=== PATIENT | female | born 1990 | race Caucasian/White ===

== ENCOUNTER 2023-04-22 02:05 | Emergency (ER) | payer OTHER, SELFPAY ==
--- NOTE | ~2023-04-22 | XR_ITS ---
Right ankle Technique: AP, oblique, and lateral views were obtained. Clinical History: Pain Findings: No acute fracture or dislocation is seen. There is a chronic nonunited fracture versus larg e secondary ossification center at the tip of the lateral malleolus. Ankle mortise and other visualiz ed joint spaces are preserved. Soft tissues are otherwise unremarkable. Impression: No acute abnormality evident. 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 Reviewed, dictated and finalized at location M. Impression: No acute abnormality evident. Chronic nonunited fracture versus large persistent secondary ossification cente r at the tip of the lateral malleolus.
[2023-04-22 02:06] VITALS: BP 136/84; PULSE 86; RESP 18; TEMP 36.4; O2SAT 99
--- NOTE | 2023-04-22 02:45 | ED.LOWEXIN ---
HPI - Extremity Injury (Lower) General Chief Complaint: Fall Stated Complaint: Right Ankle Injury Time Seen by Provider: 04/22/23 02:40 Source: patient and RN notes reviewed Mode of arrival: ambulatory Limitations: no limitations History of Present Illness MD complaint: ankle injury Onset (ago): day(s) (1) Type of Injury: inversion Place: home Severity: moderate Relieving factors: rest Exacerbating factors: weight bearing, movement and palpation Context: walking Associated symptoms: swelling and able to partially bear weight Other symptoms: none Related Data Home Medications Medication Instructions Recorded Confirmed adalimumab 40 mg/0.4 mL 40 mg subcut 04/22/23 subcutaneous pen kit (Humira(CF) Pen) ergocalciferol (vitamin D2) 1,250 1,250 mcg 04/22/23 mcg (50,000 unit) capsule famotidine 40 mg tablet 40 mg 04/22/23 ketoconazole 2 % shampoo topical 04/22/23 liraglutide 0.6 mg/0.1 mL (18 mg/3 mg subcut 04/22/23 mL) subcutaneous pen injector (Docracytoza 3-Anuj) metformin 500 mg tablet 500 mg 04/22/23 oxcarbazepine 300 mg tablet mg 04/22/23 (Trileptal) pen needle, diabetic 32 gauge x 04/22/23 04/22/23 (TRUEplus Pen Needle) spironolactone 100 mg tablet 100 mg 04/22/23 topiramate 50 mg tablet mg 04/22/23 Allergies Allergy/AdvReac Type Severity Reaction Status Date / Time amoxicillin [From Augmentin] Allergy Other Verified 04/22/23 02:08 clavulanic acid Allergy Other Verified 04/22/23 02:08 [From Augmentin] metronidazole Allergy Other Verified 04/22/23 02:08 nalbuphine [From Nubain] Allergy Other Verified 04/22/23 02:08 Review of Systems Review of Systems: All systems reviewed & are unremarkable except as noted in HPI and below PMFSH Past Medical History Medical History (Updated 04/22/23 @ 02:53 by Hever Lau MD) History of PCOS Migraines Type 2 diabetes mellitus Exam Const: General: healthy appearing, no acute distress and alert Nutritional Appearance: well nourished and obese Orientation/consciousness: patient oriented x3 Limitations: no limitations Other: female tech in room during examination. HENMT: Head: normal to inspection Ears: external ears normal Face/Nose/Sinus: Normal external nose present Face and sinus: normal facial exam Mouth: Yes moist mucous membranes Eyes: Conjunctivae: conjunctivae normal Pupils: Equal, round and reactive pupils present EOM: EOMs intact bilaterally Neck: Neck: normal visual inspection Resp: Effort & Inspection: normal respiratory effort Auscultation: clear to auscultation bilaterally Cardio: Rate: regular rate Rhythm: regular rhythm GI: GI Palp: Yes Soft to palpation and No Tenderness to palpation present (GI) Auscultation: normal bowel sounds Back/Spine/Pelvis: Cervical Spine: cervical ROM normal Thoracic/Lumbar Spine: thoraco-lumbar ROM normal Skin: General skin exam: normal color Rashes: no rashes Neuro: General: patient oriented x3, moves all extremities, no focal motor deficits and CN's II-XI intact bilaterally Speech: normal speech Extrem: General: normal exam except as noted and no clubbing, cyanosis or edema Right lower extremity: ankle Details: tenderness Location: anteromedially and swelling ( Mild) Details: medially and anteriorly Psych: Mental Status: mental status grossly normal Affect: normal affect Attitude: cooperative Course Vital Signs Vital signs: Vital Signs Temperature 36.4 C 04/22/23 02:06 Pulse Rate 86 04/22/23 02:06 Respiratory Rate 18 04/22/23 02:06 Blood Pressure 136/84 04/22/23 02:06 Pulse Oximetry 99 04/22/23 02:06 Oxygen Delivery Room Air 04/22/23 02:06 Temperature 36.4 C 04/22/23 02:06 Pulse Rate 86 04/22/23 02:06 Respiratory Rate 18 04/22/23 02:06 Blood Pressure 136/84 04/22/23 02:06 Pulse Oximetry 99 04/22/23 02:06 Oxygen Delivery Room Air 04/22/23 02:06 MDM - Extremity Injury (Lower) Differential D
[2023-04-22 03:00] VITALS: BP 136/93; PULSE 86; RESP 18; TEMP 36.4
== END 2023-04-22 03:01 | disposition home or self-care (01) ==
PROVIDERS: Emergency Provider Emergency Medicine; PCP Family Medicine
DX: S93.431A Sprain of tibiofibular ligament of right ankle, initial encounter (principal); X50.0XXA Overexertion from strenuous movement or load, initial encounter; E11.9 Type 2 diabetes mellitus without complications; Z79.84 Long term (current) use of oral hypoglycemic drugs; Z79.620 Long term (current) use of immunosuppressive biologic; Z79.85 Long-term (current) use of injectable non-insulin antidiabetic drugs
CPT/HCPCS: 29515; 73610; 99283; L4350

== ENCOUNTER 2024-06-29 17:09 | Emergency (ER) | payer OTHER, SELFPAY ==
[2024-06-29 17:11] VITALS: BP 109/74; PULSE 89; RESP 18; TEMP 36.7; O2SAT 98
== END 2024-06-29 17:48 | disposition left against medical advice (07) ==
LOC: CHSED 17:47
PROVIDERS: Emergency Provider Emergency Medicine
DX: R05.9 Cough, unspecified (principal)
CPT/HCPCS: 99199

== ENCOUNTER 2024-09-22 08:49 | Outpatient (RCR) | payer OTHER, SELFPAY ==
--- NOTE | 2024-09-22 09:40 | PTOPEVAL1 ---
Assessment and note entered by Francisco Henderson Evaluation Information Assessment Status Evaluation ICD-10 Condition Codes (PT) Pain in right hip M25.551 Onset 09/04/24 Subjective Information Pt. reports that about 3 weeks ago she was helping lift her overweight uncle, and noticed right hip pain. She describes pain in the lateral right hip. She states that her pain is constant and worsened with walking or crossing her right leg over the left. She reports that pain makes sleeping difficult and she wakes frequently at night. She recalls no prior hip injury. 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 She states that she can only walk for about 5 minutes currently due to hip pain. She reports that her goal is to reduce her right hip pain and be able to walk longer. Reported Pain Level Pain Score 3: Self Report Assessment PT Clinical Summary Pt. is a 34 year old female who enters the clinic with a diagnosis of low back pain. She presents with proximal l.e. weakness, impaired gait due to pelvic/hip instability, impaired flexibility, impaired postural awareness and pain. Continued skilled PT is indicated in order to improve these areas to allow the pt. to return to normal IADL performance without limitation. Plan of Care Interventions Electrical Stimulation,Gait Training,Hot Pack/Cold Pack,Manual Therapy,Mechanical Traction,Neuro Re- education,Patient/Caregiver Education,Therapeutic Activities,Therapeutic Exercise PT Services Indicated Yes Treatment Frequency and 2x/week x 12 visits Duration These treatments will address the objective and functional deficits as defined above. The patient will be advanced safely and appropriately in order for the patient to progress towards his/her prior level of function. Additional exercises will be introduced and as well as a comprehensive home exercise program upon discharge, if needed, to ensure carryover of functional gains achieved in the clinic. This treatment plan has been reviewed and agreement upon by the patient.
--- NOTE | 2024-09-30 09:39 | PCPTNOTE ---
No call no show. left for pt.
== END 2024-09-22 20:00 | disposition home or self-care (01) ==
LOC: CHSPT 08:49
PROVIDERS: Visit Provider Nurse Practitioner Family
DX: M25.551 Pain in right hip (principal)
CPT/HCPCS: 97110; 97161

== ENCOUNTER 2024-10-03 15:16 | Emergency (ER) | payer OTHER, SELFPAY ==
[2024-10-03 15:17] VITALS: BP 116/83; PULSE 87; RESP 20; TEMP 36.6; O2SAT 98
--- NOTE | 2024-10-03 15:18 | ED_ITS ---
HPI - General Adult General Chief complaint: Nausea/Vomiting/Diarrhea Stated complaint: abdominal pain Time Seen by Provider: 10/03/24 15:18 History of Present Illness HPI narrative: Yancy is a 34F with a PMH of weight loss surgery, that presented to the ED with 3 days of inability to tolerate PO. Anytime she eats she gets terrible epigastric cramps. Today it was much worse and she could not drink anything. Last BM was yesterday. No vomiting, fevers, chest pain or dyspnea. Related Data Home Medications ?Medication ?Instructions ?Recorded ?Confirmed ?Last Taken ?Type adalimumab 40 mg/0.4 mL 40 mg subcut 04/22/23 Unknown History subcutaneous pen kit (Humira(CF) Pen) ergocalciferol (vitamin D2) 1,250 1,250 mcg 04/22/23 Unknown History mcg (50,000 unit) capsule famotidine 40 mg tablet 40 mg 04/22/23 Unknown History ketoconazole 2 % shampoo topical 04/22/23 Unknown History liraglutide 0.6 mg/0.1 mL (18 mg/3 mg subcut 04/22/23 Unknown History mL) subcutaneous pen injector (Mozendaza 3-Anuj) metformin 500 mg tablet 500 mg 04/22/23 Unknown History oxcarbazepine 300 mg tablet mg 04/22/23 Unknown History (Trileptal) pen needle, diabetic 32 gauge x 04/22/23 04/22/23 Unknown History (TRUEplus Pen Needle) spironolactone 100 mg tablet 100 mg 04/22/23 Unknown History topiramate 50 mg tablet mg 04/22/23 Unknown History Allergies Allergy/AdvReac Type Severity Reaction Status Date / Time amoxicillin (From Augmentin) Allergy Other Verified 06/29/24 17:47 clavulanic acid (From Allergy Other Verified 06/29/24 17:47 Augmentin) metronidazole Allergy Other Verified 06/29/24 17:47 nalbuphine (From Nubain) Allergy Other Verified 06/29/24 17:47 Review of Systems 2 Review of Systems: All systems reviewed & are unremarkable except as noted in HPI and below PMFSH Past Medical History Medical History Type 2 diabetes mellitus History of PCOS Migraines Exam 2 Const: General: cooperative, healthy appearing, comfortable, no acute distress, well developed, alert, awake and Physically active O rientation/consciousness: oriented to person, oriented to place and oriented to time HENMT: Head: normal to inspection, normocephalic and atraumatic Ears: h earing grossly normal bilaterally and external ears normal Face/Nose/Sinus: N ormal external nose present Eyes: General: appearance normal, both eyes and all related structures P eriorbital: periorbital findings normal Sclera: sclerae normal Pupils: E qual, round and reactive pupils present Neck: Neck: normal visual inspection Chest: Chest palpation & inspection: normal inspection of the chest Resp: Effort & Inspection: normal respiratory effort, able to speak in complete sentences and no respiratory distress Auscultation: clear to auscultation bilaterally Cardio: Jugular venous distension: no JVD Rate: regular rate Rhythm: r egular rhythm GI: Inspection: normal to inspection GI Palp: Yes Soft to palpation, Yes Tenderness to palpation present (GI), No Guarding due to palpation present (GI), No Palpable mass present and No Rebound tenderness present Auscultation: H ypoactive bowel sounds present Skin: General skin exam: normal color and no rashes or lesions noted Neuro: General: oriented to person, oriented to place and oriented to time Cranial nerves: Yes Equal, round and reactive pupils present Extrem: General: normal to inspection Course Course Emergency Course: Given fluids and dicyclomine. Labs largely unremarkable. UA c/w UTI. Given ceftriaxone. Vital Signs Vital signs: Vital Signs Temperature 97.9 F 10/03/24 15:17 Pulse Rate 87 10/03/24 15:17 Respiratory Rate 20 10/03/24 15:17 Blood Pressure 116/83 10/03/24 15:17 Pulse Oximetry 98 10/03/24 15:17 Oxygen Delivery Room Air 10/03/24 15:17 Temperature 97.9 F 10/03/24 15:17 Pulse Rate 87 10/03/24 15:17 Respiratory Rate 20 10/03/24 15:17 Blood Pressure 116/83 10/03/24 15:17 Pulse Oximetry 98 10/03/24 15:17 Oxygen Delivery Room Air 10/03/24 15:17 Medical Decision Making Vital Signs Vital Signs: Vital Signs Temperature 97.9 F 10/03/24 15:17 Pulse Rate 87 10/03/24 15:17 Respiratory Rate 20 10/03/24 15:17 Blood Pressure 116/83 10/03/24 15:17 Pulse Oximetry 98 10/03/24 15:17 Oxygen Delivery Room Air 10/03/24 15:17 Temperature 97.9 F 10/03/24 15:17 Pulse Rate 87 10/03/24 15:17 Respiratory Rate 20 10/03/24 15:17 Blood Pressure 116/83 10/03/24 15:17 Pulse Oximetry 98 10/03/24 15:17 Oxygen Delivery Room Air 10/03/24 15:17 Lab Data 10/03/24 15:51 10/03/24 15:51 Labs: Lab Results 10/03/24 Range/Units 15:51 WBC 9.8 (4.8-10.8) K/mm3 RBC 5.01 (4.20-5.40) M/mm3 Hgb 14.9 (12.0-15.0) g/dL Hct 44.6 (35.0-49.0) % MCV 89.0 (78.0-102.0) fL MCH 29.7 (27.0-31.0) pg MCHC 33.4 (32-36) g/dL RDW 13.2 (11.6-14.4) % Plt Count 339 (150-420) K/mm3 MPV 9.4 (9.2-11.8) fl Immature Gran % (Auto) 0.3 H (0.0-0.0) % Neut % (Auto) 56.8 (50.0-70.0) % Lymph % (Auto) 36.4 (18.0-42.0) % [place] % (Auto) 5.3 (2.0-11.0) % Eos % (Auto) 0.8 L (1.0-6.0) % Baso % (Auto) 0.4 (0.0-1.0) % Lymph # (Auto) 3.56 (1.10-4.50) K/mm3 [place] # (Auto) 0.52 (0.10-0.90) K/mm3 Eos # (Auto) 0.08 (0.02-0.50) K/mm3 Baso # (Auto) 0.04 (0.00-0.10) K/mm3 Abs Immat Gran (auto) 0.03 H (0.00-0.00) K/mm3 Absolute Neuts (auto) 5.55 (1.70-7.20) K/mm3 Absolute Nucleated RBC 0.00 (0.00-0.00) K/mm3 Nucleated RBC % 0.0 (0-0.0) % Sodium 135 L (136-145) mmol/L Potassium 3.3 L (3.5-5.1) mmol/L Chloride 100 (98-108) mmol/L Carbon Dioxide 27 (21-32) mmol/L Anion Gap 8 (4-12) mmol/L BUN 8 (7-18) mg/dL Creatinine 0.79 (0.55-1.02) mg/dL Estim Creat Clear Calc 85 ml/min Estimated GFR > 60 (59 - ) Glucose 76 (70-99) mg/dL Calculated Osmolality 277 L (285-295) mOsm/kg Lactic Acid 1.0 (0.4-2.0) mmol/L Calcium 8.9 (8.5-10.1) mg/dL Total Bilirubin 0.5 (0.00-1.00) mg/dL AST 17 (15-37) U/L ALT 18 (14-59) U/L Alkaline Phosphatase 104 (46-116) U/L C-Reactive Protein 0.6 (0.0-0.9) mg/dL Total Protein 7.6 (6.4-8.2) g/dL Albumin 3.9 (3.4-5.0) g/dL Lipase 15 L (16-77) U/L Urine Color Yellow (Yellow) Urine Appearance Cloudy A (Clear) Urine pH 5.0 (5.0-8.0) Ur Specific [place] >= 1.030 H (1.010-1.020) Urine Protein Trace H (Negative) Urine Glucose (UA) Negative (Negative) Urine Ketones 1+ H (Negative) Ur Blood (Man) Negative (Negative) Urine Nitrate Positive H (Negative) Urine Bilirubin 2+ H (Negative) Urine Urobilinogen 1.0 (0.2-1.0) mg/dL Leukocyte Esterase Rfl Negative (Negative) APRIL/UL Ur Squamous Epith Cells Many H (Few) /hpf Calcium Oxalate Crystal Present H (None) /hpf Amorphous Sediment Moderate H (None) Urine Bacteria 3+ H (None) /hpf Urine Mucus Heavy H /lpf Urine Test Negative Discharge Plan Discharge Clinical Impression: UTI (urinary tract infection) Patient Disposition: Home, Self-Care Condition: Stable Instructions: Antibiotic Form Patient Language: Nicaraguan Prescriptions: New sulfamethoxazole-trimethoprim [Bactrim DS] 800-160 mg tablet 1 tablet PO Q12H Qty: 10 0RF No Action metformin 500 mg tablet 500 mg ketoconazole 2 % shampoo TOPICAL famotidine 40 mg tablet 40 mg spironolactone 100 mg tablet 100 mg oxcarbazepine [Trileptal] 300 mg tablet ergocalciferol (vitamin D2) 1,250 mcg (50,000 unit) capsule 1,250 mcg topiramate 50 mg tablet Victoza 3-Anuj 0.6 mg/0.1 mL (18 mg/3 mL) pen injector SUBCUT (DME) pen needle, diabetic [TRUEplus Pen Needle] 32 gauge x 5/32 needle MISCELLANEOUS Humira(CF) Pen 40 mg/0.4 mL pen injector kit 40 mg SUBCUT Follow-up/Referrals: Danica Blair MD [Primary Care Provider] -
--- OUTSIDE RECORDS SUMMARY | 2024-10-03 15:19 | XMS_ITS | Referral Summary ---
Author Organization [facility] Address [address] [place] [address] Care Team Providers Care Broadcast Meteorologist Name Role Phone Unavailable Primary Care Provider Unavailabl e Source Comments [facility],non-owned Affiliates and Associated Physician Practices is amultiple site organization consisting of ambulatory clinics and hospital sitesin [place], [place], [place] and [place]. This disclosure is being madepursuant to the Care Everywhere program and may not contain all information available regarding this patient. Last updated 18.[facility] Social History Tobacco Use Types Packs/Day Years Used Date Smoking Tobacco: Never Assessed Sex and Gender Information Value Date Recorded Sex Assigned at Not on file Gender Identity Not on file Sexual Orientation Not on file Plan of Treatment Not on file
--- OUTSIDE RECORDS SUMMARY | 2024-10-03 15:19 | XMS_ITS | Clinical Summary ---
Author Organization [facility] Address [address] [place] [address] Care Team Providers Care Asphalt Roller Person Name Role Phone Unavailable Primary Care Provider Unavailabl e Source Comments [facility],non-owned Affiliates and Associated Physician Practices is amultiple site organization consisting of ambulatory clinics and hospital sitesin [place], [place], [place] and [place]. This disclosure is being madepursuant to the Care Everywhere program and may not contain all information available regarding this patient. Last updated 18.[facility] [employer] Social History Tobacco Use Types Packs/Day Years Used Date Smoking Tobacco: Never Assessed Sex and Gender Information Value Date Recorded Sex Assigned at Not on file Gender Identity Not on file Sexual Orientation Not on file Plan of Treatment Health Maintenance Due Date Last Done Comments PAP SMEAR 1991 HIV SCREENING 2006 HEPATITIS C SCREENING 03/06/2009 DTAP/TDAP/TD VACCINES (1 - Tdap) 2010 HEPATITIS B VACCINE (1 of 3 - 19+ 3-dose series) 2010 COVID-19 VACCINE ( - 2023-2 5 season) 2024 INFLUENZA VACCINE (#1) 2024 DEPRESSION SCREENING 07/21/2024 ZOSTER VACCINE (1 of 2) 2041 HIB VACCINE Aged Out No longer eligi ble based on patient's age to complete this topic HPV VACCINE Aged Out No longer eligi ble based on patient's age to complete this topic MENINGOCOCCAL (Group B) VACC INE SHARED DECISION-MAKING Aged Out No longer eligibl e based on patient's age to complete this topic MENINGOCOCCAL GROUPS A/C/Y/W VACCINE Aged Out No longer eligible b ased on patient's age to complete this topic PNEUMOCOCCAL VACCINE Aged Out No long er eligible based on patient's age to complete this topic
--- OUTSIDE RECORDS SUMMARY | 2024-10-03 15:19 | XMS_ITS | Patient Health Summary ---
Author Organization [facility] Address [address] [place] [address] Care Team Providers Care Dental Technician Apprentice Name Role Phone Unavailable Primary Care Provider Unavailabl e Note from [facility] [place],non-owned Affiliates and Associated Physician Practices is amultiple site organization consisting of ambulatory clinics and hospital sitesin [place], [place], [place] and [place]. This disclosure is being madepursuant to the Care Everywhere program and may not contain all information available regarding this patient. Last updated 18.[facility] Social History Tobacco Use Types Packs/Day Years Used Date Smoking Tobacco: Never Assessed Sex and Gender Information Value Date Recorded Sex Assigned at Not on file Gender Identity Not on file Sexual Orientation Not on file
[2024-10-03] MEDS: LACTATED RINGERS 1,000 ML 999 ML IV CONT (15:43)
[2024-10-03] MEDS: DICYCLOMINE HCL INJ 20 MG/2 ML VIAL IM (15:44)
--- OUTSIDE RECORDS SUMMARY | 2024-10-03 15:52 | XMS_ITS | Referral Summary ---
Author Organization [facility] Address [address] [place] [address] Care Team Providers Care Blood Collector Name Role Phone Unavailable Primary Care Provider Unavailabl e Source Comments [facility],non-owned Affiliates and Associated Physician Practices is amultiple site organization consisting of ambulatory clinics and hospital sitesin [place], [place], [place] and [place]. This disclosure is being madepursuant to the Care Everywhere program and may not contain all information available regarding this patient. Last updated 18.[facility] Social History Tobacco Use Types Packs/Day Years Used Date Smoking Tobacco: Never Assessed Sex and Gender Information Value Date Recorded Sex Assigned at Not on file Gender Identity Not on file Sexual Orientation Not on file Plan of Treatment Not on file
--- OUTSIDE RECORDS SUMMARY | 2024-10-03 15:52 | XMS_ITS | Encounter Summary ---
Author Organization [facility] Address [address] [place] [address] Phone Care Team Providers Care Manifest Clerk Name Role Phone Danica Blair MD Primary Care Provider Rachel Moreira PT Unavailable Unavailable Encounter Details Date Type Department Care Team (Latest Contact Info) Description 09/18/2022 Orders Only [facility] Scanning, Provider Social History Tobacco Use Types Packs/Day Years Used Date Smoking Tobacco: Every Day Vaping Smokeless Tobacco: Never Comments Unknown Sex and Gender Information Value Date Recorded Sex Assigned at Not on file 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 Gender Identity Not on file Sexual Orientation Not on file documented as of this encounter Plan of Treatment Not on file documented as of this encounter Procedures Procedure Name Priority Date/Time Associated Diagnosis Comments SCAN - LABS 09/18/2022 documented in this encounter Results * SCAN - LABS (09/18/2022) us Provider Scanning Final Result documented in this encounter Visit Diagnoses Not on filedocumented in this encounter Care Teams Manifest Clerk Relationship Specialty Start Date End Date Danica Blair MD [address] [place] [address] PCP - General Family Medicine 06/18/21 Rachel Moreira, PT Physical Therapist Physical Therapy 07/24/23 07/24/23 documented as of this encounter
--- OUTSIDE RECORDS SUMMARY | 2024-10-03 15:52 | XMS_ITS | Referral Summary ---
Author Organization [facility] [address] [facility] Address [address] [place] [address] Care Team Providers Care Psych Np Name Role Phone Danica Blair MD Primary Care Provider Encounters Date Type Department Care Team Description 08/12/2024 11:00 AM PARALEGALS Office Visit [facility] [address] [place] [address] Medical Office Building [address] [place] [address] Agapito Steven MD Morbid obesity (HCC) (Primary Dx) from Last 3 Months Allergies Active Allergy Reactions Criticality Noted Date Comments Amoxicillin-Pot Clavulanate Nausea & Vomiting Low 05/03/2022 Metronidazole Other (See comments) Low 05/03/2022 Red face and disoriented Nalbuphine Other (See comments) Low 05/03/2022 Forgot to breath Medications Humira,CF, Pen 40 mg/0.4 mL pen injector kitIndications:H irdradentis Suppurativa Inject 0.4 mL (40 mg total) under the skin every 7 days 2 Active ergocalciferol (VITAMIN D) 50,000 unit capsule Take 1 capsule (50,000 Units total) by mouth once a week Friday 1 Active pen needle, diabetic (TRUEplus Pen Needle) 32 gauge x 5/32 needle USE DAILY DIRECTED 300 each 1 4 Active cyclobenzaprine (FLEXERIL) 10 mg tablet Take 1 tablet (10 mg total) by mouth every 8 (eight) hours Post surgery: Every 8 hours for 4 days 12 tablet 4 Active Additional Information Patient not taking.Informant: Self, Reported on 08/12/2024 cyanocobalamin (Vitamin B-12) 500 mcg tablet Take 1 tablet (500 mcg total) by mouth daily Start post Surgery 90 tablet 3 4 04/28/20 25 Active calcium citrate-vitamin D3 200 mg-6.25 mcg (250 unit) tablet Take 2 tablets by mouth 3 (three) times a day Start post-surgery 540 tablet 3 4 04/28/20 25 Active ondansetron (ZOFRAN) 4 mg tablet Take 1 tablet (4 mg total) by mouth every 8 (eight) hours as needed for nausea or vomiting Start post-surgery 20 tablet 2 4 Active ursodioL (ACTIGALL) 300 mg capsule Take 1 capsule (300 mg total) by mouth 2 (two) times a day Start post-surgery 180 capsule 1 4 10/26/19 25 Active polyethylene glycol (MIRALAX) 17 gram/dose bulk powder Take 17 g by mouth 2 (two) times a day Start post-surgery 1020 g 4 Active hyoscyamine (LEVSIN) 0.125 mg SL tabletIndication s:Gastric Cramping Take 1 tablet (0.125 mg total) by mouth every 6 (six) hours for 4 days Start post-surgery 16 tablet 4 Active omeprazole (PriLOSEC) 20 mg capsule Take 1 capsule (20 mg total) by mouth 2 (two) times a day START POST SURGERY 60 capsule 4 Active multivitamin with minerals tablet Take 2 tablets by mouth daily Start taking post surgery 60 tablet 11 4 04/28/20 25 Active valACYclovir (VALTREX) 1 gram tabletIndication s:Fever Blister Take 1 tablet (1,000 mg total) by mouth daily as needed (Fever Blister) 4 Active Strattera 80 mg capsule Take 1 capsule (80 mg total) by mouth 2 (two) times a day 4 Active liraglutide (VICTOZA) 0.6 mg/0.1 mL (18 mg/3 mL) injectionIndicat ions:type 2 diabetes mellitus Inject 1.8 mg under the skin daily Indications: type 2 diabetes mellitus Active Active Problems Problem Noted Date Diagnosed Date Morbid (severe) obesity due to excess calories 1 Morbid obesity 04/08/2024 Hair loss 10/20/2023 Assessment & Plan (10/20/2023 10:40 AM CDT): Briefly discussed TE and potential contributing factors including stress, medication, weight loss/diet/nutritional deficiencies. Ferritin a little under 50 -- consider iron supplement -- ferrous sulfate 325 mg every other day. Vitamin D deficiency 10/20/2023 Weight loss counseling, encounter for 09/25/2022 Assessment & Plan (01/13/2023 10:15 PM CDT): Reviewed calorie restriction based on BMR as previously detailed. Reviewed recommendation/goal of >/= 150 minutes/week moderate-intensity aerobic exercise. Asked to keep detailed food diary for at least 1 week and bring to next visit and/or continue tracking on phone. Assessment & Plan (09/25/2022 10:06 PM PARALEGALS): Discussed that significant health benefits/risk reduction may be seen with even 5% weight loss. Discussed that weight loss will require calorie deficit. Calculated basal metabolic rate and estimated total energy expenditure; discussed 500-1000 kcal/day deficit to lose 1-2 lb per week. Asked to keep detailed food diary for at least 1 week and bring to next visit. Discussed setting SMART goals. Discussed relatively small, although significant, role of exercise in weight loss; greater importance in weight maintenance as shown in Look Ahead study and National Weight Control Registry. Discussed recommendation/goal for 150 minutes per week moderate-intensity aerobic exercise. Class 3 severe obesity due t o excess calories with serious comorbidity and body mass index (BMI) of 40.0 to 44.9 in adult 09/25/2022 Assessment & Plan (01/13/2023 10:22 PM CDT): Obesity is unchanged.. Plan: Diet interventions: as noted.., Regular aerobic exercise program discussed., and Medication as prescribed. Follow up in [] 1 month; [] 2 months; [x] 3 months; [] 6 months; [] Other: Assessment & Plan (09/25/2022 10:10 PM PARALEGALS): Obesity is unchanged.. Plan: General weight loss/lifestyle modification strategies discussed (elicit support from others; identify saboteurs; non-food rewards; etc.)., Diet interventions: as noted.., Informal exercise measures discussed; e.g. taking stairs instead of elevator., Regular aerobic exercise program discussed. and Further, more detailed recommendations pending review of labs and food record. Type 2 diabetes mellitus wit hout complication, without long-term current use of insulin 05/03/2022 Assessment & Plan (01/13/2023 10:18 PM CDT): Reviewed most recent labs available. Continue low-carb (<150 g/day), low- glycemic diet. Discussed options and will add GLP-1 analog. Discussed risks, benefits, alternatives, potential side effects. No personal or family history of MTC or MEN2. Reviewed dosing/titration; for patients seen in the office, reviewed proper administration using demo pen; reviewed appropriate storage. Referred to websites for additional instructions/info/video. Start liraglutide. Assessment & Plan (09/25/2022 10:08 PM PARALEGALS): Labs. Reviewed available prior labs in chart and Care Everywhere. Continue metformin. Good candidate for tirzepatide or GLP-1 RA. NAFLD (nonalcoholic fatty liver disease) 022 Assessment & Plan (09/25/2022 10:08 PM PARALEGALS): Discussed association with insulin resistance. Discussed potential for improvement and/or reduced progression with weight loss. Resolved Problems Problem Noted Date Diagnosed Date Resolved Date Obesity (BMI 30-39.9) 10/20/20232023 BMI 38.0-38.9,adult 05/03/2022 11/23/19 24 Social History Tobacco Use Types Packs/Day Years Used Date Smoking Tobacco: Former Cigarettes 0.5 24 0 08/1999 - 08/2023 Vaping Passive Smoke Exposure: Past Smokeless Tobacco: Never Tobacco Cessation:Counseling Given: Not Answered AUDIT-C Answer Date Recorded Q1: How often do you have a drink containing alcohol? Never 08/12/2024 Q2: How many drinks containi ng alcohol do you have on a typical day when you are drinking? Patient does not drink Q3: How often do you have si x or more drinks on one occasion? Never 08/12/2024 Personal Safety Answer Date Recorded Have you ever been in or are you currently in a harmful physical or emotional relationship or is someone making you feel afraid or unsafe? Denies 05/10/2024 Comments No Sex and Gender Information Value Date Recorded Sex Assigned at Not on file Legal Sex Female 11:49 AM PARALEGALS Gender Identity Not on file Sexual Orientation Not on file Last Filed Vital Signs Vital Sign Reading Time Taken Comments Blood Pressure 110/79 08/12/2024 10:47 AM PARALEGALS Pulse 81 08/12/2024 10:47 AM PARALEGALS Temperature 36.7 C (98.1 F) 06/24/2024 10:29 AM PARALEGALS Respiratory Rate 16 05/11/2024 11:53 AM CDT Oxygen Saturation 97% 08/12/2024 10:47 AM PARALEGALS Inhaled Oxygen Concentration - - Weight 86 kg (189 lb 9.6 oz) 08/12/2024 10:47 AM PARALEGALS Height 160 cm (5' 3 ) 08/12/2024 10:47 AM PARALEGALS Body Mass Index 33.59 08/12/2024 10:47 AM PARALEGALS Plan of Treatment Not on file Procedures Procedure Name Priority Date/Time Associated Diagnosis Comments EGFR Routine 05/10/2024 10:02 PM CDT POCT HEMOGLOBIN A1C Routine 05/05/2024 4 :54 PM CDT HEPATITIS C ANTIBODY Routine 11/21/2023 10:08 AM CDT NAFLD (nonalcoholic fatty liver disease) LIPID PANEL Routine 05/03/2022 9:26 AM CDT Hepatic steatosis Type 2 diabetes mellitus without complication, without long-term current use of insulin (HCC) from Last 3 Months or Most Recently Relevant to Health Maintenance Results * eGFR (05/10/2024 10:02 PM CDT) eGFR >90 >=60 mL/min/1. 73 m2 Comment: Interpretive Data Reference Interval Normal >/= 90 mL/min/1.73m2 Mildly decreased* 60 - 89 mL/min/1.73m2 Mildly to moderately decreased 45 - 59 mL/min/1.73m2 Moderately to severely decreased 30 - 44 mL/min/1.73m2 Severely decreased 15 - 29 mL/min/1.73m2 Kidney Failure < 15 mL/min/1.73m2 *Relative to young adult level Estimated glomerular filtration rate is determined by the 2020 CKD-EPI equation recommended by the National Kidney Foundation (A Unifying Approach to GFR Estimation: Recommendations of the NKF-ASK Task Force on Reassessing the Inclusion of Race in Diagnosing Kidney Disease, JASN 2020). The CKD-EPI equation should not be used for patients with unstable renal function and has not been validated in children and those over 70. Current interpretive data was last reviewed 2021. Blood 05/10/2024 10:0 2 PM CDT 05/10/2024 10:02 PM CDT us Agapito Steven MD LAB BLOOD ORDERABLES Final Resul t [facility] [address] [facility]. Department [place] [address] * POCT hemoglobin A1c (05/05/2024 4:54 PM CDT) Hgb A1C, POC 5.5 4.0 - 5.6 % Est Average Gluc POC 111 mg/dL [facility] Comment: The ADA recommends reporting an estimated Average Glucose (eAG) with all Hemoglobin A1c results using the equation derived from a study of 507 normal and diabetic adults. Minority populations were underrepresented and children were not included. (Diabetes Care 31:7586-7565, 2008). The eAG is not equivalent to a fasting glucose. Blood 05/05/2024 4:54 PM CDT 05/05/2024 4:54 PM CDT Agapito Steven MD POINT OF CARE TEST ORDERABLES Fi nal Result Performing Organization Address [facility] Co de Phone Number [facility] [place] [address] * Hepatitis C antibody Blood (11/21/2023 10:08 AM CDT) Hep C Ab Nonreactive Nonreactive Comment:Antibodies to HCV no t detected. Does NOT exclude the possibility of recent exposure to HCV. Current interpretive data was last revised on 22 Blood 11/21/2023 10:0 8 AM CDT 11/21/2023 11:58 AM CDT Sherif Keys MD LAB MICROBIOLOGY - GENER AL ORDERABLES Final Result Performing Organization Address [facility] Co de Phone Number [facility] [place] [address] * (ABNORMAL) Lipid panel (05/03/2022 9:26 AM CDT) Cholesterol 224(H) 30 - 199 mg/dL [facility] Comment: Interpretive Data Ages < or = 19 years Acceptable: <170 mg/dL Borderline high: 170-199 mg/dL High: >or= 200 mg/dL Ages > or = 20 years Desirable: <200 mg/dL Borderline high: 200-239 mg/dL High: >or= 240 mg/dL Literature References: 1. Expert Panel on Integrated Guidelines for Cardiovascular Health and Risk Reduction in Children and Adolescents. Pediatrics 2011;128:S213 2. NCEP Expert Panel. Circulation 2004;110:227 Current Interpretive Data was last revised on 2018. Triglycerides 183(H) <=149 mg/dL [facility] Comment: Interpretive Data Ages < or = 9 years Acceptable: <75 mg/dL Borderline high: 75-99 mg/dL High: >or= 100 mg/dL Ages 10 to 20 years Acceptable: <90 mg/dL Borderline high: 90-129 mg/dL High: >or= 130 mg/dL Ages > or = 20 years Desirable: <150 mg/dL Borderline high: 150-199 mg/dL High: 200-499 mg/dL Very high: >or= 499 mg/dL Literature References: 1. Expert Panel on Integrated Guidelines for Cardiovascular Health and Risk Reduction in Children and Adolescents. Pediatrics 2011;128:S213 2. NCEP Expert Panel. Circulation 2004;110:227 Current Interpretive Data was last revised on 2018. HDL 32(L) >=40 mg/dL [facility] Comment: Interpretive Data Ages < or = 19 years Acceptable: >45 mg/dL Borderline low: 40-45 mg/dL Low: <40 mg/dL Ages > or = 20 years Desirable: >or= 60 mg/dL Low: <40 mg/dL Literature References: 1. Expert Panel on Integrated Guidelines for Cardiovascular Health and Risk Reduction in Children and Adolescents. Pediatrics 2011;128:S213 2. NCEP Expert Panel. Circulation 2004;110:227 Current Interpretive Data was last revised on 2018. LDL, calculated 155(H) <=129 mg/dL [facility] Comment: Interpretive Data Ages < or = 19 years Acceptable: <110 mg/dL Borderline high: 110-129 mg/dL High: >or= 130 mg/dL Ages > or = 20 years Optimal: <100 mg/dL Near optimal: 100-129 mg/dL Borderline high: 130-159 mg/dL High: >160 mg/dL Literature References: 1. Expert Panel on Integrated Guidelines for Cardiovascular Health and Risk Reduction in Children and Adolescents. Pediatrics 2011;128:S213 2. NCEP Expert Panel. Circulation 2003;110:227 Current Interpretive Data was last revised on 2018. Non-HDL Cholesterol 192 mg/dL [facility] Comment: Interpretive Data Ages < or = 19 years Acceptable: <120 mg/dL Borderline high: 120-144 mg/dL High: >145 mg/dL Ages > or = 20 years When triglycerides are >200 mg/dL, Non-HDL cholesterol is a secondary target of therapy with treatment goals that are 30 mg/dL greater than the LDL cholesterol target. Literature References: 1. Expert Panel on Integrated Guidelines for Cardiovascular Health and Risk Reduction in Children and Adolescents. Pediatrics 2011;128:S213 2. NCEP Expert Panel. Circulation 2004;110:227 Current Interpretive Data was last revised on 2018. [facility]/HDL ratio [facility] Blood 05/03/2022 9:26 AM CDT 05/03/2022 11:30 AM CDT Sherif Keys MD LAB BLOOD ORDERABLES Fin al Result [facility] Department [place] [address] from Last 3 Months or Most Recently Relevant to Health Maintenance Insurance [facility] Advance Directives For more information, please contact: [phone] * Full Code (Latest Code Status on File) Date Activated Date Inactivated Comments 05/10/2024 12:21 PM 05/11/2024 7:25 PM * Full Code Date Activated Date Inactivated Comments 12/29/2023 8:43 AM 12/29/2023 4:18 PM Care Teams Psych Np Relationship Specialty Start Date End Date Danica Blair MD [address] [place] [address] PCP - General Family Medicine 06/18/21
--- OUTSIDE RECORDS SUMMARY | 2024-10-03 15:52 | XMS_ITS | Clinical Summary ---
Author Organization [facility] Address [address] [place] [address] Care Team Providers Care Pest Control Service Representative Name Role Phone Unavailable Primary Care Provider Unavailabl e Source Comments [facility],non-owned Affiliates and Associated Physician Practices is amultiple site organization consisting of ambulatory clinics and hospital sitesin [place], [place], [place] and [place]. This disclosure is being madepursuant to the Care Everywhere program and may not contain all information available regarding this patient. Last updated 18.[facility] [employer] Social History Tobacco Use Types Packs/Day Years [...]
--- OUTSIDE RECORDS SUMMARY | 2024-10-03 15:52 | XMS_ITS | Clinical Summary ---
Author Organization [facility] Address [address] [place] [address] Care Team Providers Care Insurance Consultant Name Role Phone Danica Blair MD Primary Care Provider Allergies Active Allergy Reactions Criticality Noted Date Comments Amoxicillin-Pot Clavulanate Unknown,Nausea and Vomiting Low 11/24/2020 Metronidazole Unknown,Other (see comment) Low 11/24/2020 Red face and disoriented Nalbuphine Unknown,Other (see comment) Low 11/24/2020 breathing Medications vitamin D2, ergocalciferol, 57629 UNITS capsule 1 (one) Capsule weekly x 8 weeks 1 Active meclizine 25 MG chewable tablet 25-50mg three times a day as needed for dizziness 20 tablet 1 Active adalimumab (HUMIRA PEN) 40 MG/0.4ML pen-injector kit 2 Active metFORMIN (GLUCOPHAGE) 500 MG tablet TAKE 1 TABLET BY MOUTH WITH BREAKFAST AND SUPPER 2 Active VICTOZA 18 MG/3ML injection Inject 0.6 mg into the skin daily. 3 Active OXcarbazepine (TRILEPTAL) 300 MG tablet Take 1 tablet (300 mg total) by mouth 2 (two) times daily. 3 Active albuterol sulfate HFA 108 (90 Base) MCG/ACT inhaler Inhale 2 puffs into the lungs every 4 (four) hours as needed for Wheezing. 18 g 4 Active Encounters Date Type Department Care Team Description 09/15/2024 10:06 AM PROPERTY PORTFOLIO OFFICER - 09/15/2024 11:59 PM PROPERTY PORTFOLIO OFFICER Hospital Encounter [facility] [address] [place] [address] Isabell Tariq NP Discharge Disposition: Home or Self Care (Routine Discharge) 09/15/2024 Travel from Last 3 Months Social History Tobacco Use Types Packs/Day Years Used Date Smoking Tobacco: Every Day Electronic Cigarettes Smokeless Tobacco: Never Alcohol Use Standard Drinks/Week Comments Yes 0 (1 standard drink = 0.6 oz pur e alcohol) SOCIALLY Comments No Sex and Gender Information Value Date Recorded Sex Assigned at Not on file Legal Sex Female 5:55 PM PROPERTY PORTF[employer]IO OFFICER Gender Identity Not on file Sexual Orientation Not on file Last Filed Vital Signs Vital Sign Reading Time Taken Comments Blood Pressure 104/70 06/30/2024 10:45 AM PROPERTY PORTFOLIO OFFICER Pulse 85 06/30/2024 10:45 AM PROPERTY PORTFOLIO OFFICER Temperature 36.3 C (97.3 F) 06/30/2024 9:11 AM PROPERTY PORTFOLIO OFFICER Respiratory Rate 18 06/30/2024 10:45 AM PROPERTY PORTFOLIO OFFICER Oxygen Saturation 97% 06/30/2024 10:45 AM PROPERTY PORTFOLIO OFFICER Inhaled Oxygen Concentration - - Weight 93.2 kg (205 lb 6.4 oz) 06/30/2024 9:11 A M PROPERTY PORTF[employer]IO OFFICER Height 160 cm (5' 3 ) 06/30/2024 9:11 AM PROPERTY PORTFOLIO OFFICER Body Mass Index 36.38 06/30/2024 9:11 AM PROPERTY PORTFOLIO OFFICER Plan of Treatment Health Maintenance Due Date Last Done Comments Cervical Cancer Screening Pa p Smear (Age 30 to 64) Every 3 Years 1991 Annual Physical 1994 Pneumococcal Vaccine: Pediatrics (0 to 5 Years) and At-Risk Patients (6 to 64 Years) (1 of 2 - PCV) 1997 DTaP, Tdap and Td Vaccines ( 1 - Tdap) 2010 Hepatitis B Vaccines (1 of 3 - 19+ 3-dose series) 2010 Cervical Cancer Screening Pa p with HPV Testing (Age 30 to 64) Every 5 Years 2021 Cervical Cancer Screening wi th HPV 2021 COVID-19 Vaccine (2 - 2023-2 5 season) 2024 10/06/2020 Influenza Adult (#1) 2024 Hepatitis C Completed 05/03/2022, 05/03/2022, 05/03/2022 HPV Vaccines Aged Out No longer eligi ble based on patient's age to complete this topic Meningococcal B Vaccine Aged Out No l onger eligible based on patient's age to complete this topic Meningococcal Vaccine Aged Out No yenni edu eligible based on patient's age to complete this topic RSV Immunizations Under 20 Months Aged Out No longer eligible b ased on patient's age to complete this topic Procedures Procedure Name Priority Date/Time Associated Diagnosis Comments XR HIP RT 2V Routine 09/15/2024 10:23 AM PROPERTY PORTFOLIO OFFICER Right hip pain from Last 3 Months Results * XR HIP RT 2V (09/15/2024 10:23 AM PROPERTY PORTFOLIO OFFICER) Anatomical Region Laterality Modality Hip Radiographic Junie ging 09/15/2024 10:5 0 AM PROPERTY PORTFOLIO OFFICER Impressions 09/15/2024 10:52 AM PROPERTY PORTFOLIO OFFICER IMPRESSION: No acute bony abnormality about the right hip. Suspected labral calcification and acetabular osteophyte. Ordered By: ISABELL TARIQ Interpreted By: Dillon Whipple MD, 09/15/2024 10:50 AM Narrative 09/15/2024 10:52 AM PROPERTY PORTFOLIO OFFICER [address] [place] [address] Procedure(s): XR HIP RT 2V Date of service: 09/15/2024 10:17 AM Provided clinical information: 34 years, Female, r hip pain C/O RIGHT LAT HIP FRANCIE X COUPLE MONTHS. NKI. Procedure and materials: AP and frog-leg view right hip. Comparison studies: None. Findings: Calcific patient is present about the right acetabulum. This may relate to labral calcification. Minimal acetabular osteophyte is present on the right. No fracture, dislocation or acute bony abnormality about the right hip. No erosive change about the femoral head. Procedure Note Dillon Whipple MD - 09/15/[address] [place] [address] Procedure(s): XR HIP RT 2V Date of service: 09/15/2024 10:17 AM Provided clinical information: 34 years, Female, r hip pain C/O RIGHTLAT HIP FRANCIE X COUPLE MONTHS. NKI. Procedure and materials: AP and frog-leg view right hip. Comparison studies: None. Findings: Calcific patient is present about the right acetabulum. This may relate tolabral calcification. Minimal acetabular osteophyte is present on theright. No fracture, dislocation or acute bony abnormality about the right hip. Noerosive change about the femoral head. IMPRESSION: No acute bony abnormality about the right hip. Suspected labral calcification and acetabular osteophyte. Ordered By: ISABELL TARIQ Interpreted By: Dillon Whipple MD, 09/15/2024 10:50 AM us Isabell Tariq B[facility] REPAIR[facility] Final Resul t from Last 3 Months Insurance [address] [place] [address] Care Teams Insurance Consultant Relationship Specialty Start Date End Date Danica Blair MD [address] [place] [id number] PCP - General FAMILY PRACTICE 11/22/20
--- OUTSIDE RECORDS SUMMARY | 2024-10-03 15:52 | XMS_ITS | Patient Health Summary ---
Author Organization [facility] Address [address] [place] [address] Care Team Providers Care Academic Department Chair Name Role Phone Unavailable Primary Care Provider Unavailabl e Note from [facility],non-owned Affiliates and Associated Physician Practices is amultiple site organization consisting of ambulatory clinics and hospital sitesin [place], [place], [place] and [place]. This disclosure is being madepursuant to the Care Everywhere program and may not contain all information available regarding this patient. Last updated 18.[facility] Social History Tobacco Use Types Packs/Day Years Used Date Smoking Tobacco: Never Assessed Sex and Gender Information Value Date Recorded Sex Assigned at Not on file Gender Identity Not on file Sexual Orientation Not on file
--- OUTSIDE RECORDS SUMMARY | 2024-10-03 15:52 | XMS_ITS | Clinical Summary ---
Author Organization [facility] [address] [facility] Address [address] [place] [address] Care Team Providers Care Mortgage Analyst Name Role Phone Danica Blair MD Primary Care Provider [phone] Allergies Active Allergy Reactions Criticality Noted Date Comments Amoxicillin-Pot Clavulanate Nausea & Vomiting Low 05/03/2022 Metronidazole Other (See comments) Low 05/03/2022 Red face and disoriented Nalbuphine Other (See comments) Low 05/03/2022 Forgot to breath Medications ISSAC Sigala, Pen 40 mg/0.4 mL pen injector kitIndications:H [...] phone. Assessment & Plan (09/25/2022 10:06 PM DIRECTOR OF PUBLIC SAFETY): Discussed that significant health benefits/risk reduction may [...] Other: Assessment & Plan (09/25/2022 10:10 PM DIRECTOR OF PUBLIC SAFETY): Obesity is unchanged.. Plan: General weight loss/lifestyle [...] liraglutide. Assessment & Plan (09/25/2022 10:08 PM DIRECTOR OF PUBLIC SAFETY): Labs. Reviewed available prior labs in chart and Care Everywhere. Continue metformin. Good candidate for tirzepatide or GLP-1 RA. NAFLD (nonalcoholic fatty liver disease) 022 Assessment & Plan (09/25/2022 10:08 PM DIRECTOR OF PUBLIC SAFETY): Discussed association with insulin resistance. Discussed potential for improvement and/or reduced progression with weight loss. Resolved Problems Problem Noted Date Diagnosed Date Resolved Date Obesity (BMI 30-39.9) 10/20/20232023 BMI 38.0-38.9,adult 05/03/2022 11/23/19 24 Encounters Date Type Department Care Team Description 08/12/2024 11:00 AM DIRECTOR OF PUBLIC SAFETY Office Visit [facility] Minimally Invasive Surgery [facility] Medical Office Building [address] [place] [address] Agapito Steven MD Morbid obesity (HCC) (Primary Dx) from Last 3 Months Surgical History Surgery Date Site/Laterality Comments DILATION AND CURETTAGE OF UTERUS ARM SURGERY SKIN GRAFT TUBAL LIGATION Medical History Medical History Date Comments Anxiety 2008 Bipolar disorder (HCC) 2009 Depression 2010 Type 2 diabetes mellitus (HCC) 2007 Fractures 2006 Liver disease 2020 Obesity 2018 Thyroid disease 2014 Vitamin D deficiency 2018 Diabetes mellitus (HCC) 2008 Substance abuse (HCC) 2012 Family History Medical History Relation Name Comments Anesthesia problems Neg Hx Social History Tobacco Use Types Packs/Day Years [...] on file Legal Sex Female 11:49 AM DIRECTOR OF PUBLIC SAFETY Gender Identity Not on file Sexual Orientation Not on file Obstetrics History Last Filed Vital Signs Vital Sign Reading Time Taken Comments Blood Pressure 110/79 08/12/2024 10:47 AM DIRECTOR OF PUBLIC SAFETY Pulse 81 08/12/2024 10:47 AM DIRECTOR OF PUBLIC SAFETY Temperature 36.7 C (98.1 F) 06/24/2024 10:29 AM DIRECTOR OF PUBLIC SAFETY Respiratory Rate 16 05/11/2024 11:53 AM CDT Oxygen Saturation 97% 08/12/2024 10:47 AM DIRECTOR OF PUBLIC SAFETY Inhaled Oxygen Concentration - - Weight 86 kg (189 lb 9.6 oz) 08/12/2024 10:47 AM DIRECTOR OF PUBLIC SAFETY Height 160 cm (5' 3 ) 08/12/2024 10:47 AM DIRECTOR OF PUBLIC SAFETY Body Mass Index 33.59 08/12/2024 10:47 AM DIRECTOR OF PUBLIC SAFETY Plan of Treatment Health Maintenance Due Date Last Done Comments Albumin Creatinine Ratio, Urine 1991 Cervical Cancer Screening 1991 Depression Screening 1991 Dilated Eye Exam 1991 Foot Exam 1991 DTaP/Tdap/Td Vaccine (1 - Tdap) 2002 Varicella Vaccines (1 of 2 - 13+ 2-dose series) 2004 Regular Well Visit/Exam 18-64 2009 Pneumococcal vaccine <65 (1 of 2 - PCV) 2010 Covid-19 Vaccine (2 - 2023- season) 2024 10/06/2020 Influenza Vaccine (#1) 2024 Lipid Panel 08/29/2024 08/29/2023, 05/03/2022 Hemoglobin A1C 11/03/2024 05/05/2024, 05/0 09/2023, 05/03/2022 eGFR 05/10/2025 05/10/2024, 04/20, 11/21/2023, Additional history exists Hepatitis B Screening Completed 05/03/2022 Hepatitis C Screening Completed 11/21/2023, 022 HPV Vaccines Aged Out No longer eligi [...] MD LAB BLOOD ORDERABLES Final Resul t Performing Organization Address City/[facility] Co de Phone Number MORGAN [facility]ARECH [address] [facility] [place] [address] * POCT hemoglobin A1c (05/05/2024 4:54 PM CDT) Pathologist [facility] Hgb A1C, POC 5.5 4.0 - 5.6 % Est Average Gluc POC 111 mg/dL [facility]ARE Comment: The ADA recommends reporting an estimated Average Glucose (eAG) with all Hemoglobin A1c results using the equation derived from a study of 507 normal and diabetic adults. Minority populations were underrepresented and children were not included. (Diabetes Care 31:0069-6719, 2008). The eAG is not equivalent to a fasting glucose. Blood 05/05/2024 4:54 PM CDT 05/05/2024 4:54 PM CDT us Agapito Steven MD POINT OF CARE TEST ORDERABLES Fi nal Result Performing Organization Address City/[facility]/ZIP Co de Phone Number MORGAN WARE [facility] [place] [address] * Hepatitis C antibody Blood (11/21/2023 10:08 AM CDT) Pathologist [facility] Hep C Ab Nonreactive Nonreactive Comment:Antibodies to HCV no t detected. Does NOT exclude the possibility of recent exposure to HCV. Current interpretive data was last revised on 22 Blood 11/21/2023 10:0 8 AM CDT 11/21/2023 11:58 AM CDT us Sherif Keys MD LAB MICROBIOLOGY - GENER AL ORDERABLES Final Result [facility] [place] [address] * (ABNORMAL) Lipid panel (05/03/2022 9:26 AM CDT) Cholesterol 224(H) 30 - 199 mg/dL [facility] Comment: Interpretive Data Ages < or = [...] revised on 2018. Triglycerides 183(H) <=149 mg/dL [facility] Comment: Interpretive Data Ages < or = [...] on 2018. HDL 32(L) >=40 mg/dL [facility] Comment: Interpretive Data Ages < or = [...] on 2018. LDL, calculated 155(H) <=129 mg/dL [facility] Comment: Interpretive Data Ages < or = [...] revised on 2018. Non-HDL Cholesterol 192 mg/dL [facility] Comment: Interpretive Data Ages < or = [...] last revised on 2018. Chol/HDL ratio 7 [facility] Blood 05/03/2022 9:26 AM CDT 05/03/2022 11:30 AM CDT us Sherif Keys MD LAB BLOOD ORDERABLES Fin al Result [facility] [place] [address] from Last 3 Months or Most Recently Relevant to Health Maintenance Insurance Advance Directives For more information, please contact: [phone] * Full Code (Latest Code Status on File) Date Activated Date Inactivated Comments 05/10/2024 12:21 PM 05/11/2024 7:25 PM * Full Code Date Activated Date Inactivated Comments 12/29/2023 8:43 AM 12/29/2023 4:18 PM Care Teams Mortgage Analyst Relationship Specialty Start Date End Date Danica Blair MD [address] [place] [address] PCP - General Family Medicine 06/18/21
--- OUTSIDE RECORDS SUMMARY | 2024-10-03 15:52 | XMS_ITS | Encounter Summary ---
Author Organization [facility] Address [address] [place] [address] Care Team Providers Care Pig Lead Melter Helper Name Role Phone Danica Blair MD Primary Care Provider [phone] Encounter Details Date Type Department Care Team (Late st Contact Info) Description 12/26/2018 Abstract SFL CONVERSION [address] [place] [id number] , Generic ConversionMD Social History Tobacco Use Types Packs/Day Years Used Date Smoking Tobacco: Never Assessed Comments Unknown Sex and Gender Information Value Date Recorded Sex Assigned at Not on file Legal Sex Female 5:55 PM ACOUSTICS TEACHER Gender Identity Not on file Sexual Orientation Not on file documented as of this encounter Plan of Treatment Not on file documented as of this encounter Visit Diagnoses Not on filedocumented in this encounter Additional Health Concerns Infection Onset Date Last Indicated Resolved Time COVID-19 Rule Out 07/03/2022 07/03/2022 07/03/2022 10:57 PM ACOUSTICS TEACHER COVID-19 Rule Out 06/30/2024 06/30/2024 06/30/2024 10:24 AM ACOUSTICS TEACHER documented as of this encounter Care Teams Pig Lead Melter Helper Relationship Specialty Start Date End Date Danica Blair MD [address] [place] [id number] PCP - General FAMILY PRACTICE 11/22/20 documented as of this encounter
[2024-10-03 15:57] LABS: Basophils Absolute Auto 0.04 K/mm3 (0.00-0.10); Basophils Percent Auto 0.4 % (0.0-1.0); Eosinophils Absolute Auto 0.08 K/mm3 (0.02-0.50); Eosinophils Percent Auto 0.8 % (1.0-6.0); Hematocrit 44.6 % (35.0-49.0); Hemoglobin 14.9 g/dL (12.0-15.0); Immature Granulocyte Absolute 0.03 K/mm3 (0.00-0.00); Immature Granulocyte Percent A 0.3 % (0.0-0.0); Lymphocytes Absolute Auto 3.56 K/mm3 (1.10-4.50); Lymphocytes Percent Auto 36.4 % (18.0-42.0); Mean Corpuscular HGB Conc 33.4 g/dL (32-36); Mean Corpuscular Hemoglobin 29.7 pg (27.0-31.0); Mean Platelet Volume 9.4 fl (9.2-11.8); Monocytes Absolute Auto 0.52 K/mm3 (0.10-0.90); Monocytes Percent Auto 5.3 % (2.0-11.0); Neutrophils Absolute Auto 5.55 K/mm3 (1.70-7.20); Neutrophils Percent Auto 56.8 % (50.0-70.0); Platelet Count Result 339 K/mm3 (150-420); Red Blood Count 5.01 M/mm3 (4.20-5.40); Red Cell Distribution Width 13.2 % (11.6-14.4); White Blood Count 9.8 K/mm3 (4.8-10.8)
[2024-10-03 15:59] LABS: Add Urine Microscopic? YES; Bilirubin Urine 2+ (Negative); Blood Urine Negative (Negative); Color Urine Yellow (Yellow); Glucose Urine UA Negative (Negative); Ketones Urine 1+ (Negative); Leukocyte Esterase Ur Negative LEU/UL (Negative); Nitrate Urine Positive (Negative); Protein Urine Trace (Negative); Specific Grav Ur >= 1.030 (1.010-1.020)
[2024-10-03 16:08] LABS: Amorphous Sediment Urine Moderate; Appearance Urine Cloudy (Clear); Bacteria Urine 3+ /hpf; Calcium Oxalate Crystals Urine Present /hpf; Mucus Urine Heavy /lpf; Squamous Epithelial Cell Urine Many /hpf (Few)
[2024-10-03 16:09] LABS: Pregnancy On Board Control Positive; Urine Pregnancy Test Negative
[2024-10-03 16:11] LABS: Alanine Aminotransferase 18 U/L (14-59); Albumin Level 3.9 g/dL (3.4-5.0); Alkaline Phosphatase 104 U/L (46-116); Anion Gap 8 mmol/L (4-12); Aspartate Amino Transferase 17 U/L (15-37); Bilirubin,Total 0.5 mg/dL (0.00-1.00); Blood Urea Nitrogen 8 mg/dL (7-18); CRP 0.6 mg/dL (0.0-0.9); Calcium 8.9 mg/dL (8.5-10.1); Carbon Dioxide 27 mmol/L (21-32); Chloride 100 mmol/L (98-108); Estimated CRCL calculation 85 ml/min; Estimated Glomerular Filt Rate > 60; Glucose 76 mg/dL (70-99); Lipase 15 U/L (16-77); Osmolality Calculated 277 mOsm/kg (285-295); Potassium 3.3 mmol/L (3.5-5.1); Sodium 135 mmol/L (136-145); Total Protein 7.6 g/dL (6.4-8.2)
[2024-10-03] MEDS: SODIUM CHLORIDE 0.9% IV 1,000 ML 999 ML IV CONT (16:27)
[2024-10-03 17:14] VITALS: BP 103/74; PULSE 60; RESP 20; TEMP 36.6; O2SAT 100
== END 2024-10-03 17:15 | disposition home or self-care (01) ==
PROVIDERS: Emergency Provider Family Medicine; PCP Family Medicine
DX: N39.0 Urinary tract infection, site not specified (principal); E11.9 Type 2 diabetes mellitus without complications
CPT/HCPCS: 36415; 80053; 81001; 81025; 83605; 83690; 85025; 86140; 96361; 96365; 96372; 99284; J0500; J0696; J7030; J7120

== ENCOUNTER 2024-10-07 10:58 | Emergency (ER) | payer OTHER, SELFPAY ==
[2024-10-07 10:59] VITALS: BP 106/76; PULSE 93; RESP 18; TEMP 36.6; O2SAT 96
--- NOTE | 2024-10-07 11:09 | ED_ITS ---
HPI - Dizziness General Chief Complaint: Dizziness Stated Complaint: dizzy Time Seen by Provider: 10/07/24 11:06 Source: patient Mode of arrival: ambulatory Limitations: no limitations History of Present Illness HPI Narrative: This is a 34-year-old female with recent history of bariatric surgery and has been having a burning sensation to her epigastric area, with some dizziness and feeling nauseated recently saw her bariatric surgeon and was given Carafate. Otherwise patient with no fever chills no shortness of breath no chest pain. MD elicited complaint: dizziness Onset (ago): week(s) Timing: gradual onset Severity: moderate Related Data Home Medications ?Medication ?Instructions ?Recorded ?Confirmed ?Last Taken ?Type adalimumab 40 mg/0.4 mL 40 mg subcut 04/22/23 Unknown History subcutaneous pen kit (Humira(CF) Pen) ergocalciferol (vitamin D2) 1,250 1,250 mcg 04/22/23 Unknown History mcg (50,000 unit) capsule famotidine 40 mg tablet 40 mg 04/22/23 Unknown History ketoconazole 2 % shampoo topical 04/22/23 Unknown History liraglutide 0.6 mg/0.1 mL (18 mg/3 mg subcut 04/22/23 Unknown History mL) subcutaneous pen injector (Victoza 3-Anuj) metformin 500 mg tablet 500 mg 04/22/23 Unknown History oxcarbazepine 300 mg tablet mg 04/22/23 Unknown History (Trileptal) pen needle, diabetic 32 gauge x 04/22/23 04/22/23 Unknown History (TRUEplus Pen Needle) spironolactone 100 mg tablet 100 mg 04/22/23 Unknown History topiramate 50 mg tablet mg 04/22/23 Unknown History Allergies Allergy/AdvReac Type Severity Reaction Status Date / Time amoxicillin (From Augmentin) Allergy Other Verified 06/29/24 17:47 clavulanic acid (From Allergy Other Verified 06/29/24 17:47 Augmentin) metronidazole Allergy Other Verified 06/29/24 17:47 nalbuphine (From Nubain) Allergy Other Verified 06/29/24 17:47 Review of Systems Review of Systems: All systems reviewed & are unremarkable except as noted in HPI and below PMFSH Past Medical History Medical History Type 2 diabetes mellitus History of PCOS Migraines Exam Const: General: healthy appearing, no acute distress and alert Nutritional Appearance: well nourished Orientation/consciousness: patient oriented x3 Limitations: no limitations HENMT: Head: normal to inspection Eyes: Conjunctivae: conjunctivae normal Pupils: Equal, round and reactive pupils present Neck: Neck: normal visual inspection Chest: Chest palpation & inspection: normal inspection of the chest Resp: Effort & Inspection: normal respiratory effort Auscultation: clear to auscultation bilaterally Cardio: Rate: regular rate Rhythm: regular rhythm GI: Auscultation: normal bowel sounds Skin: General skin exam: normal color Rashes: no rashes Neuro: General: patient oriented x3 and moves all extremities Course Course Emergency Course: Patient had EKG performed which shows normal sinus rhythm blood work performed which shows no acute abnormalities patient received IV fluids along with IV Protonix and IV Zofran, after reassessment patient is feeling much better and patient tolerated fluids p.o.. After speaking with her barium surgeon at [facility] feel comfortable sending the patient home with a follow-up for EGD. Vital Signs Vital signs: Vital Signs Temperature 36.6 C 10/07/24 10:59 Pulse Rate 93 10/07/24 10:59 Respiratory Rate 18 10/07/24 10:59 Blood Pressure 106/76 10/07/24 10:59 Pulse Oximetry 96 10/07/24 10:59 Oxygen Delivery Room Air 10/07/24 10:59 Temperature 36.6 C 10/07/24 10:59 Pulse Rate 93 10/07/24 10:59 Respiratory Rate 18 10/07/24 10:59 Blood Pressure 106/76 10/07/24 10:59 Pulse Oximetry 96 10/07/24 10:59 Oxygen Delivery Room Air 10/07/24 10:59 Critical Care Time Critical Care Time Critical Care Time: No Discharge Plan Discharge Clinical Impression: Gastric ulcer Qualifiers: Gastric ulcer chronicity: acute Gastric ulcer complication status: without hemorrhage or perforation Qualified Code(s): K25.3 - Acute gastric ulcer without hemorrhage or perforation Patient Disposition: Home, Self-Care Condition: Stable Instructions: Antibiotic Form, Peptic Ulcer (ED), Diet for Stomach Ulcers and Gastritis (ED) Additional Instructions: advised take medication as prescribed and follow-up with primary care physician / bariatric surgeon for further evaluation and EGD. Patient can discontinue famotidine and start Protonix and take twice daily until follow-up with her bariatric surgeon. Patient Language: Occitan Prescriptions: New pantoprazole [Protonix] 40 mg tablet,delayed release (DR/EC) 40 mg PO QAM 28 Days Qty: 28 0RF ondansetron 4 mg tablet,disintegrating 4 mg PO Q6H PRN (Reason: nausea and vomiting) Qty: 14 0RF No Action metformin 500 mg tablet 500 mg ketoconazole 2 % shampoo TOPICAL famotidine 40 mg tablet 40 mg spironolactone 100 mg tablet 100 mg oxcarbazepine [Trileptal] 300 mg tablet ergocalciferol (vitamin D2) 1,250 mcg (50,000 unit) capsule 1,250 mcg topiramate 50 mg tablet Victoza 3-Anuj 0.6 mg/0.1 mL (18 mg/3 mL) pen injector SUBCUT (DME) pen needle, diabetic [TRUEplus Pen Needle] 32 gauge x 5/32 needle MISCELLANEOUS Humira(CF) Pen 40 mg/0.4 mL pen injector kit 40 mg SUBCUT sulfamethoxazole-trimethoprim [Bactrim DS] 800-160 mg tablet 1 tablet PO Q12H Qty: 10 0RF Follow-up/Referrals: Danica Blair MD [Primary Care Provider] - Time of Disposition: 12:25
--- NOTE | 2024-10-07 11:10 | ECG_ITS ---
Test Date: 2024-10-07 11:18:38 Measurements Intervals [place] Rate: 79 P: 51 [place]: 133 QRS: 56 QRSD: 110 T: 46 QT: 383 QTc: 441 Interpretive Statements SINUS RHYTHM LOW QRS VOLTAGE IN PRECORDIAL LEADS [QRS DEFLECTION < 1.0 mV IN CHEST LEADS] RSR' IN V1 OR V2, PROBABLY NORMAL VARIANT No previous ECG available for comparison Electronically Signed On 10-07-2024 12:12:38 CDT by Nicanor Werner M.D.
--- NOTE | 2024-10-07 11:17 | PC.NURSE ---
Covid culture sent to lab
--- NOTE | 2024-10-07 11:18 | PC.NURSE ---
glucose 86 @ 11:12
[2024-10-07] MEDS: SODIUM CHLORIDE 0.9% IV 1,000 ML 999 ML IV CONT (11:22)
[2024-10-07] MEDS: PANTOPRAZOLE SODIUM IV 40 MG VIAL IV PUSH (11:23)
[2024-10-07] MEDS: ONDANSETRON INJ 4 MG/2 ML VIAL IV PUSH (11:23)
[2024-10-07 11:24] LABS: Basophils Absolute Auto 0.03 K/mm3 (0.00-0.10); Basophils Percent Auto 0.2 % (0.0-1.0); Eosinophils Absolute Auto 0.07 K/mm3 (0.02-0.50); Eosinophils Percent Auto 0.6 % (1.0-6.0); Hematocrit 44.6 % (35.0-49.0); Hemoglobin 14.8 g/dL (12.0-15.0); Immature Granulocyte Absolute 0.04 K/mm3 (0.00-0.00); Immature Granulocyte Percent A 0.3 % (0.0-0.0); Lymphocytes Absolute Auto 1.51 K/mm3 (1.10-4.50); Lymphocytes Percent Auto 12.4 % (18.0-42.0); Mean Corpuscular HGB Conc 33.2 g/dL (32-36); Mean Corpuscular Hemoglobin 29.8 pg (27.0-31.0); Mean Corpuscular Volume 89.7 fL (78.0-102.0); Mean Platelet Volume 9.3 fl (9.2-11.8); Monocytes Absolute Auto 0.62 K/mm3 (0.10-0.90); Monocytes Percent Auto 5.1 % (2.0-11.0); Neutrophils Absolute Auto 9.95 K/mm3 (1.70-7.20); Neutrophils Percent Auto 81.4 % (50.0-70.0); Platelet Count Result 271 K/mm3 (150-420); Red Blood Count 4.97 M/mm3 (4.20-5.40); Red Cell Distribution Width 13.3 % (11.6-14.4); White Blood Count 12.2 K/mm3 (4.8-10.8)
[2024-10-07 11:42] LABS: Alanine Aminotransferase 12 U/L (14-59); Albumin Level 3.6 g/dL (3.4-5.0); Alkaline Phosphatase 103 U/L (46-116); Anion Gap 13 mmol/L (4-12); Aspartate Amino Transferase 14 U/L (15-37); Bilirubin,Total 0.6 mg/dL (0.00-1.00); Blood Urea Nitrogen 9 mg/dL (7-18); Carbon Dioxide 23 mmol/L (21-32); Chloride 104 mmol/L (98-108); Estimated CRCL calculation 95 ml/min; Estimated Glomerular Filt Rate > 60; Glucose 91 mg/dL (70-99); Osmolality Calculated 288 mOsm/kg (285-295); Potassium 3.8 mmol/L (3.5-5.1); Sodium 140 mmol/L (136-145); Total Protein 7.2 g/dL (6.4-8.2)
[2024-10-07 11:45] LABS: Lactic Acid Reflex 0.8 mmol/L (0.4-2.0)
--- OUTSIDE RECORDS SUMMARY | 2024-10-07 11:54 | XMS_ITS | Encounter Summary ---
Author Organization [facility] Address [address] Luise [facility] [address] [place] [address] Phone Care Team Providers Care Internet And E Business Project Manager Name Role Phone Danica Blair MD Primary Care Provider Encounter Details Date Type Department Care Team (Late st Contact Info) Description 10/06/2024 Orders Only [facility] Minimally Invasive Surgery [facility] Medical Office Building [address] [place] [address] Agapito Steven MD [address] [facility] [id number] [place], [place] [id number] Social History Tobacco Use Types Packs/Day Years Used Date Smoking Tobacco: Former Cigarettes 0.5 24 0 08/1999 - 08/2023 Vaping Passive Smoke Exposure: Past Smokeless Tobacco: Never AUDIT-C Answer Date Recorded Q1: How often [...] on file 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 Gender Identity Not on file Sexual Orientation Not on file documented as of this encounter Ordered Prescriptions Prescription Sig Dispense Quantity Refills Last Filled Start Date End Date sucralfate (CARAFATE) 1 gram tablet Take 1 tablet (1 g total) by mouth 4 (four) times a day 120 tablet 10/06/2024 10/06/2025 documented in this encounter Plan of Treatment Not on file documented as of this encounter Visit Diagnoses Not on filedocumented in this encounter Care Teams Internet And E Business Project Manager Relationship Specialty [place] [address] [place] [address] [place] [address] PCP - General Family Medicine 06/18/21 documented as of this encounter
--- OUTSIDE RECORDS SUMMARY | 2024-10-07 11:54 | XMS_ITS | Encounter Summary ---
Author Organization [facility] Address [address] [facility] [address] [place] [address] Phone Care Team Providers Care Packaging Line Attendant Name Role Phone Danica Blair MD Primary Care Provider Reason for Visit * Reason Onset Date Comments Medical Question/Miscellaneous 10/04/2024 Encounter Details Date Type Department Care Team (Late st Contact Info) Description 10/04/2024 Telephone [facility] ([facility]) - [facility] Minimally Invasive Surgery [address] [facility] Advanced Medicine [address]th Floor, [place] [address] Agapito Steven MD [address] [facility] [id number] [place] [address] Medical Question/Miscellaneous Social History Tobacco Use Types Packs/Day Years [...] on file Legal Sex Female 11:49 AM 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 Steven Medical/Surgical Information: per Dr. Steven- pt to start carafate 1 gram QID for 4 weeks, GI cocktailif able to order outpatient, f/u apt in 2 weeks to determine need for EGD Outcome/Plan: Left message informing pt of above. Mychart message also sent. * Telephone Encounter - Janelle Salazar RN - 10/04/2024 3:02 PM CDT Date: 10/04/2024 Provider: Dr. Steven Medical/Surgical Information: Dr. Steven spoke w/pt this morning and advised to come to ED if unable to tolerate fluids throughout the day. Spoke w/pt this afternoon in follow up. She reports feeling better after resting today. Has only had 16 oz so far due to sleeping. Outcome/Plan: Updated Dr. Steven. No further recommendations at this time. * Telephone Encounter - Janelle Salazar RN - 10/04/2024 9:44 AM CDT Date: 10/04/2024 Please transfer to: Liliana Salazar Reason: MISTeleReason: Follow up Provider: Dr. Steven Medical/Surgical Information: s/p RYGB 05/10/24. C/o constant abdominal cramping x 4 days, worsenedwhen eating or drinking. No identifiable trigger. Taking small sips. Had 1/2 piece or garlic toast and porkchop yesterday w/difficulty tolerating liquids- presented to OSH ED, +UA- treated w/IVF and abx. Has not had oral intake today. Reports smoking cigarettes occasionally, as recently as the other day. No NSAID use. Pt unsure if taking Actigall, but reports taking omeprazole for reflux. Outcome/Plan: Advised pt to do liquid diet for next 48 hours. If unable to tolerate liquids, reportto [facility] ED. Asked pt to reach out to office Friday with update on symptoms. Pt verbalized understanding. * Telephone Encounter - Kevin Espinoza - 10/04/2024 8:50 AM CDT Patient Query: Was an attempt to transfer to the assigned clinical staff or backline? Yes, No answer Reason for call?: Patient returning Liliana's call (Read message back to caller and ask them if there is anything else they'd like to add to the message) Who is the caller: Yancy What is the best number for them to contact for a call back: [phone] documented in this encounter Plan of Treatment Not on file documented as of this encounter Visit Diagnoses Not on filedocumented in this encounter Care Teams Packaging Line Attendant Relationship Specialty Start Date End Date Danica Blair MD [address] [facility] [place] [address] PCP - General Family Medicine 06/18/21 documented as of this encounter
--- OUTSIDE RECORDS SUMMARY | 2024-10-07 11:54 | XMS_ITS | Clinical Summary ---
Author Organization [facility] Address [address] [place] [address] Care Team Providers Care Dermatology Specialist Name Role Phone Danica Blair MD Primary Care Provider [phone] Allergies Active Allergy Reactions Criticality Noted Date Comments Amoxicillin-Pot Clavulanate Unknown,Nausea and Vomiting Low 11/24/2020 Metronidazole Unknown,Other (see comment) Low 11/24/2020 Red face and disoriented Nalbuphine Unknown,Other (see comment) Low 11/24/2020 breathing Medications vitamin D2, ergocalciferol, [address] UNITS capsule 1 (one) Capsule weekly x [...] Department Care Team Description 09/15/2024 10:06 AM GANG MOWER OPERATOR - 09/15/2024 11:59 PM GANG MOWER OPERATOR Hospital Encounter [facility] [address] [facility] [place] [address] Isabell Tariq NP Discharge Disposition: Home [...] on file Legal Sex Female 5:55 PM GANG MOWER OPERATOR Gender Identity Not on file Sexual Orientation Not on file Last Filed Vital Signs Vital Sign Reading Time Taken Comments Blood Pressure 104/70 06/30/2024 10:45 AM GANG MOWER OPERATOR Pulse 85 06/30/2024 10:45 AM GANG MOWER OPERATOR Temperature 36.3 C (97.3 F) 06/30/2024 9:11 AM GANG MOWER OPERATOR Respiratory Rate 18 06/30/2024 10:45 AM GANG MOWER OPERATOR Oxygen Saturation 97% 06/30/2024 10:45 AM GANG MOWER OPERATOR Inhaled Oxygen Concentration - - Weight 93.2 kg (205 lb 6.4 oz) 06/30/2024 9:11 A M GANG MOWER OPERATOR Height 160 cm (5' 3 ) 06/30/2024 9:11 AM GANG MOWER OPERATOR Body Mass Index 36.38 06/30/2024 9:11 AM GANG MOWER OPERATOR Plan of Treatment Health Maintenance Due Date [...] HIP RT 2V Routine 09/15/2024 10:23 AM GANG MOWER OPERATOR Right hip pain from Last 3 Months Results * XR HIP RT 2V (09/15/2024 10:23 AM GANG MOWER OPERATOR) Anatomical Region Laterality Modality Hip Radiographic Junie ging 09/15/2024 10:5 0 AM GANG MOWER OPERATOR Impressions 09/15/2024 10:52 AM GANG MOWER OPERATOR IMPRESSION: No acute bony abnormality about the right hip. Suspected labral calcification and acetabular osteophyte. Ordered By: ISABELL TARIQ Interpreted By: Dillon Whipple MD, 09/15/2024 10:50 AM Narrative 09/15/2024 10:52 AM GANG MOWER OPERATOR [address] [place] [address] Procedure(s): XR HIP RT 2V Date of [...] Procedure Note Dillon Whipple MD - 09/15/[address] [place] [address] Procedure(s): XR HIP RT 2V Date of [...] MD, 09/15/2024 10:50 AM us Isabell Tariq BIOMASS FACILITATOR GENERAL IMAGING Final Resul t from Last 3 Months Insurance [address] [place] [address] Care Teams Dermatology Specialist Relationship Specialty Start Date End Date Danica Blair MD [address] [place] [address] PCP - General FAMILY PRACTICE 11/22/20
--- OUTSIDE RECORDS SUMMARY | 2024-10-07 11:54 | XMS_ITS | Encounter Summary ---
Author Organization [facility] Address [address] [facility] [address] [place] [address] Phone Care Team Providers Care Gopherman Name Role Phone Danica Blair MD Primary Care Provider Encounter Details Date Type Department Care Team (Late st Contact Info) Description 10/06/2024 Orders Only [facility] Minimally Invasive Surgery [facility] Medical Office Building [address] [place] [address] Agapito Steven MD [address] [facility] [id number] [place], [place] [id number] Social History Tobacco Use Types Packs/Day Years [...] on file Legal Sex Female 11:49 AM 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 OPERATOR Gender Identity Not on file Sexual Orientation Not on file documented as of this encounter Ordered Prescriptions Prescription Sig Dispense Quantity Refills Last Filled Start Date End Date al & mag hydroxide simethicone-lidoca ine (GI COCKTAIL WITHOUT ANTISPASMODIC) suspensionIndicati ons:esophageal spasm Take 5 mL by mouth 3 (three) times a day as needed (for gastric ulcer) 200 mL 10/06/2024 5 documented in this encounter Plan of Treatment Not on file documented as of this encounter Visit Diagnoses Not on filedocumented in this encounter Care Teams Gopherman Relationship Specialty Start Date End Date Danica Blair MD [address] [place] [address] PCP - General Family Medicine 06/18/21 documented as of this encounter
--- OUTSIDE RECORDS SUMMARY | 2024-10-07 11:54 | XMS_ITS | Clinical Summary ---
Author Organization [facility] Address [address] [place] [address] Care Team Providers Care Director Business Intelligence Name Role Phone Unavailable Primary Care Provider Unavailabl e Source Comments [facility],non-owned Affiliates and Associated Physician Practices is amultiple site organization consisting of ambulatory clinics and hospital sitesin [place], [place], [place] and [place]. This disclosure is being madepursuant to the Care Everywhere program and may not contain all information available regarding this patient. Last updated 18.[facility] [employer] Social History Tobacco Use Types Packs/Day Years [...]
--- OUTSIDE RECORDS SUMMARY | 2024-10-07 11:54 | XMS_ITS | Encounter Summary ---
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
--- OUTSIDE RECORDS SUMMARY | 2024-10-07 11:54 | XMS_ITS | Encounter Summary ---
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 Steven Medical/Surgical Information: s/p RYGB 04/2024. Has had abdominal pain this week and difficult PO intake. Dr. Steven suspects ulcer d/t recent smoking. Pt sent [employer] message this morning informing us she was going to [facility] ED d/t dizziness. Dr. Steven suspects dehydration. Outcome/Plan: Dr. Steven spoke w/[place] ED Attending and offered transfer to [facility]. Plan for immediatefluid resuscitation at local ED at this time and treatment with PPI. documented in this encounter Plan of Treatment Not on file documented as of this encounter Visit Diagnoses Not on filedocumented in this encounter Care Teams Lumber Racker Relationship Specialty Start Date End Date Danica Blair MD [address] [place] [address] PCP - General Family Medicine 06/18/21 documented as of this encounter
--- OUTSIDE RECORDS SUMMARY | 2024-10-07 11:54 | XMS_ITS | Clinical Summary ---
Author Organization [facility] [address] Address [address] [place] [address] Care Team Providers Care Oil Field Rig Builder Name Role Phone Danica Blair MD Primary [...] daily Indications: type 2 diabetes mellitus Active sucralfate (CARAFATE) 1 gram tablet Take 1 tablet (1 g total) by mouth 4 (four) times a day 120 tablet 5 10/07/19 26 Active al & mag hydroxide simethicone-lido acacia (GI COCKTAIL WITHOUT ANTISPASMODIC) suspensionIndica tions:esophageal spasm Take 5 mL by mouth 3 (three) times a day as needed (for gastric ulcer) 200 mL 5 11/06/19 25 Active Active Problems Problem Noted Date Diagnosed [...] phone. Assessment & Plan (09/25/2022 10:06 PM COVER MARKER): Discussed that significant health benefits/risk reduction may [...] Other: Assessment & Plan (09/25/2022 10:10 PM COVER MARKER): Obesity is unchanged.. Plan: General weight loss/lifestyle [...] liraglutide. Assessment & Plan (09/25/2022 10:08 PM COVER MARKER): Labs. Reviewed available prior labs in chart and Care Everywhere. Continue metformin. Good candidate for tirzepatide or GLP-1 RA. NAFLD (nonalcoholic fatty liver disease) 022 Assessment & Plan (09/25/2022 10:08 PM COVER MARKER): Discussed association with insulin resistance. Discussed potential for improvement and/or reduced progression with weight loss. Resolved Problems Problem Noted Date Diagnosed Date Resolved Date Obesity (BMI 30-39.9) 10/20/20232023 BMI 38.0-38.9,adult 05/03/2022 11/23/19 24 Encounters Date Type Department Care Team Description 10/07/2024 Telephone [facility] Minimally Invasive Surgery [address] [facility] Medical Office Building [address] [place] [address] Janelle Salazar RN 10/06/2024 Telephone [facility] Minimally Invasive Surgery [address] [facility] 12th Floor, [place] [address] Matthew Berumen NP Medical Question/Miscellaneou s 10/06/2024 Orders Only [facility] Minimally Invasive Surgery [address] [facility] Medical Office Building [address] [place] [address] Agapito Steven MD 10/06/2024 Orders Only [facility] Minimally Invasive Surgery [address] [facility] Medical Office Building [address] [place] [address] Agapito Steven MD 10/04/2024 Telephone [facility] Minimally Invasive Surgery [address] [facility] 12th Floor, [place] [address] Agapito Steven MD Medical Question/Miscellaneou s 10/04/2024 Telephone [facility] Minimally Invasive Surgery [address] [facility] Medical Office Building [address] [place] [address] Janelle Salazar RN 08/12/2024 11:00 AM COVER MARKER Office Visit [facility] Minimally Invasive Surgery [address] [facility] Medical Office Building [address] [place] [address] Agapito Steven MD Morbid obesity (HCC) (Primary Dx) from Last 3 Months Surgical History Surgery Date Site/Laterality Comments DILATION AND CURETTAGE OF UTERUS ARM SURGERY SKIN GRAFT TUBAL LIGATION Medical History Medical History Date Comments Anxiety 2009 Bipolar disorder (HCC) 2010 Depression 2009 Type 2 diabetes mellitus (HCC) 2007 Fractures [...] on file Legal Sex Female 11:49 AM COVER MARKER Gender Identity Not on file Sexual Orientation Not on file Obstetrics History Last Filed Vital Signs Vital Sign Reading Time Taken Comments Blood Pressure 110/79 08/12/2024 10:47 AM COVER MARKER Pulse 81 08/12/2024 10:47 AM COVER MARKER Temperature 36.7 C (98.1 F) 06/24/2024 10:29 AM COVER MARKER Respiratory Rate 16 05/11/2024 11:53 AM CDT Oxygen Saturation 97% 08/12/2024 10:47 AM COVER MARKER Inhaled Oxygen Concentration - - Weight 86 kg (189 lb 9.6 oz) 08/12/2024 10:47 AM COVER MARKER Height 160 cm (5' 3 ) 08/12/2024 10:47 AM COVER MARKER Body Mass Index 33.59 08/12/2024 10:47 AM COVER MARKER Plan of Treatment Health Maintenance Due Date Last Done Comments Albumin Creatinine Ratio, Urine 1991 Cervical Cancer Screening 1991 Depression Screening 1991 Dilated Eye Exam 1991 Foot Exam 1991 DTaP/Tdap/Td Vaccine (1 - Tdap) 2002 Varicella Vaccines (1 of 2 - 13+ 2-dose series) 2004 Regular Well Visit/Exam 18-64 2009 Pneumococcal vaccine <65 (1 of 2 - PCV) 2010 Covid-19 Vaccine ( season) 2024 10/06/2020 Influenza Vaccine (#1) 2024 [...] ORDERABLES Final Resul t Performing Organization Address [facility] Co de Phone Number [facility] [address] [facility] [place] [address] * POCT hemoglobin A1c (05/05/2024 4:54 PM CDT) Pathologist [facility] Hgb A1C, POC 5.5 4.0 - 5.6 % Est Average Gluc POC 111 mg/dL [facility] Comment: The ADA recommends reporting an estimated Average Glucose (eAG) with all Hemoglobin A1c results using the equation derived from a study of 507 normal and diabetic adults. Minority populations were underrepresented and children were not included. (Diabetes Care 31:7553-9281, 2008). The eAG is not equivalent to a fasting glucose. Blood 05/05/2024 4:54 PM CDT 05/05/2024 4:54 PM CDT us Agapito Steven MD POINT OF CARE TEST ORDERABLES Fi nal Result Performing Organization Address [facility] de Phone Number [facility] Department [place] [address] * Hepatitis C antibody Blood (11/21/2023 10:08 AM CDT) [facility] Hep C Ab Nonreactive Nonreactive Comment:Antibodies to HCV no t detected. Does NOT exclude the possibility of recent exposure to HCV. Current interpretive data was last revised on 22 Blood 11/21/2023 10:0 8 AM CDT 11/21/2023 11:58 AM CDT us Sherif Keys MD LAB MICROBIOLOGY - GENER AL ORDERABLES Final Result [facility] One [facility] Department [place] [address] * (ABNORMAL) Lipid panel (05/03/2022 9:26 AM CDT) Cholesterol 224(H) 30 - 199 mg/dL [facility] Comment: Interpretive Data Ages < or [...] on 2018. Triglycerides 183(H) <=149 mg/dL [facility] Comment: Interpretive Data Ages < or [...] on 2018. HDL 32(L) >=40 mg/dL [facility] Comment: Interpretive Data Ages < or [...] 2018. LDL, calculated 155(H) <=129 mg/dL [facility] Comment: Interpretive Data Ages < or [...] on 2018. Non-HDL Cholesterol 192 mg/dL [facility] Comment: Interpretive Data Ages < or = [...] last revised on 2018. Chol/HDL ratio 7 [facility] Blood 05/03/2022 9:26 AM CDT 05/03/2022 11:30 AM CDT us Sherif Keys MD LAB BLOOD ORDERABLES Fin al Result [facility] One [facility] [place] [address] from Last 3 Months or Most Recently Relevant to Health Maintenance Insurance [facility] Advance Directives For more information, please contact: [phone] * Full Code (Latest Code Status on File) Date Activated Date Inactivated Comments 05/10/2024 12:21 PM 05/11/2024 7:25 PM * Full Code Date Activated Date Inactivated Comments 12/29/2023 8:43 AM 12/29/2023 4:18 PM Care Teams Oil Field Rig Builder Relationship Specialty Start Date End Date Danica Blair MD [address] [place] [address] PCP - General Family Medicine 06/18/21
--- OUTSIDE RECORDS SUMMARY | 2024-10-07 11:54 | XMS_ITS | Referral Summary ---
Author Organization [facility] [address] Address [address] [place] [address] Care Team Providers Care Flying Squad Salesperson Name Role Phone Danica Blair MD Primary Care Provider Encounters Date Type Department Care Team Description 10/07/2024 Telephone [facility] Minimally Invasive Surgery [address] [facility] Medical Office Building [address] [place] [address] Janelle Salazar RN 10/06/2024 Telephone [facility] Minimally Invasive Surgery [facility] [facility] 12th Floor, [place] [address] Matthew Berumen NP Medical Question/Miscellvasquez s 10/06/2024 Orders Only [facility] Minimally Invasive Surgery [facility] Medical Office Building [address] [place] [address] Agapito Steven MD 10/06/2024 Orders Only [facility] Minimally Invasive Surgery [address] [facility] Medical Office Building [address] [place] [address] Agapito Steven MD 10/04/2024 Telephone [facility] Advanced Medicine ([facility]) [facility] Minimally Invasive Surgery [address] [facility] 12th Floor, [place] [address] Agapito Steven MD Medical Question/Miscellaneou s 10/04/2024 Telephone [facility] Minimally Invasive Surgery [address] [place] [address] Medical Office Building [address] [place] [address] Janelle Salazar RN 08/12/2024 11:00 AM SPORTS INTERNSHIP Office Visit [facility] Minimally Invasive Surgery [address] [facility] Medical Office Building [address] [place] [address] Agapito Steven MD Morbid obesity (HCC) (Primary [...] phone. Assessment & Plan (09/25/2022 10:06 PM SPORTS INTERNSHIP): Discussed that significant health benefits/risk reduction may [...] Other: Assessment & Plan (09/25/2022 10:10 PM SPORTS INTERNSHIP): Obesity is unchanged.. Plan: General weight loss/lifestyle [...] liraglutide. Assessment & Plan (09/25/2022 10:08 PM SPORTS INTERNSHIP): Labs. Reviewed available prior labs in chart and Care Everywhere. Continue metformin. Good candidate for tirzepatide or GLP-1 RA. NAFLD (nonalcoholic fatty liver disease) 022 Assessment & Plan (09/25/2022 10:08 PM SPORTS INTERNSHIP): Discussed association with insulin resistance. Discussed potential [...] on file Legal Sex Female 11:49 AM SPORTS INTERNSHIP Gender Identity Not on file Sexual Orientation Not on file Last Filed Vital Signs Vital Sign Reading Time Taken Comments Blood Pressure 110/79 08/12/2024 10:47 AM SPORTS INTERNSHIP Pulse 81 08/12/2024 10:47 AM SPORTS INTERNSHIP Temperature 36.7 C (98.1 F) 06/24/2024 10:29 AM SPORTS INTERNSHIP Respiratory Rate 16 05/11/2024 11:53 AM CDT Oxygen Saturation 97% 08/12/2024 10:47 AM SPORTS INTERNSHIP Inhaled Oxygen Concentration - - Weight 86 kg (189 lb 9.6 oz) 08/12/2024 10:47 AM SPORTS INTERNSHIP Height 160 cm (5' 3 ) 08/12/2024 10:47 AM SPORTS INTERNSHIP Body Mass Index 33.59 08/12/2024 10:47 AM SPORTS INTERNSHIP Plan of Treatment Not on file Procedures [...] ORDERABLES Final Resul t Performing Organization Address City/[facility] Co w[place] Phone Number [facility] [address] [facility]. [place] [address] * POCT hemoglobin A1c (05/05/2024 4:54 PM CDT) Hgb A1C, POC 5.5 4.0 - 5.6 % Est Average Gluc POC 111 mg/dL [facility] Comment: The ADA recommends reporting an estimated Average Glucose (eAG) with all Hemoglobin A1c results using the equation derived from a study of 507 normal and diabetic adults. Minority populations were underrepresented and children were not included. (Diabetes Care 31:2928-6990, 2008). The eAG is not equivalent to a fasting glucose. Blood 05/05/2024 4:54 PM CDT 05/05/2024 4:54 PM CDT us Agapito Steven MD POINT OF CARE TEST ORDERABLES Fi nal Result Performing Organization Address City/[facility] de Phone Number [facility] Department [place] [address] * Hepatitis C antibody Blood (11/21/2023 10:08 AM CDT) Hep C Ab Nonreactive Nonreactive Comment:Antibodies to HCV no t detected. Does NOT exclude the possibility of recent exposure to HCV. Current interpretive data was last revised on 22 Blood 11/21/2023 10:0 8 AM CDT 11/21/2023 11:58 AM CDT us Sherif Kesy MD LAB MICROBIOLOGY - GENER AL ORDERABLES Final Result Performing Organization Address [facility] de Phone Number [facility] Department [place] [address] * (ABNORMAL) Lipid panel (05/03/2022 9:26 AM CDT) Cholesterol 224(H) 30 - 199 mg/dL [facility] Comment: Interpretive Data Ages < [...] revised on 2018. Triglycerides 183(H) <=149 mg/dL [facility] Comment: Interpretive Data Ages < [...] revised on 2018. HDL 32(L) >=40 mg/dL [facility] Comment: Interpretive Data Ages < [...] on 2018. LDL, calculated 155(H) <=129 mg/dL [facility] Comment: Interpretive Data Ages < [...] revised on 2018. Non-HDL Cholesterol 192 mg/dL [facility] Comment: Interpretive Data Ages < [...] last revised on 2018. Chol/HDL ratio 7 [facility] Blood 05/03/2022 9:26 AM CDT 05/03/2022 11:30 AM CDT Sherif Keys MD LAB BLOOD ORDERABLES Fin al Result [facility] [place] [address] from Last 3 Months or Most Recently Relevant to Health Maintenance Insurance Advance Directives For more information, please contact: [phone] * Full Code (Latest Code Status on File) Date Activated Date Inactivated Comments 05/10/2024 12:21 PM 05/11/2024 7:25 PM * Full Code Date Activated Date Inactivated Comments 12/29/2023 8:43 AM 12/29/2023 4:18 PM Care Teams Flying Squad Salesperson Relationship Specialty Start Date End Date Danica Blair MD [address] [place] [address] PCP - General Family Medicine 06/18/21
--- OUTSIDE RECORDS SUMMARY | 2024-10-07 11:54 | XMS_ITS | Encounter Summary ---
Author Organization [facility] Address [address] [place] [address] Care Team Providers Care Asphalt Tamper Name Role Phone Danica Blair MD Primary Care Provider [phone] Encounter Details Date Type Department Care Team (Late st Contact Info) Description 12/26/2018 Abstract [facility] CONVERSION [address] [place] [id number] , Generic ConversionMD Social History Tobacco Use Types Packs/Day Years Used Date Smoking Tobacco: Never Assessed Comments Unknown Sex and Gender Information Value Date Recorded Sex Assigned at Not on file Legal Sex Female 5:55 PM DESIGN STUDIO CONSULTANT Gender Identity Not on file Sexual Orientation Not on file documented as of this encounter Plan of Treatment Not on file documented as of this encounter Visit Diagnoses Not on filedocumented in this encounter Additional Health Concerns Infection Onset Date Last Indicated Resolved Time COVID-19 Rule Out 07/03/2022 07/03/2022 07/03/2022 10:57 PM DESIGN STUDIO CONSULTANT COVID-19 Rule Out 06/30/2024 06/30/2024 06/30/2024 10:24 AM DESIGN STUDIO CONSULTANT documented as of this encounter Care Teams Asphalt Tamper Relationship Specialty Start Date End Date Danica Blair MD [address] [place] [id number] PCP - General FAMILY PRACTICE 11/22/20 documented as of this encounter
--- OUTSIDE RECORDS SUMMARY | 2024-10-07 11:54 | XMS_ITS | Encounter Summary ---
Author Organization [facility] Address [address] [facility] [address] [place] [address] Phone Care Team Providers Care Inoculator Name Role Phone Danica Blair MD Primary Care Provider Reason for Visit * Reason Onset Date Comments Medical Question/Miscellaneous 10/06/2024 Encounter Details Date Type Department Care Team (Late st Contact Info) Description 10/06/2024 Telephone [facility] ([facility] Minimally Invasive Surgery [address] 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 Steven Medical/Surgical Information: Spoke w/pharmacist Liliana, who wanted to confirm amount of each ingredient in GI cocktail. Per [facility] pharmacist Rick, equal parts per ingredient (1:1:1:1 ratio). Outcome/Plan: Liliana mclain [facility] updated * Telephone Encounter - Jael Rivera - 10/06/2024 12:12 PM CDT Patient Query: Was an attempt to transfer to the assigned clinical staff or backline? no Reason for call?: Niurka calling from [facility] requesting clarification on the recent order for medication they received for this patient (Read message back to caller and ask them if there is anything else they'd like to add to the message) Who is the caller: Niurka What is the best number for them to contact for a call back: [phone] Last office visit: 10/04/2024 Date of Surgery: 05/10/2024 Recent Surgery: Laparoscopic Gastric Bypass and Esophagogastroduodenoscopy documented in this encounter Plan of Treatment Not on file documented as of this encounter Visit Diagnoses Not on filedocumented in this encounter Care Teams Inoculator Relationship Specialty [place] [address] [place] [address] [place] [address] PCP - General Family Medicine 06/18/21 documented as of this encounter
[2024-10-07 12:00] LABS: Influenza A QL RT-PCR Negative (Negative); Influenza B QL RT-PCR Negative (Negative); RSV RNA, RT-PCR Negative (Negative); SARS-CoV-2 RNA PCR Negative (Negative)
--- OUTSIDE RECORDS SUMMARY | 2024-10-07 12:25 | XMS_ITS | Encounter Summary ---
Author Organization [facility] Address [address] Luise [facility] [address] [place] [address] Phone Care Team Providers Care Retail Advertising Account Executive Name Role Phone Danica Blair MD Primary Care Provider Encounter Details Date Type Department Care Team (Late st Contact Info) Description 10/06/2024 Orders Only [facility] Minimally Invasive [facility] Medical Office Building [address] [place] [address] Agapito Steven MD [address] [facility] [phone] [place], [place] [id number] Social History Tobacco Use Types Packs/Day Years [...] on file Legal Sex Female 11:49 AM ALTERATION SPECIALIST Gender Identity Not on file Sexual Orientation [...] on filedocumented in this encounter Care Teams Retail Advertising Account Executive Relationship Specialty [place] [address] [place] [address] [place] [address] PCP - General Family Medicine 06/18/21 documented as of this encounter
--- OUTSIDE RECORDS SUMMARY | 2024-10-07 12:25 | XMS_ITS | Encounter Summary ---
Author Organization [facility] Address [address] [facility] [address] [place] [address] Phone Care Team Providers Care Wind Tunnel Engineer Name Role Phone Danica Blair MD Primary Care Provider Reason for Visit * Reason Onset Date Comments Medical Question/Miscellaneous 10/04/2024 Encounter Details Date Type Department Care Team (Late st Contact Info) Description 10/04/2024 Telephone [place] [facility] - [facility] Minimally Invasive Surgery [address] [facility] Advanced Medicine 12th Floor, [place] [address] Agapito Steven MD [address] [facility] [phone] [place] [address] Medical Question/Miscellaneous Social History Tobacco [...] on file Legal Sex Female 11:49 AM FORM MAKER Gender Identity Not on file Sexual Orientation [...] hours. If unable to tolerate liquids, reportto [facility]. Asked pt to reach out to [...] them to contact for a call back: [phone] documented in this encounter Plan of Treatment Not on file documented as of this encounter Visit Diagnoses Not on filedocumented in this encounter Care Teams Wind Tunnel Engineer Relationship Specialty Start Date End Date Danica Blair MD [address] [facility] [place] [address] PCP - General Family Medicine 06/18/21 documented as of this encounter
--- OUTSIDE RECORDS SUMMARY | 2024-10-07 12:25 | XMS_ITS | Encounter Summary ---
Author Organization [facility] Address [address] Lu[address] [facility] [address] [place] [address] Phone Care Team Providers Care Senior Case Manager Name Role Phone Danica Blair MD Primary Care Provider Encounter Details Date Type Department Care Team (Late st Contact Info) Description 10/06/2024 Orders Only [facility] Minimally Invasive Surgery [facility] Medical Office Building [address] [place] [address] Agapito Steven MD [address] [facility] [phone] [place], [place] [id number] Social History Tobacco Use Types Packs/Day Years [...] on file Legal Sex Female 11:49 AM DEFECT CUTTER Gender Identity Not on file Sexual Orientation [...] on filedocumented in this encounter Care Teams Senior Case Manager Relationship Specialty Start Date End Date Danica Blair MD [address] [place] [address] PCP - General Family Medicine 06/18/21 documented as of this encounter
--- OUTSIDE RECORDS SUMMARY | 2024-10-07 12:25 | XMS_ITS | Encounter Summary ---
Author Organization [facility] Address [address] [place] [address] Care Team Providers Care University Relations Vice President Name Role Phone Danica Blair MD Primary Care Provider [phone] Encounter Details Date Type Department Care Team (Late st Contact Info) Description 12/26/2018 Abstract [facility] CONVERSION [address] [place] [id number] , Generic ConversionMD Social History Tobacco Use Types Packs/Day Years Used Date Smoking Tobacco: Never Assessed Comments Unknown Sex and Gender Information Value Date Recorded Sex Assigned at Not on file Legal Sex Female 5:55 PM DEMAND GENERATOR MANAGER Gender Identity Not on file Sexual Orientation Not on file documented as of this encounter Plan of Treatment Not on file documented as of this encounter Visit Diagnoses Not on filedocumented in this encounter Additional Health Concerns Infection Onset Date Last Indicated Resolved Time COVID-19 Rule Out 07/03/2022 07/03/2022 07/03/2022 10:57 PM DEMAND GENERATOR MANAGER COVID-19 Rule Out 06/30/2024 06/30/2024 06/30/2024 10:24 AM DEMAND GENERATOR MANAGER documented as of this encounter Care Teams University Relations Vice President Relationship Specialty Start Date End Date Danica Blair MD [address] [place] [id number] PCP - General FAMILY PRACTICE 11/22/20 documented as of this encounter
--- OUTSIDE RECORDS SUMMARY | 2024-10-07 12:25 | XMS_ITS | Clinical Summary ---
Author Organization [facility] Address [address] [place] [address] Care Team Providers Care General Teller Name Role Phone Danica Blair MD Primary Care Provider [phone] Allergies Active Allergy Reactions Criticality Noted Date Comments Amoxicillin-Pot Clavulanate Unknown,Nausea and Vomiting Low 11/24/2020 Metronidazole Unknown,Other (see comment) Low 11/24/2020 Red face and disoriented Nalbuphine Unknown,Other (see comment) Low 11/24/2020 breathing Medications vitamin D2, ergocalciferol, 86971 UNITS capsule 1 (one) Capsule weekly x [...] Department Care Team Description 09/15/2024 10:06 AM DATA OPERATIONS DIRECTOR - 09/15/2024 11:59 PM DATA OPERATIONS DIRECTOR Hospital Encounter [facility] [address] [facility] [place] [address] Isabell Tariq NP Discharge Disposition: Home [...] on file Legal Sex Female 5:55 PM DATA OPERATIONS DIRECTOR Gender Identity Not on file Sexual Orientation Not on file Last Filed Vital Signs Vital Sign Reading Time Taken Comments Blood Pressure 104/70 06/30/2024 10:45 AM DATA OPERATIONS DIRECTOR Pulse 85 06/30/2024 10:45 AM DATA OPERATIONS DIRECTOR Temperature 36.3 C (97.3 F) 06/30/2024 9:11 AM DATA OPERATIONS DIRECTOR Respiratory Rate 18 06/30/2024 10:45 AM DATA OPERATIONS DIRECTOR Oxygen Saturation 97% 06/30/2024 10:45 AM DATA OPERATIONS DIRECTOR Inhaled Oxygen Concentration - - Weight 93.2 kg (205 lb 6.4 oz) 06/30/2024 9:11 A M DATA OPERATIONS DIRECTOR Height 160 cm (5' 3 ) 06/30/2024 9:11 AM DATA OPERATIONS DIRECTOR Body Mass Index 36.38 06/30/2024 9:11 AM DATA OPERATIONS DIRECTOR Plan of Treatment Health Maintenance Due Date [...] HIP RT 2V Routine 09/15/2024 10:23 AM DATA OPERATIONS DIRECTOR Right hip pain from Last 3 Months Results * XR HIP RT 2V (09/15/2024 10:23 AM DATA OPERATIONS DIRECTOR) Anatomical Region Laterality Modality Hip Radiographic Junie ging 09/15/2024 10:5 0 AM DATA OPERATIONS DIRECTOR Impressions 09/15/2024 10:52 AM DATA OPERATIONS DIRECTOR IMPRESSION: No acute bony abnormality about the right hip. Suspected labral calcification and acetabular osteophyte. Ordered By: ISABELL TARIQ Interpreted By: Dillon Whipple MD, 09/15/2024 10:50 AM Narrative 09/15/2024 10:52 AM DATA OPERATIONS DIRECTOR [address] [place] [id number] Procedure(s): XR HIP RT 2V Date of [...] Procedure Note Dillon Whipple MD - 09/15/[address] [place] [address] Procedure(s): XR HIP RT 2V Date of [...] MD, 09/15/2024 10:50 AM us Isabell Tariq MORPHOLOGIST GENERAL IMAGING Final Resul t from Last 3 Months Insurance [address] [place] [address] Care Teams General Teller Relationship Specialty Start Date End Date Danica Blair MD [address] [place] [address] PCP - General FAMILY PRACTICE 11/22/20
--- OUTSIDE RECORDS SUMMARY | 2024-10-07 12:25 | XMS_ITS | Encounter Summary ---
Author Organization [facility] Address [address] [place] [address] Phone Care Team Providers Care Shrimp Cleaner Name Role Phone Danica Blair MD Primary Care Provider Encounter Details Date Type Department Care Team (Late st Contact Info) Description 10/07/2024 Telephone [facility] Minimally Invasive Surgery [address] [place] [address] Medical Office Building [address] [place] [address] Janelle Salazar, RN Social History [...] on file Legal Sex Female 11:49 AM STONE CLEANER Gender Identity Not on file Sexual Orientation Not on file documented as of this encounter Miscellaneous Notes * Telephone Encounter - Janelle Salazar RN - 10/07/2024 11:15 AM CDT Date: 10/07/2024 Provider: Dr. Steven Medical/Surgical Information: s/p RYGB 04/2024. Has had abdominal pain this week and difficult PO intake. Dr. Steven suspects ulcer d/t recent smoking. Pt sent [employer] message this morning informing us she was going [facility] ED d/t dizziness. Dr. Steven suspects dehydration. Outcome/Plan: Dr. Steven spoke w/[place] ED Attending and offered transfer to [facility]. Plan for immediatefluid resuscitation at local ED at this time and treatment with PPI. documented in this encounter Plan of Treatment Not on file documented as of this encounter Visit Diagnoses Not on filedocumented in this encounter Care Teams Shrimp Cleaner Relationship Specialty Start Date End Date Danica Blair MD [address] [place] [address] PCP - General Family Medicine 06/18/21 documented as of this encounter
--- OUTSIDE RECORDS SUMMARY | 2024-10-07 12:25 | XMS_ITS | Clinical Summary ---
Author Organization [facility] Address [address] [place] [address] Care Team Providers Care Manager Dairy Name Role Phone Unavailable Primary Care Provider Unavailabl e Source Comments [facility],non-owned Affiliates and Associated Physician Practices is amultiple site organization consisting of ambulatory clinics and hospital sitesin [place], [place], [place] and [place]. This disclosure is being madepursuant to the Care Everywhere program and may not contain all information available regarding this patient. Last updated 18.[facility] [employer] Social History Tobacco Use Types Packs/Day Years [...]
--- OUTSIDE RECORDS SUMMARY | 2024-10-07 12:25 | XMS_ITS | Clinical Summary ---
Author Organization [facility] [address] [facility] Address [address] [place] [address] Care Team Providers Care Coiled Tubing Operator Name Role Phone Danica Blair MD Primary [...] phone. Assessment & Plan (09/25/2022 10:06 PM DRY CLEANING CHECKER): Discussed that significant health benefits/risk reduction may [...] Other: Assessment & Plan (09/25/2022 10:10 PM DRY CLEANING CHECKER): Obesity is unchanged.. Plan: General weight loss/lifestyle [...] liraglutide. Assessment & Plan (09/25/2022 10:08 PM DRY CLEANING CHECKER): Labs. Reviewed available prior labs in chart and Care Everywhere. Continue metformin. Good candidate for tirzepatide or GLP-1 RA. NAFLD (nonalcoholic fatty liver disease) 022 Assessment & Plan (09/25/2022 10:08 PM DRY CLEANING CHECKER): Discussed association with insulin resistance. Discussed potential for improvement and/or reduced progression with weight loss. Resolved Problems Problem Noted Date Diagnosed Date Resolved Date Obesity (BMI 30-39.9) 10/20/20232023 BMI 38.0-38.9,adult 05/03/2022 11/23/19 24 Encounters Date Type Department Care Team Description 10/07/2024 Telephone [facility] Minimally Invasive Surgery [address] [facility] Medical Office Building [address] [place] [address] Janelle Salazar RN 10/06/2024 Telephone [facility] Minimally Invasive Surgery [address] [facility] 12th Floor, [place] [address] Matthew Berumen NP Medical Question/Miscellaneou s 10/06/2024 Orders Only [facility] Minimally Invasive Surgery [address] [facility] Medical Office Building [address] [place] [address] Agapito Steven MD 10/06/2024 Orders Only [facility] Minimally Invasive Surgery [address] [facility] Medical Office Building [address] [place] [address] Agapito Steven MD 10/04/[address] [facility] Minimally Invasive Surgery [address] [facility] 12th Floor, [place] [address] Agapito Steven MD Medical Question/Miscellaneou s 10/04/2024 Telephone [facility] Minimally Invasive Surgery [address] [facility] Medical Office Building [address] [place] [address] Janelle Salazar RN 08/12/2024 11:00 AM DRY CLEANING CHECKER Office Visit [facility] Minimally Invasive Surgery [address] [facility] Medical Office Building [address] [place] [address] Agapito Steven MD Morbid obesity (HCC) (Primary [...] on file Legal Sex Female 11:49 AM DRY CLEANING CHECKER Gender Identity Not on file Sexual Orientation Not on file Obstetrics History Last Filed Vital Signs Vital Sign Reading Time Taken Comments Blood Pressure 110/79 08/12/2024 10:47 AM DRY CLEANING CHECKER Pulse 81 08/12/2024 10:47 AM DRY CLEANING CHECKER Temperature 36.7 C (98.1 F) 06/24/2024 10:29 AM DRY CLEANING CHECKER Respiratory Rate 16 05/11/2024 11:53 AM CDT Oxygen Saturation 97% 08/12/2024 10:47 AM DRY CLEANING CHECKER Inhaled Oxygen Concentration - - Weight 86 kg (189 lb 9.6 oz) 08/12/2024 10:47 AM DRY CLEANING CHECKER Height 160 cm (5' 3 ) 08/12/2024 10:47 AM DRY CLEANING CHECKER Body Mass Index 33.59 08/12/2024 10:47 AM DRY CLEANING CHECKER Plan of Treatment Health Maintenance Due Date [...] ORDERABLES Final Resul t Performing Organization Address [facility] Co de Phone Number [facility] [address] [facility] [place] [address] * POCT hemoglobin A1c (05/05/2024 4:54 PM CDT) Pathologist [facility] Hgb A1C, POC 5.5 4.0 - 5.6 % Est Average Gluc POC 111 mg/dL [facility] Comment: The ADA recommends reporting an estimated Average Glucose (eAG) with all Hemoglobin A1c results using the equation derived from a study of 507 normal and diabetic adults. Minority populations were underrepresented and children were not included. (Diabetes Care 31:7815-3049, 2008). The eAG is not equivalent to a fasting glucose. Blood 05/05/2024 4:54 PM CDT 05/05/2024 4:54 PM CDT us Agapito Steven MD POINT OF CARE TEST ORDERABLES Fi nal Result Performing Organization Address [facility] de Phone Number [facility] Department [place] [address] * Hepatitis C antibody Blood (11/21/2023 10:08 AM CDT) [facility] Hep C Ab Nonreactive Nonreactive Comment:Antibodies to HCV no t detected. Does NOT exclude the possibility of recent exposure to HCV. Current interpretive data was last revised on 22 Blood 11/21/2023 10:0 8 AM CDT 11/21/2023 11:58 AM CDT us Sherif Keys MD LAB MICROBIOLOGY - GENER AL ORDERABLES Final Result [facility] Department [place] [address] * (ABNORMAL) Lipid panel (05/03/2022 9:26 AM CDT) Cholesterol 224(H) 30 - 199 mg/dL [facility] Comment: Interpretive Data Ages < or = [...] on 2018. Triglycerides 183(H) <=149 mg/dL [facility] Comment: Interpretive Data Ages < or = [...] on 2018. HDL 32(L) >=40 mg/dL [facility] Comment: Interpretive Data Ages < or = [...] 2018. LDL, calculated 155(H) <=129 mg/dL [facility] Comment: Interpretive Data Ages < or = [...] LAB BLOOD ORDERABLES Fin al Result [facility] Department [place] [address] from Last 3 Months or Most Recently Relevant to Health Maintenance Insurance [facility] Advance Directives For more information, please contact: [phone] * Full Code (Latest Code Status on File) Date Activated Date Inactivated Comments 05/10/2024 12:21 PM 05/11/2024 7:25 PM * Full Code Date Activated Date Inactivated Comments 12/29/2023 8:43 AM 12/29/2023 4:18 PM Care Teams Coiled Tubing Operator Relationship Specialty Start Date End Date Danica Blair MD [address] [place] [address] PCP - General Family Medicine 06/18/21
--- OUTSIDE RECORDS SUMMARY | 2024-10-07 12:25 | XMS_ITS | Encounter Summary ---
Author Organization [facility] Address [address] [facility] [address] [place] [address] Phone Care Team Providers Care Recruiting Administrator Name Role Phone Danica Blair MD Primary Care Provider Reason for Visit * Reason Onset Date Comments Medical Question/Miscellaneous 10/06/2024 Encounter Details Date Type Department Care Team (Late st Contact Info) Description 10/06/2024 Telephone [facility] ([facility] - [facility] Minimally Invasive Surgery [address] [facility] Advanced Medicine 12th Floor, [place] [address] Matthew Berumen, ION [address] [facility] [phone] [place] [address] Medical Question/Miscellaneous Social History Tobacco [...] on file Legal Sex Female 11:49 AM MENAGERIE CARETAKER Gender Identity Not on file Sexual Orientation Not on file documented as of this encounter Miscellaneous Notes * Telephone Encounter - Janelle Salazar RN - 10/06/2024 1:05 PM CDT Date: 10/06/2024 Please transfer to: Liliana Salazar Reason: MISTeleReason: Follow up Provider: Dr. Steven Medical/Surgical Information: Spoke w/pharmacist Liliana, who wanted to confirm amount of each ingredient in GI cocktail. Per [facility] pharmacist Rick, equal parts per ingredient (1:1:1:1 ratio). Outcome/Plan: Liliana mclain [facility] updated * Telephone Encounter - Jael Rivera - 10/06/2024 12:12 PM CDT Patient Query: Was an attempt to transfer to the assigned clinical staff or backline? no Reason for call?: Niurka calling from [facility] requesting clarification on the recent order for medication they received for this patient (Read message back to caller and ask them if there is anything else they'd like to add to the message) Who is the caller: Niurka What is the best number for them to contact for a call back: [phone] Last office visit: 10/04/2024 Date of Surgery: 05/10/2024 Recent Surgery: Laparoscopic Gastric Bypass and Esophagogastroduodenoscopy documented in this encounter Plan of Treatment Not on file documented as of this encounter Visit Diagnoses Not on filedocumented in this encounter Care Teams Recruiting Administrator Relationship Specialty [place] [address] [place] [address] [place] [address] PCP - General Family Medicine 06/18/21 documented as of this encounter
--- OUTSIDE RECORDS SUMMARY | 2024-10-07 12:25 | XMS_ITS | Encounter Summary ---
Author Organization 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 [address] PCP - General Family Medicine 06/18/21 Rachel Moreira, PT Physical Therapist Physical Therapy 07/24/23 07/24/23 documented as of this encounter
--- OUTSIDE RECORDS SUMMARY | 2024-10-07 12:25 | XMS_ITS | Referral Summary ---
Author Organization [facility] [address] [facility] Address [address] [place] [address] Care Team Providers Care Hand Umbrella Tipper Name Role Phone Danica Blair MD Primary Care Provider [phone] Encounters Date Type Department Care Team Description 10/07/2024 Telephone [facility] Minimally Invasive Surgery [address] [facility] Medical Office Building [address] [place] [phone] Janelle Salazar RN 10/06/2024 Telephone [facility] Minimally Invasive Surgery [facility] 12th Floor, [place] [address] Matthew Berumen NP Medical Question/Miscellvasquez s 10/06/2024 Orders Only [facility] Minimally Invasive Surgery [facility] Medical Office Building [address] [place] [phone] Agapito Steven MD 10/06/2024 Orders Only [facility] Minimally Invasive Surgery [address] [facility] Medical Office Building [address] [place] [phone] Agapito Steven MD 10/04/2024 Telephone [facility] Minimally Invasive Surgery [address] [facility] 12th Floor, [place] [address] Agapito Steven MD Medical Question/Miscellaneou s 10/04/2024 Telephone [facility] Minimally Invasive Surgery [address] [place] [address] Medical Office Building [address] [place] [phone] Janelle Salazar RN 08/12/2024 11:00 AM GENERAL CLEANER Office Visit [facility] Minimally Invasive Surgery [address] [facility] Medical Office Building [address] [place] [phone] Agapito Steven MD Morbid obesity (HCC) (Primary [...] phone. Assessment & Plan (09/25/2022 10:06 PM GENERAL CLEANER): Discussed that significant health benefits/risk reduction may [...] Other: Assessment & Plan (09/25/2022 10:10 PM GENERAL CLEANER): Obesity is unchanged.. Plan: General weight loss/lifestyle [...] liraglutide. Assessment & Plan (09/25/2022 10:08 PM GENERAL CLEANER): Labs. Reviewed available prior labs in chart and Care Everywhere. Continue metformin. Good candidate for tirzepatide or GLP-1 RA. NAFLD (nonalcoholic fatty liver disease) 022 Assessment & Plan (09/25/2022 10:08 PM GENERAL CLEANER): Discussed association with insulin resistance. Discussed potential [...] on file Legal Sex Female 11:49 AM GENERAL CLEANER Gender Identity Not on file Sexual Orientation Not on file Last Filed Vital Signs Vital Sign Reading Time Taken Comments Blood Pressure 110/79 08/12/2024 10:47 AM GENERAL CLEANER Pulse 81 08/12/2024 10:47 AM GENERAL CLEANER Temperature 36.7 C (98.1 F) 06/24/2024 10:29 AM GENERAL CLEANER Respiratory Rate 16 05/11/2024 11:53 AM CDT Oxygen Saturation 97% 08/12/2024 10:47 AM GENERAL CLEANER Inhaled Oxygen Concentration - - Weight 86 kg (189 lb 9.6 oz) 08/12/2024 10:47 AM GENERAL CLEANER Height 160 cm (5' 3 ) 08/12/2024 10:47 AM GENERAL CLEANER Body Mass Index 33.59 08/12/2024 10:47 AM GENERAL CLEANER Plan of Treatment Not on file Procedures [...] ORDERABLES Final Resul t Performing Organization Address City/[facility] Co la Phone Number [facility] [address] [facility]. [place] [address] * POCT hemoglobin A1c (05/05/2024 4:54 PM CDT) Hgb A1C, POC 5.5 4.0 - 5.6 % Est Average Gluc POC 111 mg/dL [facility] Comment: The ADA recommends reporting an estimated Average Glucose (eAG) with all Hemoglobin A1c results using the equation derived from a study of 507 normal and diabetic adults. Minority populations were underrepresented and children were not included. (Diabetes Care 31:0530-0125, 2008). The eAG is not equivalent to a fasting glucose. Blood 05/05/2024 4:54 PM CDT 05/05/2024 4:54 PM CDT us Agapito Steven MD POINT OF CARE TEST ORDERABLES Fi nal Result Performing Organization Address City/[facility] de Phone Number [facility] Department [place] [address] * Hepatitis C antibody Blood (11/21/2023 10:08 AM CDT) Hep C Ab Nonreactive Nonreactive Comment:Antibodies to HCV no t detected. Does NOT exclude the possibility of recent exposure to HCV. Current interpretive data was last revised on 22 Blood 11/21/2023 10:0 8 AM CDT 11/21/2023 11:58 AM CDT us Sherif Keys MD LAB MICROBIOLOGY - GENER AL ORDERABLES Final Result Performing Organization Address [facility] de Phone Number [facility] Department [place] [address] * (ABNORMAL) Lipid panel (05/03/2022 9:26 AM CDT) Cholesterol 224(H) 30 - 199 mg/dL [facility] Comment: Interpretive Data Ages < or [...] revised on 2018. Triglycerides 183(H) <=149 mg/dL [facility] Comment: Interpretive Data Ages < or [...] revised on 2018. HDL 32(L) >=40 mg/dL [facility] Comment: Interpretive Data Ages < or [...] on 2018. LDL, calculated 155(H) <=129 mg/dL [facility] Comment: Interpretive Data Ages < or [...] revised on 2018. Non-HDL Cholesterol 192 mg/dL [facility] Comment: Interpretive Data Ages < or [...] last revised on 2018. Chol/HDL ratio 7 [facility] Blood 05/03/2022 9:26 AM CDT 05/03/2022 11:30 AM CDT Sherif Keys MD LAB BLOOD ORDERABLES Fin al Result [facility] Department [place] [address] from Last 3 Months or Most Recently Relevant to Health Maintenance Insurance Advance Directives For more information, please contact: [phone] * Full Code (Latest Code Status on File) Date Activated Date Inactivated Comments 05/10/2024 12:21 PM 05/11/2024 7:25 PM * Full Code Date Activated Date Inactivated Comments 12/29/2023 8:43 AM 12/29/2023 4:18 PM Care Teams Hand Umbrella Tipper Relationship Specialty Start Date End Date Danica Blair MD [address] [facility] [place] [address] PCP - General Family Medicine 06/18/21
[2024-10-07 12:36] VITALS: BP 91/52; PULSE 65; RESP 16; TEMP 36.7; O2SAT 99
[2024-10-08 00:03] LABS: Glucose Point of Care 86 mg/dl (65-105)
== END 2024-10-07 12:40 | disposition home or self-care (01) ==
PROVIDERS: Emergency Provider Emergency Medicine; PCP Family Medicine
DX: K25.3 Acute gastric ulcer without hemorrhage or perforation (principal); E11.9 Type 2 diabetes mellitus without complications; Z20.822 Contact with and (suspected) exposure to COVID-19
CPT/HCPCS: 36415; 80053; 82948; 83605; 85025; 87637; 93005; 96361; 96374; 96375; 99284; J2405; J2470; J7030

== ENCOUNTER 2025-02-16 17:57 | Emergency (ER) | payer OTHER, SELFPAY ==
--- NOTE | ~2025-02-16 | XR_ITS ---
EXAM: XR thoracic spine 2V DATE: 02/16/2025 18:30 HISTORY: midback pain . COMPARISON: None available. FINDINGS: The cervicothoracic junction is obscured in the lateral view. Vertebral body alignment int act. Vertebral body heights preserved. Mild multilevel degenerative disc disease. No traumatic malali gnment or fracture. Visualized lung parenchyma is clear. Suture material over the left upper quadrant . IMPRESSION: No acute fracture or traumatic malalignment detected in the thoracic spine. Reviewed, dictated and finalized at location K. IMPRESSION: No acute fracture or traumatic malalignment detected in the thoraci c spine.
[2025-02-16 17:58] VITALS: BP 116/86; PULSE 91; RESP 16; TEMP 37.2; O2SAT 97
--- OUTSIDE RECORDS SUMMARY | 2025-02-16 17:59 | XMS_ITS | Clinical Summary ---
Author Organization [facility] Address [address] [place] [address] Care Team Providers Care Head Start Teacher Name Role Phone Danica Blair MD Primary Care Provider [phone] Allergies Active Allergy Reactions Criticality Noted Date Comments Amoxicillin-Pot Clavulanate Unknown,Nausea and Vomiting Low 11/24/2020 Metronidazole Unknown,Other (see comment) Low 11/24/2020 Red face and disoriented Nalbuphine Unknown,Other (see comment) Low 11/24/2020 breathing Medications vitamin D2, ergocalciferol, [address]22 UNITS capsule 1 (one) Capsule weekly x [...] needed for Wheezing. 18 g 4 Active Cyanocobalamin (VITAMIN B 12 OR) Take 500 mcg by mouth daily. Active pantoprazole EC (PROTONIX) 40 MG tablet Take 1 tablet (40 mg total) by mouth daily. Active amphetamine-dex troamphetamine (ADDERALL) 20 MG tablet Take 1 tablet (20 mg total) by mouth daily. Every morning and at noon. Active Encounters Date Type Department Care Team Description 12/27/2024 6:43 PM CDT - 12/27/2024 9:22 PM CDT Emergency [facility] [facility] [address] [place], [facility] Devonte Ennis MD Abdominal Pain Discharge Disposition: Home or Self Care (Routine Discharge) 12/27/2024 Travel from Last 3 Months Social History Tobacco Use Types Packs/Day Years Used Date Smoking Tobacco: Every Day Electronic Cigarettes Smokeless Tobacco: Never Alcohol Use Standard Drinks/Week Comments Yes 0 (1 standard drink = 0.6 oz pur e alcohol) SOCIALLY Comments No Sex and Gender Information Value Date Recorded Sex Assigned at Female 12/27/2024 9:21 PM CDT 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 Gender Identity Not on file Sexual Orientation Not on file Last Filed Vital Signs Vital Sign Reading Time Taken Comments Blood Pressure 110/74 12/27/2024 6:43 PM CDT Pulse 79 12/27/2024 6:43 PM CDT Temperature 36.7 C (98 F) 12/27/2024 6:43 PM CDT Respiratory Rate 16 12/27/2024 6:43 PM CDT Oxygen Saturation 100% 12/27/2024 6:43 PM CDT Inhaled Oxygen Concentration - - Weight 65 kg (143 lb 6.4 oz) 12/27/2024 6:43 PM CDT Height 160 cm (5' 3) 12/27/2024 6:43 PM CDT Body Mass Index 25.4 12/27/2024 6:43 PM CDT Plan of Treatment Health Maintenance Due Date Last Done Comments Cervical Cancer Screening Pa p Smear (Age 30 to 64) Every 3 Years 1991 Annual Physical 1994 DTaP, Tdap and Td Vaccines ( 1 - Tdap) 2010 Hepatitis B Vaccines (1 of 3 - 19+ 3-dose series) 2010 Pneumococcal Vaccine: Pediatrics (0 to 5 Years) and At-Risk Patients (6 to 49 Years) (1 of 2 - PCV) 2010 HPV Vaccines (1 - 3-dose SCD M series) 2018 Cervical Cancer Screening Pa p with HPV Testing (Age 30 to 64) Every 5 Years 2021 Cervical Cancer Screening wi th HPV 2021 COVID-19 Vaccine (2 - 2023-2 5 season) 2024 10/06/2020 Hepatitis C Completed 05/03/2022, 05/03/2022, 05/03/2022 Meningococcal B Vaccine Aged Out No l onger eligible based on patient's age to complete this topic Meningococcal Vaccine Aged Out No yenni edu eligible based on patient's age to complete this topic RSV Immunizations Under 20 Months Aged Out No longer eligible b ased on patient's age to complete this topic Procedures Procedure Name Priority Date/Time Associated Diagnosis Comments CT ABD+PEL W CON STAT 12/27/2024 8:45 PM CDT LIPASE STAT 12/27/2024 7:32 PM CDT TROPONIN, QUANT STAT 12/27/2024 7:32 PM CDT COMPREHENSIVE METABOLIC PANEL STAT 12/27/2024 7:32 PM CDT CBC W/DIFF AUTOMATED STAT 12/27/2024 7:32 PM CDT ECG 12-LEAD STAT 12/27/2024 7:25 PM CDT from Last 3 Months Results * CT ABD+PEL W IV CON ONLY (12/27/2024 8:45 PM CDT) Anatomical Region Laterality Modality Abdomen Computed Tomogra phy 12/27/2024 8:52 PM CDT Impressions 12/27/2024 9:06 PM CDT IMPRESSION: 1. Postsurgical densities in the stomach and proximal small intestine related to prior gastric bypass surgery. No bowel obstruction. 2. Moderate stool in the colon suggesting constipation. 3. Hypodensity in the posterior subcapsular medial segment of left lobe of liver near the gallbladder fossa, likely an area of focal fatty replacement, with a hemangioma or other liver lesion less likely. Recommend ultrasound of the liver as initial step in further assessment. If ultrasound is nondiagnostic, then consider nonemergent MRI of the liver with and without dynamic contrast enhancement for further assessment. 4. Suspect surgical listhesis related to tubal ligation in the pelvis. Tiny amount of free fluid in the posterior cul-de-sac, likely physiological ruptured ovarian follicle or cyst. 5. Sclerotic foci in the proximal femurs are likely benign bone islands. Referred By: Interpreted By: Tatyana Rand MD, 12/27/2024 8:52 PM Narrative 12/27/2024 9:06 PM CDT [place] [id number] [facility] [place] [address] EXAMINATION: CT Abdomen and Pelvis with intravenous contrast, axial images with 2D coronal and sagittal reconstruction. 85 mL Isovue-370 was administered intravenously through an existing right antecubital fossa IV catheter. This CT exam was performed using one or more of the following dose reduction techniques: automated exposure control, adjustment of the mA and/or kV according to patient size, the use of iterative reconstruction technique, use of ALARA (As Low As Reasonably Achievable) and/or use of Image Gently techniques. INDICATION: Abdominal pain, gastric bypass 8 months ago, prior history of ulcers, clinical concern for recurrent ulcer. COMPARISON: KUB 06/30/2024, ultrasound right upper quadrant 04/22/2022, and CT abdomen and pelvis without contrast 04/08/2022. FINDINGS: The included lower lungs are clear. No pleural or pericardial effusions. Heart size is normal. Mild hypodensity in the posterior subcapsular medial segment of left lobe of liver near the gallbladder fossa. Directly anterior to the main portal vein is likely an area of focal fatty replacement, with a hemangioma or other liver lesion less likely; it is not well-seen on the prior noncontrast CT exam of 04/08/2022. It is difficult to measure due to indistinct margins but is approximately 2.5 cm in maximal diameter. Remaining liver, spleen, gallbladder, pancreas, bilateral adrenal glands, and bilateral kidneys are unremarkable. Bladder is unremarkable. Uterus is anteverted. No suspicious adnexal mass. Postsurgical densities in the pelvis suggestive of tubal ligation clips. Tiny amount of free fluid in the posterior cul-de-sac, likely physiological ruptured ovarian follicle or cyst. Postsurgical densities involving the stomach and proximal small intestine related to prior gastric bypass surgery. Moderate stool in the colon. Appendix is normal without appendicitis. No bowel obstruction. No ascites or adenopathy. Aorta is age-appropriate without aneurysm. Sclerotic foci in the proximal femurs are likely benign bone islands. No acute osseous abnormality. Procedure Note Tatyana Rand MD - 12/27/2024 [place] [id number] [facility] [place] [address] EXAMINATION: CT Abdomen and Pelvis with intravenous contrast, axial imageswith 2D coronal and sagittal reconstruction. 85 mL Isovue-370 wasadministered intravenously through an existing right antecubital fossa IVcatheter. This CT exam was performed using one or more of the following dosereduction techniques: automated exposure control, adjustment of the mAand/or kV according to patient size, the use of iterative reconstructiontechnique, use of ALARA (As Low As Reasonably Achievable) and/or use ofImage Gently techniques. INDICATION: Abdominal pain, gastric bypass 8 months ago, prior history ofulcers, clinical concern for recurrent ulcer. COMPARISON: KUB 06/30/2024, ultrasound right upper quadrant 04/22/2022, andCT abdomen and pelvis without contrast 04/08/2022. FINDINGS: The included lower lungs are clear. No pleural or pericardialeffusions. Heart size is normal. Mild hypodensity in the posteriorsubcapsular medial segment of left lobe of liver near the gallbladderfossa. Directly anterior to the main portal vein is likely an area offocal fatty replacement, with a hemangioma or other liver lesion lesslikely; it is not well-seen on the prior noncontrast CT exam of 04/08/2022.It is difficult to measure due to indistinct margins but is approximately2.5 cm in maximal diameter. Remaining liver, spleen, gallbladder,pancreas, bilateral adrenal glands, and bilateral kidneys areunremarkable. Bladder is unremarkable. Uterus is anteverted. Nosuspicious adnexal mass. Postsurgical densities in the pelvis suggestiveof tubal ligation clips. Tiny amount of free fluid in the pwhgncnkvluy-ik-dan, likely physiological ruptured ovarian follicle or cyst. Postsurgical densities involving the stomach and proximal small intestinerelated to prior gastric bypass surgery. Moderate stool in the colon.Appendix is normal without appendicitis. No bowel obstruction. Noascites or adenopathy. Aorta is age- appropriate without aneurysm.Sclerotic foci in the proximal femurs are likely benign bone islands. Noacute osseous abnormality. IMPRESSION: 1. Postsurgical densities in the stomach and proximal small intestinerelated to prior gastric bypass surgery. No bowel obstruction. 2. Moderate stool in the colon suggesting constipation. 3. Hypodensity in the posterior subcapsular medial segment of left lobeof liver near the gallbladder fossa, likely an area of focal fattyreplacement, with a hemangioma or other liver lesion less likely.Recommend ultrasound of the liver as initial step in further assessment.If ultrasound is nondiagnostic, then consider nonemergent MRI of the liverwith and without dynamic contrast enhancement for further assessment. 4. Suspect surgical listhesis related to tubal ligation in the pelvis.Tiny amount of free fluid in the posterior cul-de-sac, likelyphysiological ruptured ovarian follicle or cyst. 5. Sclerotic foci in the proximal femurs are likely benign boneislands. Referred By: Interpreted By: Tatyana Rand MD, 12/27/2024 8:52 PM Devonte Ennis MD CT Final Result * (ABNORMAL) COMPREHENSIVE METABOLIC PANEL (12/27/2024 7:32 PM CDT) SODIUM S/P/B 137 136 - 145 MMOL/L 12/27/2024 8:15 PM CDT [facility] POTASSIUM S/P/B 3.8 3.5 - 5.1 MMOL/L 12/27/2024 8:15 PM CDT [facility] CHLORIDE S/P/B 102 98 - 107 MMOL/L 12/27/2024 8:15 PM CDT [facility] CO2 27.0 21.0 - 32.0 MMOL/L 12/27/2024 8:15 PM CDT [facility] GLUCOSE 73 70 - 99 MG/DL 12/27/2024 8:15 PM [facility] Comment: FASTING GLUCOSE 100 TO 125 MG/DL IS CONSISTENT WITH IMPAIRED FASTING GLUCOSE. FASTING GLUCOSE >125 MG/DL IS CONSISTENT WITH DIABETES. RANDOM GLUCOSE >200 MG/DL WITH HYPERGLYCEMIC SYMPTOMS IS CONSISTENT WITH DIABETES. PER ADA GUIDELINES BUN 12 6 - 24 MG/DL 12/27/2024 8:15 PM T [facility] CREATININE S/P/B 0.87 0.55 - 1.02 MG/DL 12/27/2024 8:15 PM T [facility] CALCIUM S/P/B 9.3 8.4 - 10.5 MG/DL 12/27/2024 8:15 PM [facility] BILIRUBIN TOTAL S/P/B 0.4 0.2 - 1.0 MG/DL 12/27/2024 8:15 PM [facility] Comment: THIS ASSAY IS NOT RECOMMENDED FOR PATIENTS UNDERGOING TREATMENT WITH ELTROMBOPAG DUE TO THE POTENTIAL FOR FALSELY ELEVATED RESULTS. ALKALINE PHOSPHATASE S/P/B 80 37 - 98 U/L 12/27/2024 8:15 PM [facility] AST 14(L) 15 - 37 U/L 12/27/2024 8:15 PM [facility] ALT 20 14 - 59 U/L 12/27/2024 8:15 PM [facility] TOTAL PROTEIN S/P/B 7.1 6.4 - 8.2 G/DL 12/27/2024 8:15 PM [facility] ALBUMIN S/P/B 3.6 3.4 - 5.0 G/DL 12/27/2024 8:15 PM [facility] ANION GAP 8.0 5.0 - 15.0 MMOL/L 12/27/2024 8:15 PM [facility] OSMOLALITY (CALC) 282 MOSM/KG 025 8:15 PM [facility] Comment:REFERENCE RANGE NOT ESTABLISHED GFR ESTIMATE >90 >89 ML/MIN/1. 73 M2 12/27/2024 8:15 PM CDT [facility] GFR NOTES GFR REFERENCE S: 12/27/2024 8:15 PM CDT [facility] Comment: THE ESTIMATED GFR IS CALCULATED USING THE 2020 CKD-EPI EQUATION. THE FOLLOWING CATEGORIES FOR GRADING RENAL FUNCTION ARE RECOMMENDED BY THE INTERNATIONAL SOCIETY OF NEPHROLOGY (KDIGO 2012 CLINICAL PRACTICE GUIDELINE). G1,NORMAL OR HIGH: >89 ml/min/1.73 m2 G2,MILDLY DECREASED: 60-89 ml/min/1.73 m2 G3A,MILDLY TO MODERATELY DECREASED: 45-59 ml/min/1.73 m2 G3B,MODERATELY TO SEVERELY DECREASED: 30-44 ml/min/1.73 m2 G4,SEVERELY DECREASED: 15-29 ml/min/1.73 m2 G5,KIDNEY FAILURE: <15 ml/min/1.73 m2 12/27/2024 7:32 PM CDT Devonte Ennis MD LABORATORY Final Result [facility] [address] [place] [address], * CBC W/DIFF AUTOMATED (12/27/2024 7:32 PM CDT) WBC 9.68 4.00 - 10.80 x10'3/uL 12/27/2024 7:48 PM CDT [facility] RBC 4.79 4.10 - 5.40 x10'6/uL 12/27/2024 7:48 PM CDT [facility] HGB 14.5 12.0 - 16.0 G/DL 12/27/2024 7:48 PM CDT [facility] HCT 42.4 36.0 - 47.0 % 12/27/2024 7:48 PM CDT [facility] MCV 88.5 78.0 - 100.0 FL 12/27/2024 7:48 PM CDT [facility] MCH 30.3 27.0 - 31.0 PG 12/27/2024 7:48 PM CDT [facility] MCHC 34.2 33.0 - 36.0 G/DL 12/27/2024 7:48 PM CDT [facility] RDW 13.1 11.5 - 14.5 % 12/27/2024 7:48 PM CDT [facility] PLT 337 150 - 350 x10'3/uL 12/27/2024 7:48 PM CDT [facility] MPV 8.6 7.4 - 10.4 FL 12/27/2024 7:48 PM CDT [facility] CBC COMMENT NORMAL REFERENCE RANGE NOT ESTABLISHED FOR THE PROPORTIONAL LEUKOCYTE DIFFERENTIAL. 12/27/2024 7:48 PM CDT [facility] NEUTROPHILS % 57.3 % 12/27/2024 7:48 PM CDT [facility] LYMPHOCYTES % 35.5 % 12/27/2024 7:48 PM CDT [facility] MONOCYTES % 5.7 % 12/27/2024 7:48 PM CDT [facility] EOSINOPHILS % 0.9 % 12/27/2024 7:48 PM CDT [facility] BASOPHILS % 0.3 % 12/27/2024 7:48 PM CDT [facility] IMMATURE GRANS % 0.3 % 12/28/19 7:48 PM CDT [facility] NRBC % 0.0 % 12/27/2024 7:48 PM CDT [facility] ABS. NEUTROPHILS 5.54 1.60 - 8.30 x10'3/uL 12/27/2024 7:48 PM CDT [facility] ABS. LYMPHOCYTES 3.44 0.80 - 4.70 x10'3/uL 12/27/2024 7:48 PM CDT [facility] ABS. MONOCYTES 0.55 0.00 - 1.50 x10'3/uL 12/27/2024 7:48 PM CDT [facility] ABS. EOSINOPHILS 0.09 0.00 - 0.40 x10'3/uL 12/27/2024 7:48 PM CDT [facility] ABS. BASOPHILS 0.03 0.00 - 0.20 x10'3/uL 12/27/2024 7:48 PM CDT [facility] ABS. IMMATURE GRANULOCYTES 0.03 0.00 - 0.03 x10'3/uL 12/27/2024 7:48 PM CDT [facility] ABS. NUCLEATED RBC'S 0.00 0.00 - 0.01 x10'3/uL 12/27/2024 7:48 PM CDT [facility] 12/27/2024 7:32 PM CDT us Devonte Ennis MD LABORATORY Final Result [facility] [address] [place] [address], * TROPONIN, QUANT (12/27/2024 7:32 PM CDT) TROPONIN I HIGH SENSITIVITY <4 0 - 51 ng/L 12/27/2024 8:15 PM CDT [facility] 12/27/2024 7:32 PM CDT us Devonte Ennis MD LABORATORY Final Result Performing Organization Address [facility]/ZIP Co de Phone Number [facility] [address] [place] [address], [place] [phone] * LIPASE (12/27/2024 7:32 PM CDT) LIPASE 33 16 - 77 UNITS/L 12/27/2024 8:15 PM CDT [facility] 12/27/2024 7:32 PM CDT us Devonte Ennis MD LABORATORY Final Result Performing Organization Address City/[facility]/ZIP Co de Phone Number [facility] [address] [place], [place] [id number], [place] [phone] * ECG 12 lead (12/27/2024 7:25 PM CDT) 12/27/2024 7:25 PM CDT Narrative [facility] [facility] - 12/27/2024 9:[address] PM [address] 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1990 Requested By: DEVONTE ENNIS Order Number: [id number] Reading MD: Missy Ricks Measurements Intervals Gravity Rate: 71 P: 55 FL: 144 QRS: 45 QRSD: 106 T: 44 QT: 391 QTc: 426 Interpretive Statements SINUS RHYTHM WITH MARKED SINUS ARRHYTHMIA LOW QRS VOLTAGE IN PRECORDIAL LEADS INCOMPLETE RIGHT BUNDLE BRANCH BLOCK us Devonte Ennis MD ECG ORDERABLES Final Result [facility] from Last 3 Months Insurance [address] [place] [address] [place] Care Teams Head Start Teacher Relationship Specialty Start Date End Date Danica Blair MD [address] [facility] [address] [place] [address] PCP - General FAMILY PRACTICE 11/22/20
--- OUTSIDE RECORDS SUMMARY | 2025-02-16 17:59 | XMS_ITS | Referral Summary ---
Author Organization [facility] [address] [facility] Address [address] [place] [address] Care Team Providers Care Exceptional Children Teacher Assistant Name Role Phone Danica Blair MD Primary Care Provider Encounters Date Type Department Care Team Description 12/29/2024 10:32 AM CDT - 12/29/2024 11:59 PM CDT Hospital Encounter [facility] [address] [place], [place] [id number] Discharge Disposition: Discharge to home or self care from Last 3 Months Allergies Active Allergy Reactions Criticality Noted Date Comments Amoxicillin-Pot Clavulanate Nausea & Vomiting Low 05/03/2022 Metronidazole Other (See comments) Low 05/03/2022 Red face and disoriented Nalbuphine Other (See comments) Low 05/03/2022 Forgot to breath Medications Humira,CF, Pen 40 mg/0.4 mL pen injector kitIndications:Hir dradentis Suppurativa Inject 0.4 mL (40 mg total) under the skin every 7 days 2 Active ergocalciferol (VITAMIN D) 50,000 unit capsule Take 1 capsule (50,000 Units total) by mouth once a week Friday 1 Active pen needle, diabetic (TRUEplus Pen Needle) 32 gauge x 5/32 needle USE DAILY DIRECTED 300 each 1 4 Active calcium citrate-vitamin D3 200 mg-6.25 mcg [...] day Start post-surgery 180 capsule 1 4 Active polyethylene glycol (MIRALAX) 17 gram/dose bulk powder Take 17 g by mouth 2 (two) times a day Start post-surgery 1020 g 4 Active hyoscyamine (LEVSIN) 0.125 mg SL tabletIndications: Gastric Cramping Take 1 tablet (0.125 mg total) by mouth every 6 (six) hours for 4 days Start post-surgery 16 tablet 4 Active multivitamin with minerals tablet Take 2 tablets by mouth daily Start taking post surgery 60 tablet 11 4 04/28/20 25 Active valACYclovir (VALTREX) 1 gram tabletIndications: Fever Blister Take 1 tablet (1,000 mg total) by mouth daily as needed (Fever Blister) 4 Active liraglutide (VICTOZA) 0.6 mg/0.1 mL (18 mg/3 mL) injectionIndicatio ns:type 2 diabetes mellitus Inject 1.8 mg under the skin daily Indications: type 2 diabetes mellitus Active sucralfate (CARAFATE) 1 gram tablet Take 1 tablet (1 g total) by mouth 4 (four) times a day 120 tablet 5 10/07/19 26 Active albuterol HFA (PROVENTIL HFA,VENTOLIN HFA,PROAIR HFA) 90 mcg/actuation inhaler Inhale 2 puffs every 4 (four) hours as needed 4 Active dextroamphetamine- amphetamine (ADDERALL) 20 mg tablet TAKE 1 TABLET BY MOUTH IN THE MORNING AND AT NOON 5 Active FeroSuL 325 mg (65 mg iron) tablet Take 1 tablet (325 mg total) by mouth daily Start post-surgery. Take with food and avoid taking within 2 hours of calcium 5 Active Antacid-Antigas 200-200-20 mg/5 mL suspension TAKE 5MLS BY MOUTH THREE TIMES A DAY NEEDED FOR GASTRIC ULCER 5 Active ondansetron ODT (ZOFRAN-ODT) 4 mg disintegrating tablet Take 1 tablet (4 mg total) by mouth every 6 (six) hours as needed 5 Active lidocaine viscous (XYLOCAINE) 2 % solution TAKE 5MLS BY MOUTH THREE TIMES A DAY NEEDED FOR GASTRIC ULCER [address] (PROTONIX) 40 mg EC tablet Take 1 tablet (40 mg total) by mouth daily 30 tablet 5 11/10/19 26 Active cyanocobalamin (vitamin B-12) 500 mcg tabletIndications: Prevention of Vitamin B12 Deficiency Take 1 tablet (500 mcg total) by mouth daily 30 tablet 11 5 12/17/19 26 Active cholecalciferol (VITAMIN D-3) 50,000 unit capsule Take 1 capsule (50,000 Units total) by mouth once a week 4 capsule 6 5 12/17/19 26 Active Active Problems Problem Noted Date Diagnosed Date Hair loss 10/20/2023 Assessment & Plan (10/20/2023 [...] phone. Assessment & Plan (09/25/2022 10:06 PM LOADER OPERATOR SUPERVISOR): Discussed that significant health benefits/risk reduction may [...] 150 minutes per week moderate-intensity aerobic exercise. Type 2 diabetes mellitus wit hout complication, [...] liraglutide. Assessment & Plan (09/25/2022 10:08 PM LOADER OPERATOR SUPERVISOR): Labs. Reviewed available prior labs in chart and Care Everywhere. Continue metformin. Good candidate for tirzepatide or GLP-1 RA. NAFLD (nonalcoholic fatty liver disease) 022 Assessment & Plan (09/25/2022 10:08 PM LOADER OPERATOR SUPERVISOR): Discussed association with insulin resistance. Discussed potential for improvement and/or reduced progression with weight loss. Resolved Problems Problem Noted Date Diagnosed Date Resolved Date Morbid (severe) obesity due to excess calories 05/10/2024 11/09/2024 Morbid obesity 04/08/2024 11/09/2024 Obesity (BMI 30-39.9) 10/20/20232023 Class 3 severe obesity due t o [...] Other: Assessment & Plan (09/25/2022 10:10 PM LOADER OPERATOR SUPERVISOR): Obesity is unchanged.. Plan: General weight loss/lifestyle modification strategies discussed (elicit support from others; identify saboteurs; non-food rewards; etc.)., Diet interventions: as noted.., Informal exercise measures discussed; e.g. taking stairs instead of elevator., Regular aerobic exercise program discussed. and Further, more detailed recommendations pending review of labs and food record. Status post bariatric surgery 05/03/2022 11/23/2023 Social History Tobacco Use Types Packs/Day Years [...] on file Legal Sex Female 11:49 AM LOADER OPERATOR SUPERVISOR Gender Identity Not on file Sexual Orientation Not on file Last Filed Vital Signs Vital Sign Reading Time Taken Comments Blood Pressure 110/79 08/12/2024 10:47 AM LOADER OPERATOR SUPERVISOR Pulse 81 08/12/2024 10:47 AM LOADER OPERATOR SUPERVISOR Temperature 36.7 C (98.1 F) 06/24/2024 10:29 AM LOADER OPERATOR SUPERVISOR Respiratory Rate 16 05/11/2024 11:53 AM CDT Oxygen Saturation 97% 08/12/2024 10:47 AM LOADER OPERATOR SUPERVISOR Inhaled Oxygen Concentration - - Weight 86 kg (189 lb 9.6 oz) 08/12/2024 10:47 AM LOADER OPERATOR SUPERVISOR Height 160 cm (5' 3) 08/12/2024 10:47 AM LOADER OPERATOR SUPERVISOR Body Mass Index 33.59 08/12/2024 10:47 AM LOADER OPERATOR SUPERVISOR Plan of Treatment Not on file Procedures Procedure Name Priority Date/Time Associated Diagnosis Comments CT BODY OUTSIDE REFERENCE Routine 12/29/2024 10:32 AM CDT EGFR Routine 05/10/2024 10:02 PM CDT POCT HEMOGLOBIN A1C Routine 05/05/2024 4 :54 PM CDT HEPATITIS C ANTIBODY Routine 11/21/2023 10:08 AM CDT NAFLD (nonalcoholic fatty liver disease) LIPID PANEL Routine 05/03/2022 9:26 AM CDT Hepatic steatosis Type 2 diabetes mellitus without complication, without long-term current use of insulin (HCC) from Last 3 Months or Most Recently Relevant to Health Maintenance Results * CT Body Outside Reference (12/29/2024 10:32 AM CDT) Impressions [facility] - 12/29/2024 10:32 AM CDT These images are for Reference purposes only and have not been reviewed by [facility] Radiology. There will be no report generated by a [facility] Radiologist. Narrative [facility] - 12/29/2024 10:32 AM CDT EXAMINATION: Images For Reference Purposes Only us Sherif Keys MD IMG CT PROCEDURES Final Result [facility] * eGFR (05/10/2024 10:02 PM CDT) eGFR [...] of Race in Diagnosing Kidney Disease, JASN 202). The CKD-EPI equation should not be used for patients with unstable renal function and has not been validated in children and those over 70. Current interpretive data was last reviewed 2021. Blood 05/10/2024 10:0 2 PM CDT 05/10/2024 10:02 PM CDT us Agapito Steven MD LAB BLOOD ORDERABLES Final Resul t Performing Organization Address City/[facility]/ZIP Co de Phone Number [facility] [address] [facility] [place] [address] * POCT hemoglobin A1c (05/05/2024 4:54 PM CDT) Hgb A1C, POC 5.5 4.0 - 5.6 % Est Average Gluc POC 111 mg/dL [facility] Comment: The ADA recommends reporting an estimated Average Glucose (eAG) with all Hemoglobin A1c results using the equation derived from a study of 507 normal and diabetic adults. Minority populations were underrepresented and children were not included. (Diabetes Care 31:9569-3079, 2008). The eAG is not equivalent to a fasting glucose. Blood 05/05/2024 4:54 PM CDT 05/05/2024 4:54 PM CDT us Agapito Steven MD POINT OF CARE TEST ORDERABLES Fi nal Result [facility] [place] [address] * Hepatitis C antibody Blood (11/21/2023 10:08 AM CDT) Hep C Ab Nonreactive Nonreactive Comment:Antibodies to HCV no t detected. Does NOT exclude the possibility of recent exposure to HCV. Current interpretive data was last revised on 22 Blood 11/21/2023 10:0 8 AM CDT 11/21/2023 11:58 AM CDT us Sherif Keys MD LAB MICROBIOLOGY - GENER AL ORDERABLES Final Result [facility] [place] [address] * (ABNORMAL) Lipid panel (05/03/2022 9:26 AM CDT) Cholesterol 224(H) 30 - 199 mg/dL [facility] Comment: Interpretive Data Ages < or [...] revised on 2018. Triglycerides 183(H) <=149 mg/dL [facility] Comment: Interpretive Data Ages < or [...] revised on 2018. HDL 32(L) >=40 mg/dL [facility] Comment: Interpretive Data Ages < or [...] on 2018. LDL, calculated 155(H) <=129 mg/dL [facility] Comment: Interpretive Data Ages < or [...] revised on 2018. Non-HDL Cholesterol 192 mg/dL [facility] Comment: Interpretive Data Ages < or [...] last revised on 2018. Chol/HDL ratio 7 [facility] Blood 05/03/2022 9:26 AM CDT 05/03/2022 11:30 AM CDT Sherif Keys MD LAB BLOOD ORDERABLES Fin al Result [facility] [place] [address] from Last 3 Months or Most Recently Relevant to Health Maintenance Insurance [facility] Advance Directives For more information, please contact: [phone] * Full Code (Latest Code Status on File) Date Activated Date Inactivated Comments 05/10/2024 12:21 PM 05/11/2024 7:25 PM * Full Code Date Activated Date Inactivated Comments 12/29/2023 8:43 AM 12/29/2023 4:18 PM Care Teams Exceptional Children Teacher Assistant Relationship Specialty Start Date End Date Danica Blair MD [address] [place] [address] PCP - General Family Medicine 06/18/21
--- OUTSIDE RECORDS SUMMARY | 2025-02-16 17:59 | XMS_ITS | Encounter Summary ---
Author Organization [facility] Address [address] [place] [address] Care Team Providers Care Picture Painter Name Role Phone Danica Blair MD Primary Care Provider [phone] Encounter Details Date Type Department Care Team (Late st Contact Info) Description 12/26/2018 Abstract SFL CONVERSION [address] [place] [id number] , Generic ConversionMD Social History Tobacco Use Types Packs/Day Years Used Date Smoking Tobacco: Never Assessed Comments Unknown Sex and Gender Information Value Date Recorded Sex Assigned at Female 12/27/2024 9:21 PM CDT Legal Sex Female 5:55 PM CLINICAL EDUCATOR Gender Identity Not on file Sexual Orientation Not on file documented as of this encounter Plan of Treatment Not on file documented as of this encounter Visit Diagnoses Not on filedocumented in this encounter Additional Health Concerns Infection Onset Date Last Indicated Resolved Time COVID-19 Rule Out 07/03/2022 07/03/2022 07/03/2022 10:57 PM CLINICAL EDUCATOR COVID-19 Rule Out 06/30/2024 06/30/2024 06/30/2024 10:24 AM CLINICAL EDUCATOR documented as of this encounter Care Teams Picture Painter Relationship Specialty Start Date End Date Danica Blair MD [address] [place] [id number] PCP - General FAMILY PRACTICE 11/22/20 documented as of this encounter
--- OUTSIDE RECORDS SUMMARY | 2025-02-16 17:59 | XMS_ITS | Encounter Summary ---
Author Organization [facility] Address [address] [place] [address] Phone Care Team Providers Care Cooper Helper Name Role Phone Danica Blair MD [...] on file Legal Sex Female 11:49 AM UNSCRAMBLER Gender Identity Not on file Sexual Orientation [...] on filedocumented in this encounter Care Teams Cooper Helper Relationship Specialty Start Date End Date Danica Blair MD [address] [place] [address] PCP - General Family Medicine 06/18/21 Rachel Moreira, PT Physical Therapist Physical Therapy 07/24/23 07/24/23 documented as of this encounter
--- OUTSIDE RECORDS SUMMARY | 2025-02-16 17:59 | XMS_ITS | Clinical Summary ---
Author Organization [facility] [address] [facility] Address [address] [place] [address] Care Team Providers Care Cook Sauce Name Role Phone Danica Blair MD Primary Care Provider Allergies Active Allergy Reactions Criticality Noted Date Comments Amoxicillin-Pot Clavulanate Nausea & Vomiting Low 05/03/2022 Metronidazole Other (See comments) Low 05/03/2022 Red face and disoriented Nalbuphine Other (See comments) Low 05/03/2022 Forgot to breath Medications ISSAC Sigala, Pen 40 mg/0.4 mL pen injector kitIndications:Hir [...] mg total) by mouth daily 30 tablet 11/10/19 26 Active cyanocobalamin (vitamin B-12) 500 mcg tabletIndications: Prevention of Vitamin B12 Deficiency Take 1 tablet (500 mcg total) by mouth daily 30 tablet 5 12/17/19 26 Active cholecalciferol (VITAMIN D-3) 50,000 unit capsule Take 1 capsule (50,000 Units total) by mouth once a week 4 capsule 6 12/17/19 26 Active Active Problems Problem Noted [...] phone. Assessment & Plan (09/25/2022 10:06 PM HORSEBACK RIDING INSTRUCTOR): Discussed that significant health benefits/risk reduction may [...] liraglutide. Assessment & Plan (09/25/2022 10:08 PM HORSEBACK RIDING INSTRUCTOR): Labs. Reviewed available prior labs in chart and Care Everywhere. Continue metformin. Good candidate for tirzepatide or GLP-1 RA. NAFLD (nonalcoholic fatty liver disease) 022 Assessment & Plan (09/25/2022 10:08 PM HORSEBACK RIDING INSTRUCTOR): Discussed association with insulin resistance. Discussed potential [...] of 40.0 to 44.9 in adult 09/25/2022 5 Assessment & Plan (01/13/2023 10:22 PM CDT): Obesity is unchanged.. Plan: Diet interventions: as noted.., Regular aerobic exercise program discussed., and Medication as prescribed. Follow up in [] 1 month; [] 2 months; [x] 3 months; [] 6 months; [] Other: Assessment & Plan (09/25/2022 10:10 PM HORSEBACK RIDING INSTRUCTOR): Obesity is unchanged.. Plan: General weight loss/lifestyle modification strategies discussed (elicit support from others; identify saboteurs; non-food rewards; etc.)., Diet interventions: as noted.., Informal exercise measures discussed; e.g. taking stairs instead of elevator., Regular aerobic exercise program discussed. and Further, more detailed recommendations pending review of labs and food record. Status post bariatric surgery 05/03/2022 11/23/2023 Encounters Date Type Department Care Team Description 12/29/2024 10:32 AM CDT - 12/29/2024 11:59 PM CDT Hospital Encounter [facility] Radiology [place] [facility] ([facility]) [address] [place] [address] Discharge Disposition: Discharge to home or self care from Last 3 Months Surgical History Surgery Date Site/Laterality Comments DILATION AND CURETTAGE OF UTERUS ARM SURGERY SKIN GRAFT TUBAL LIGATION Medical History Medical History Date Comments Anxiety 2009 Bipolar disorder (HCC) 2010 Depression 2010 Type 2 diabetes mellitus (HCC) [...] on file Legal Sex Female 11:49 AM HORSEBACK RIDING INSTRUCTOR Gender Identity Not on file Sexual Orientation Not on file Obstetrics History Last Filed Vital Signs Vital Sign Reading Time Taken Comments Blood Pressure 110/79 08/12/2024 10:47 AM HORSEBACK RIDING INSTRUCTOR Pulse 81 08/12/2024 10:47 AM HORSEBACK RIDING INSTRUCTOR Temperature 36.7 C (98.1 F) 06/24/2024 10:29 AM HORSEBACK RIDING INSTRUCTOR Respiratory Rate 16 05/11/2024 11:53 AM CDT Oxygen Saturation 97% 08/12/2024 10:47 AM HORSEBACK RIDING INSTRUCTOR Inhaled Oxygen Concentration - - Weight 86 kg (189 lb 9.6 oz) 08/12/2024 10:47 AM HORSEBACK RIDING INSTRUCTOR Height 160 cm (5' 3) 08/12/2024 10:47 AM HORSEBACK RIDING INSTRUCTOR Body Mass Index 33.59 08/12/2024 10:47 AM HORSEBACK RIDING INSTRUCTOR Plan of Treatment Health Maintenance Due Date Last Done Comments Albumin Creatinine Ratio, Urine 1991 Cervical Cancer Screening 1991 Depression Screening 1991 Dilated Eye Exam 1991 Foot Exam 1991 DTaP/Tdap/Td Vaccine (1 - Tdap) 2002 Varicella Vaccines (1 of 2 - 13+ 2-dose series) 2004 Regular Well Visit/Exam 18-64 2009 Pneumococcal vaccine <65 (1 of 2 - PCV) 2010 HPV Vaccines (1 - 3-dose SCD M series) 2018 Covid-19 Vaccine (2 - 2023-2 5 season) 2024 10/06/2020 Lipid Panel 08/29/2024 08/29/2023, 05/03/2022 Hemoglobin A1C 11/03/2024 05/05/2024, 05/0 09/2023, 05/03/2022 Influenza Vaccine (#1) 2025 eGFR 05/10/2025 05/10/2024, 04/20, 11/21/2023, Additional history exists Hepatitis B Screening Completed 05/03/2022 Hepatitis C Screening Completed 11/21/2023, 022 Procedures Procedure Name Priority Date/Time Associated Diagnosis [...] Outside Reference (12/29/2024 10:32 AM CDT) Impressions [facility] - 12/29/2024 10:32 AM CDT These images are for Reference purposes only and have not been reviewed by [facility] Radiology. There will be no report generated by a [facility] Radiologist. Narrative [facility] - 12/29/2024 [...] 2 PM CDT 05/10/2024 10:02 PM CDT Agapito Steven MD LAB BLOOD ORDERABLES Final Resul t Performing Organization Address City/[facility] Co de Phone Number [facility] [address] [facility] [place] [address] * POCT hemoglobin A1c (05/05/2024 4:54 PM CDT) Hgb A1C, POC 5.5 4.0 - 5.6 % Est Average Gluc POC 111 mg/dL [facility] Comment: The ADA recommends reporting an estimated Average Glucose (eAG) with all Hemoglobin A1c results using the equation derived from a study of 507 normal and diabetic adults. Minority populations were underrepresented and children were not included. (Diabetes Care 31:4908-3994, 2008). The eAG is not equivalent to a fasting glucose. Blood 05/05/2024 4:54 PM CDT 05/05/2024 4:54 PM CDT Agapito Steven MD POINT OF CARE TEST ORDERABLES Fi nal Result Performing Organization Address [facility] de Phone Number [facility] [place] [address] * Hepatitis C antibody Blood (11/21/2023 10:08 AM CDT) Pathologist [facility] Hep C Ab Nonreactive Nonreactive Comment:Antibodies to HCV no t detected. Does NOT exclude the possibility of recent exposure to HCV. Current interpretive data was last revised on 22 Blood 11/21/2023 10:0 8 AM CDT 11/21/2023 11:58 AM CDT Sherif Keys MD LAB MICROBIOLOGY - GENER AL ORDERABLES Final Result Performing Organization Address City/[facility] Co de Phone Number [facility] Department [place] [address] * (ABNORMAL) Lipid panel (05/03/2022 9:26 AM CDT) Cholesterol 224(H) 30 - 199 mg/dL [facility] Comment: Interpretive Data Ages < [...] revised on 2018. Triglycerides 183(H) <=149 mg/dL [facility] Comment: Interpretive Data Ages < [...] revised on 2018. HDL 32(L) >=40 mg/dL [facility] Comment: Interpretive Data Ages < or [...] on 2018. LDL, calculated 155(H) <=129 mg/dL [facility] Comment: Interpretive Data Ages < [...] revised on 2018. Non-HDL Cholesterol 192 mg/dL [facility] Comment: Interpretive Data Ages < [...] Chol/HDL ratio 7 [facility] Blood 05/03/2022 9:26 AM CDT 05/03/2022 11:30 AM CDT Sherif Keys MD LAB BLOOD ORDERABLES Fin al Result [facility] Department [place] [address] from Last 3 Months or Most Recently Relevant to Health Maintenance Insurance [facility] Advance Directives For more information, please contact: [phone] * Full Code (Latest Code Status on File) Date Activated Date Inactivated Comments 05/10/2024 12:21 PM 05/11/2024 7:25 PM * Full Code Date Activated Date Inactivated Comments 12/29/2023 8:43 AM 12/29/2023 4:18 PM Care Teams Cook Sauce Relationship Specialty Start Date End Date Danica Blair MD [address] [address] PCP - General Family Medicine 06/18/21
--- OUTSIDE RECORDS SUMMARY | 2025-02-16 17:59 | XMS_ITS | Clinical Summary ---
Author Organization [facility] Address [address] [place] [address] Care Team Providers Care Central Sterile Tech Name Role Phone Unavailable Primary Care Provider Unavailabl e Source Comments [facility],non-owned Affiliates and Associated Physician Practices is amultiple site organization consisting of ambulatory clinics and hospital sitesin [place], [place], [place] and [place]. This disclosure is being madepursuant to the Care Everywhere program and may not contain all information available regarding this patient. Last updated 18.[facility] [employer] Social History Tobacco Use Types Packs/Day Years Used Date Smoking Tobacco: Never Assessed Comments Unknown Sex and Gender Information Value Date Recorded Sex Assigned at Not on file Legal Sex Female 3:05 PM CLINICAL INFORMATICS STRATEGIST Gender Identity Not on file Sexual Orientation Not on file Plan of Treatment Health Maintenance Due Date Last Done Comments HIV SCREENING 2006 HEPATITIS C SCREENING 03/06/2009 DTAP/TDAP/TD VACCINES (1 - Tdap) 2010 HEPATITIS B VACCINE (1 of 3 - 19+ 3-dose series) 2010 HPV VACCINE (1 - 3-dose SCDM series) 2018 COVID-19 VACCINE ( - 2023-2 5 season) 2024 DEPRESSION SCREENING 07/21/2024 INFLUENZA VACCINE (#1) 2025 ZOSTER VACCINE (1 of 2) 2041 HIB [...] on patient's age to complete this topic Insurance [facility]
--- NOTE | 2025-02-16 18:03 | ED.GENADULT ---
HPI - General Adult General Chief complaint: Back Pain/Injury Stated complaint: pain between shoulder blades Time Seen by Provider: 02/16/25 18:02 Source: patient Mode of arrival: ambulatory History of Present Illness HPI narrative: 34-year-old female with a history of migraine, status post bariatric surgery last year with resolution of diabetes mellitus presents to the ED with -- interscapular pain. No history of trauma. She has had that pain for months. No radiation of the pain. -- Patient has been having loose stools over the past few days. She feels dehydrated. No nausea, vomiting. No fever. Onset (ago): month(s) Location: back Radiation: non-radiation Quality: aching Pain Consistency: constant Relieving factors: none Exacerbating factors: none Associated symptoms: denies other symptoms and other ( Menorrhagia) Treatments prior to arrival: none Related Data Home Medications ?Medication ?Instructions ?Recorded ?Confirmed ?Last Taken ?Type adalimumab 40 mg/0.4 mL 40 mg subcut 04/22/23 Unknown History subcutaneous pen kit (Humira(CF) Pen) ergocalciferol (vitamin D2) 1,250 1,250 mcg 04/22/23 Unknown History mcg (50,000 unit) capsule famotidine 40 mg tablet 40 mg 04/22/23 Unknown History ketoconazole 2 % shampoo topical 04/22/23 Unknown History liraglutide 0.6 mg/0.1 mL (18 mg/3 mg subcut 04/22/23 Unknown History mL) subcutaneous pen injector (Victoza 3-Anuj) metformin 500 mg tablet 500 mg 04/22/23 Unknown History oxcarbazepine 300 mg tablet mg 04/22/23 Unknown History (Trileptal) pen needle, diabetic 32 gauge x 04/22/23 04/22/23 Unknown History (TRUEplus Pen Needle) spironolactone 100 mg tablet 100 mg 04/22/23 Unknown History topiramate 50 mg tablet mg 04/22/23 Unknown History Allergies Allergy/AdvReac Type Severity Reaction Status Date / Time amoxicillin (From Augmentin) Allergy Other Verified 06/29/24 17:47 clavulanic acid (From Allergy Other Verified 06/29/24 17:47 Augmentin) metronidazole Allergy Other Verified 06/29/24 17:47 nalbuphine (From Nubain) Allergy Other Verified 06/29/24 17:47 Review of Systems Review of Systems: All systems reviewed & are unremarkable except as noted in HPI and below Constitutional: Constitutional: Reports as per HPI and Reports no additional constitutional complaints Eyes: Eyes: Reports as per HPI and Reports no additional eye complaints ENT: Reports system reviewed and no additional complaints, except as documented and Reports as per HPI Cardiovascular: Cardiovascular: Reports as per HPI and Reports no additional cardiovascular complaints Respiratory: Respiratory: Reports as per HPI and Reports no additional respiratory complaints Gastrointestinal: Gastrointestinal: Reports as per HPI, Reports no additional gastrointestinal complaints and Reports diarrhea Genitourinary: Genitourinary: Reports no additional female genitourinary complaints and Reports as per HPI Musculoskeletal: Musculoskeletal: Reports back pain Integumentary/Breasts: Skin/Breast: Reports system reviewed and no additional complaints, except as docu and Reports as per HPI Neurologic: Reports system reviewed and no additional complaints, except as documented and Reports as per HPI Psychiatric: Psychiatric: Reports no additional psychiatric complaints, Reports as per HPI and Reports anxiety Endocrine: Endocrine: Reports no additional endocrine complaints and Reports as per HPI Hematologic/Lymphatic: Hematologic/Lymphatic: Reports no additional hematologic/lymphatic complaints and Reports as per HPI Allergic/Immunologic: Allergic/Immunologic: Reports no additional allergic/immunologic complaints and Reports as per HPI PMF Past Medical History Medical History (Updated 02/16/25 @ 19:17 by Tho Kaur MD) Type 2 diabetes mellitus History of PCOS Migraines Surgical History Surgical History (Updated 02/16/25 @ 18:13 by Tho Kaur MD) H/O bariatric surgery Exam Narrative: vitals are stable. afebrile Const: General: no acute distress Orientation/consciousness: patient oriented x3 Limitations: no limitations HENMT: Head: normal to inspection Ears: external ears normal Face/Nose/Sinus: Normal external nose present Face and sinus: normal facial exam Mouth: Yes Normal oral and palatal mucosa present Throat: posterior oropharynx normal Eyes: Conjunctivae: conjunctivae normal Pupils: Equal, round and reactive pupils present EOM: EOMs intact bilaterally Direct Ophthalmoscopy: no photophobia Neck: Neck: normal visual inspection, no lymphadenopathy and no meningeal signs Chest: Chest palpation & inspection: normal inspection of the chest Resp: Effort & Inspection: normal respiratory effort Auscultation: clear to auscultation bilaterally Cardio: Rate: regular rate Rhythm: regular rhythm GI: GI Palp: Yes Soft to palpation Auscultation: normal bowel sounds Other: No tenderness/ rigidity /rebound. : General: Yes no CVA tenderness Back/Spine/Pelvis: Back: no CVA tenderness Other: Tenderness over the midthoracic spine. Normal range of motion. Skin: General skin exam: normal color Rashes: no rashes Wounds: no wounds Neuro: General: patient oriented x3, moves all extremities, no meningeal signs, no focal motor deficits and CN's II-XI intact bilaterally Speech: normal speech Extrem: General: normal to inspection and no clubbing, cyanosis or edema Psych: Mental Status: mental status grossly normal Affect: normal affect Attitude: cooperative Course Course Emergency Course: Diarrhea-- patient is afebrile without any abdominal pain patient has a normal white cell count. Serum bicarbonate is remarkable. Patient has normal BUN/creatinine. mid back pain-- X-ray did not show any acute findings Vital Signs Vital signs: Vital Signs Temperature 37.2 C 02/16/25 17:58 Pulse Rate 91 02/16/25 17:58 Respiratory Rate 16 02/16/25 17:58 Blood Pressure 116/86 02/16/25 17:58 Pulse Oximetry 97 02/16/25 17:58 Oxygen Delivery Room Air 02/16/25 17:58 Temperature 37.2 C 02/16/25 17:58 Pulse Rate 91 02/16/25 17:58 Respiratory Rate 16 02/16/25 17:58 Blood Pressure 116/86 02/16/25 17:58 Pulse Oximetry 97 02/16/25 17:58 Oxygen Delivery Room Air 02/16/25 17:58 Medical Decision Making [facility] Narrative Medical decision making narrative: mid back pain diarrhea Differential Diagnosis Differential Diagnosis: compression fracture of thoracic spine. Vital Signs Vital Signs: Vital Signs Temperature 37.2 C 02/16/25 17:58 Pulse Rate 91 02/16/25 17:58 Respiratory Rate 16 02/16/25 17:58 Blood Pressure 116/86 02/16/25 17:58 Pulse Oximetry 97 02/16/25 17:58 Oxygen Delivery Room Air 02/16/25 17:58 Temperature 37.2 C 02/16/25 17:58 Pulse Rate 91 02/16/25 17:58 Respiratory Rate 16 02/16/25 17:58 Blood Pressure 116/86 02/16/25 17:58 Pulse Oximetry 97 02/16/25 17:58 Oxygen Delivery Room Air 02/16/25 17:58 Lab Data 02/16/25 18:38 02/16/25 18:38 Labs: Lab Results 02/16/25 02/16/25 Range/Units 18:38 18:39 WBC 9.6 (4.8-10.8) K/mm3 RBC 4.97 (4.20-5.40) M/mm3 Hgb 14.6 (12.0-15.0) g/dL Hct 44.1 (35.0-49.0) % MCV 88.7 (78.0-102.0) fL MCH 29.4 (27.0-31.0) pg MCHC 33.1 (32-36) g/dL RDW 13.1 (11.6-14.4) % Plt Count 327 (150-420) K/mm3 MPV 8.9 L (9.2-11.8) fl Immature Gran % (Auto) 0.4 H (0.0-0.0) % Neut % (Auto) 55.5 (50.0-70.0) % Lymph % (Auto) 38.0 (18.0-42.0) % [place] % (Auto) 5.0 (2.0-11.0) % Eos % (Auto) 0.7 L (1.0-6.0) % Baso % (Auto) 0.4 (0.0-1.0) % Lymph # (Auto) 3.66 (1.10-4.50) K/mm3 [place] # (Auto) 0.48 (0.10-0.90) K/mm3 Eos # (Auto) 0.07 (0.02-0.50) K/mm3 Baso # (Auto) 0.04 (0.00-0.10) K/mm3 Abs Immat Gran (auto) 0.04 H (0.00-0.00) K/mm3 Absolute Neuts (auto) 5.34 (1.70-7.20) K/mm3 Absolute Nucleated RBC 0.00 (0.00-0.00) K/mm3 Nucleated RBC % 0.0 (0-0.0) % Sodium 138 (137-145) mmol/L Potassium 3.8 (3.4-5.0) mmol/L Chloride 107 (98-107) mmol/L Carbon Dioxide 27 (22-30) mmol/L Anion Gap 4 (4-12) mmol/L BUN 5 L (7-17) mg/dL Creatinine 0.57 L (0.7-1.0) mg/dL Estim Creat Clear Calc 98 ml/min Estimated GFR > 60 (59 - ) Glucose 113 H (65-110) mg/dL Calculated Osmolality 284 L (285-295) mOsm/kg Lactic Acid 1.4 (0.4-2.0) mmol/L Calcium 8.5 (8.4-10.2) mg/dL Total Bilirubin 0.4 (0.2-1.3) mg/dL AST 26 (14-36) U/L ALT 21 (6-35) U/L Alkaline Phosphatase 55 (38-126) U/L Total Protein 6.8 (6.3-8.2) g/dL Albumin 4.2 (3.5-5.1) g/dL Vitamin D 25-Hydroxy Pending Discharge Plan Discharge Clinical Impression: Diarrhea Qualifiers: Diarrhea type: unspecified type Qualified Code(s): R19.7 - Diarrhea, unspecified Back pain Qualifiers: Back pain location: thoracic back pain Chronicity: chronic Back pain laterality: midline Qualified Code(s): M54.6 - Pain in thoracic spine Patient Disposition: Home Condition: Stable Instructions: Antibiotic Form, Acute Diarrhea (ED), Musculoskeletal Pain (ED) Patient Language: Honduran Prescriptions: No Action metformin 500 mg tablet 500 mg ketoconazole 2 % shampoo TOPICAL famotidine 40 mg tablet 40 mg spironolactone 100 mg tablet 100 mg oxcarbazepine [Trileptal] 300 mg tablet ergocalciferol (vitamin D2) 1,250 mcg (50,000 unit) capsule 1,250 mcg topiramate 50 mg tablet Victoza 3-Anuj 0.6 mg/0.1 mL (18 mg/3 mL) pen injector SUBCUT (DME) pen needle, diabetic [TRUEplus Pen Needle] 32 gauge x 5/32 needle MISCELLANEOUS Humira(CF) Pen 40 mg/0.4 mL pen injector kit 40 mg SUBCUT sulfamethoxazole-trimethoprim [Bactrim DS] 800-160 mg tablet 1 tablet PO Q12H Qty: 10 0RF pantoprazole [Protonix] 40 mg tablet,delayed release (DR/EC) 40 mg PO QAM 28 Days Qty: 28 0RF ondansetron 4 mg tablet,disintegrating 4 mg PO Q6H PRN (Reason: nausea and vomiting) Qty: 14 0RF Follow-up/Referrals: Danica Blair MD [Primary Care Provider] - Time of Disposition: 19:17
[2025-02-16 18:43] LABS: Hematocrit 44.1 % (35.0-49.0); Hemoglobin 14.6 g/dL (12.0-15.0); Immature Granulocyte Percent A 0.4 % (0.0-0.0); Lymphocytes Absolute Auto 3.66 K/mm3 (1.10-4.50); Mean Corpuscular HGB Conc 33.1 g/dL (32-36); Mean Corpuscular Hemoglobin 29.4 pg (27.0-31.0); Mean Corpuscular Volume 88.7 fL (78.0-102.0); Nucleated Red Blood Cells Absolute Auto 0.00 K/mm3 (0.00-0.00); Nucleated Red Blood Cells Perc 0.0 % (0-0.0); Platelet Count Result 327 K/mm3 (150-420); Red Blood Count 4.97 M/mm3 (4.20-5.40); White Blood Count 9.6 K/mm3 (4.8-10.8)
--- OUTSIDE RECORDS SUMMARY | 2025-02-16 18:46 | XMS_ITS | Encounter Summary ---
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
--- OUTSIDE RECORDS SUMMARY | 2025-02-16 18:46 | XMS_ITS | Clinical Summary ---
Author Organization [facility] [address] [facility] Address [address] [place] [address] Care Team Providers Care Business Process Consultant Name Role Phone Danica Blair MD Primary Care Provider [phone] Allergies Active Allergy Reactions Criticality Noted Date [...] phone. Assessment & Plan (09/25/2022 10:06 PM HEALTHCARE FACILITY ADMINISTRATOR): Discussed that significant health benefits/risk reduction may [...] liraglutide. Assessment & Plan (09/25/2022 10:08 PM HEALTHCARE FACILITY ADMINISTRATOR): Labs. Reviewed available prior labs in chart and Care Everywhere. Continue metformin. Good candidate for tirzepatide or GLP-1 RA. NAFLD (nonalcoholic fatty liver disease) 022 Assessment & Plan (09/25/2022 10:08 PM HEALTHCARE FACILITY ADMINISTRATOR): Discussed association with insulin resistance. Discussed potential [...] Other: Assessment & Plan (09/25/2022 10:10 PM HEALTHCARE FACILITY ADMINISTRATOR): Obesity is unchanged.. Plan: General weight loss/lifestyle [...] - 12/29/2024 11:59 PM CDT Hospital Encounter [facility] ([facility]) [address] [place] [address] Discharge Disposition: Discharge to home or self [...] on file Legal Sex Female 11:49 AM HEALTHCARE FACILITY ADMINISTRATOR Gender Identity Not on file Sexual Orientation Not on file Obstetrics History Last Filed Vital Signs Vital Sign Reading Time Taken Comments Blood Pressure 110/79 08/12/2024 10:47 AM HEALTHCARE FACILITY ADMINISTRATOR Pulse 81 08/12/2024 10:47 AM HEALTHCARE FACILITY ADMINISTRATOR Temperature 36.7 C (98.1 F) 06/24/2024 10:29 AM HEALTHCARE FACILITY ADMINISTRATOR Respiratory Rate 16 05/11/2024 11:53 AM CDT Oxygen Saturation 97% 08/12/2024 10:47 AM HEALTHCARE FACILITY ADMINISTRATOR Inhaled Oxygen Concentration - - Weight 86 kg (189 lb 9.6 oz) 08/12/2024 10:47 AM HEALTHCARE FACILITY ADMINISTRATOR Height 160 cm (5' 3) 08/12/2024 10:47 AM HEALTHCARE FACILITY ADMINISTRATOR Body Mass Index 33.59 08/12/2024 10:47 AM HEALTHCARE FACILITY ADMINISTRATOR Plan of Treatment Health Maintenance Due Date [...] Outside Reference (12/29/2024 10:32 AM CDT) Impressions [facility] - 12/29/2024 10:32 AM CDT These images are for Reference purposes only and have not been reviewed by [facility]iology. There will be no report generated by a [facility] Radiologist. Narrative [facility] - 12/29/2024 [...] Resul t Performing Organization Address City/[facility] Co de Phone Number [facility] [address] [facility] [place] [address] * POCT hemoglobin A1c (05/05/2024 4:54 PM CDT) Hgb A1C, POC 5.5 4.0 - 5.6 % Est Average Gluc POC 111 mg/dL [facility] Comment: The ADA recommends reporting an estimated Average Glucose (eAG) with all Hemoglobin A1c results using the equation derived from a study of 507 normal and diabetic adults. Minority populations were underrepresented and children were not included. (Diabetes Care 31:0256-4407, 2008). The eAG is not equivalent to a fasting glucose. Blood 05/05/2024 4:54 PM CDT 05/05/2024 4:54 PM CDT Agapito Steven MD POINT OF CARE TEST ORDERABLES Fi nal Result Performing Organization Address [facility] de Phone Number [facility] [place] [address] * Hepatitis C antibody Blood (11/21/2023 10:08 AM CDT) Pathologist [facility] Hep C Ab Nonreactive Nonreactive Comment:Antibodies to HCV no t detected. Does NOT exclude the possibility of recent exposure to HCV. Current interpretive data was last revised on 22 Blood 11/21/2023 10:0 8 AM CDT 11/21/2023 11:58 AM CDT Sherif Keys MD LAB MICROBIOLOGY - GENER AL ORDERABLES Final Result Performing Organization Address City/[facility] Co de Phone Number [facility] Department [place] [address] * (ABNORMAL) Lipid panel (05/03/2022 9:26 AM CDT) Cholesterol 224(H) 30 - 199 mg/dL [facility] Comment: Interpretive Data Ages < or = [...] revised on 2018. Triglycerides 183(H) <=149 mg/dL [facility] Comment: Interpretive Data Ages < or = [...] revised on 2018. HDL 32(L) >=40 mg/dL [facility] Comment: Interpretive Data Ages < or [...] on 2018. LDL, calculated 155(H) <=129 mg/dL [facility] Comment: Interpretive Data Ages < or = [...] revised on 2018. Non-HDL Cholesterol 192 mg/dL [facility] Comment: Interpretive Data Ages < or = [...] last revised on 2018. Chol/HDL ratio 7 [facility] Blood 05/03/2022 9:26 AM CDT 05/03/2022 11:30 AM CDT Sherif Keys MD LAB BLOOD ORDERABLES Fin al Result [facility] Department [place] [address] from Last 3 Months or Most Recently Relevant to Health Maintenance Insurance [facility] Advance Directives For more information, please contact: [phone] * Full Code (Latest Code Status on File) Date Activated Date Inactivated Comments 05/10/2024 12:21 PM 05/11/2024 7:25 PM * Full Code Date Activated Date Inactivated Comments 12/29/2023 8:43 AM 12/29/2023 4:18 PM Care Teams Business Process Consultant Relationship Specialty Start Date End Date Danica Blair MD [address] [place] [address] PCP - General Family Medicine 06/18/21
--- OUTSIDE RECORDS SUMMARY | 2025-02-16 18:46 | XMS_ITS | Clinical Summary ---
Author Organization [facility] Address [address] [place] [address] Care Team Providers Care Passenger Flagman Name Role Phone Unavailable Primary Care Provider Unavailabl e Source Comments [facility],non-owned Affiliates and Associated Physician Practices is amultiple site organization consisting of ambulatory clinics and hospital sitesin [place], [place], [place] and [place]. This disclosure is being madepursuant to the Care Everywhere program and may not contain all information available regarding this patient. 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
--- OUTSIDE RECORDS SUMMARY | 2025-02-16 18:46 | XMS_ITS | Encounter Summary ---
Author Organization [facility] Address [address] [place] [address] Care Team Providers Care Wool Grader Name Role Phone Danica Blair MD Primary Care Provider [phone] Encounter Details Date Type Department Care Team (Late st Contact Info) Description 12/26/2018 Abstract [facility] CONVERSION [address] [place] [id number] , Generic ConversionMD Social History Tobacco Use Types Packs/Day Years Used Date Smoking Tobacco: Never Assessed Comments Unknown Sex and Gender Information Value Date Recorded Sex Assigned at Female 12/27/2024 9:21 PM CDT Legal Sex Female 5:55 PM SUPPLY CHAIN TECH Gender Identity Not on file Sexual Orientation Not on file documented as of this encounter Plan of Treatment Not on file documented as of this encounter Visit Diagnoses Not on filedocumented in this encounter Additional Health Concerns Infection Onset Date Last Indicated Resolved Time COVID-19 Rule Out 07/03/2022 07/03/2022 07/03/2022 10:57 PM SUPPLY CHAIN TECH COVID-19 Rule Out 06/30/2024 06/30/2024 06/30/2024 10:24 AM SUPPLY CHAIN TECH documented as of this encounter Care Teams Wool Grader Relationship Specialty Start Date End Date Danica Blair MD [address] [place] [id number] PCP - General FAMILY PRACTICE 11/22/20 documented as of this encounter
--- OUTSIDE RECORDS SUMMARY | 2025-02-16 18:46 | XMS_ITS | Referral Summary ---
Author Organization [facility] [address] [facility] Address [address] [place] [address] Care Team Providers Care Sample Stitcher Name Role Phone Danica Blair MD Primary Care Provider Encounters Date Type Department Care Team Description 12/29/2024 10:32 AM CDT - 12/29/2024 11:59 PM CDT Hospital Encounter [facility] [address] [place], [place] [id number] Discharge Disposition: Discharge to home or self [...] phone. Assessment & Plan (09/25/2022 10:06 PM QUILL CLEANER): Discussed that significant health benefits/risk reduction [...] liraglutide. Assessment & Plan (09/25/2022 10:08 PM QUILL CLEANER): Labs. Reviewed available prior labs in chart and Care Everywhere. Continue metformin. Good candidate for tirzepatide or GLP-1 RA. NAFLD (nonalcoholic fatty liver disease) 022 Assessment & Plan (09/25/2022 10:08 PM QUILL CLEANER): Discussed association with insulin resistance. Discussed [...] Other: Assessment & Plan (09/25/2022 10:10 PM QUILL CLEANER): Obesity is unchanged.. Plan: General weight [...] on file Legal Sex Female 11:49 AM QUILL CLEANER Gender Identity Not on file Sexual Orientation Not on file Last Filed Vital Signs Vital Sign Reading Time Taken Comments Blood Pressure 110/79 08/12/2024 10:47 AM QUILL CLEANER Pulse 81 08/12/2024 10:47 AM QUILL CLEANER Temperature 36.7 C (98.1 F) 06/24/2024 10:29 AM QUILL CLEANER Respiratory Rate 16 05/11/2024 11:53 AM CDT Oxygen Saturation 97% 08/12/2024 10:47 AM QUILL CLEANER Inhaled Oxygen Concentration - - Weight 86 kg (189 lb 9.6 oz) 08/12/2024 10:47 AM QUILL CLEANER Height 160 cm (5' 3) 08/12/2024 10:47 AM QUILL CLEANER Body Mass Index 33.59 08/12/2024 10:47 AM QUILL CLEANER Plan of Treatment Not on file [...] only and have not been reviewed by [facility] Radiology. There will be no report generated by a [facility] Radiologist. Narrative [facility] - 12/29/2024 10:32 AM [...] [facility]/ZIP Co de Phone Number [facility] [address] [address] [place] [address] * POCT hemoglobin A1c (05/05/2024 4:54 PM CDT) Hgb A1C, POC 5.5 4.0 - 5.6 % Est Average Gluc POC 111 mg/dL [facility] Comment: The ADA recommends reporting an estimated Average Glucose (eAG) with all Hemoglobin A1c results using the equation derived from a study of 507 normal and diabetic adults. Minority populations were underrepresented and children were not included. (Diabetes Care 31:2832-5166, 2008). The eAG is not equivalent to a fasting glucose. Blood 05/05/2024 4:54 PM CDT 05/05/2024 4:54 PM CDT us Agapito Steven MD POINT OF CARE TEST ORDERABLES Fi nal Result [facility] Department [place] [address] * Hepatitis C antibody Blood (11/21/2023 10:08 AM CDT) Hep C Ab Nonreactive Nonreactive Comment:Antibodies to HCV no t detected. Does NOT exclude the possibility of recent exposure to HCV. Current interpretive data was last revised on 22 Blood 11/21/2023 10:0 8 AM CDT 11/21/2023 11:58 AM CDT us Sherif Keys MD LAB MICROBIOLOGY - GENER AL ORDERABLES Final Result [facility] Department [place] [address] * (ABNORMAL) Lipid panel (05/03/2022 9:26 AM CDT) Cholesterol 224(H) 30 - 199 mg/dL [facility] Comment: Interpretive Data Ages < or [...] on 2018. Triglycerides 183(H) <=149 mg/dL [facility] Comment: Interpretive Data Ages < or [...] on 2018. HDL 32(L) >=40 mg/dL [facility] Comment: Interpretive Data Ages < or [...] 2018. LDL, calculated 155(H) <=129 mg/dL [facility] Comment: Interpretive Data Ages < or [...] on 2018. Non-HDL Cholesterol 192 mg/dL [facility] Comment: Interpretive Data Ages < or [...] revised on 2018. Chol/HDL ratio 7 [facility] Blood 05/03/2022 9:26 AM CDT 05/03/2022 11:30 AM CDT Sherif Keys MD LAB BLOOD ORDERABLES Fin al Result [facility] Department [place] [address] from Last 3 Months or Most Recently Relevant to Health Maintenance Insurance [facility] Advance Directives For more information, please contact: [phone] * Full Code (Latest Code Status on File) Date Activated Date Inactivated Comments 05/10/2024 12:21 PM 05/11/2024 7:25 PM * Full Code Date Activated Date Inactivated Comments 12/29/2023 8:43 AM 12/29/2023 4:18 PM Care Teams Sample Stitcher Relationship Specialty Start Date End Date Danica Blair MD [address] [place] [address] PCP - General Family Medicine 06/18/21
--- OUTSIDE RECORDS SUMMARY | 2025-02-16 18:46 | XMS_ITS | Clinical Summary ---
Author Organization [facility] Address [address] [place] [id number] Care Team Providers Care Warper Tender Name Role Phone Danica Blair MD Primary Care Provider [phone] Allergies Active Allergy Reactions Criticality Noted Date Comments Amoxicillin-Pot Clavulanate Unknown,Nausea and Vomiting Low 11/24/2020 Metronidazole Unknown,Other (see comment) Low 11/24/2020 Red face and disoriented Nalbuphine Unknown,Other (see comment) Low 11/24/2020 breathing Medications vitamin D2, ergocalciferol, 27420 UNITS capsule 1 (one) Capsule weekly x [...] CDT - 12/27/2024 9:22 PM CDT Emergency [place] [facility] [facility] [address] [place] Devonte Ennis MD Abdominal Pain Discharge [...] PM CDT Legal Sex Female 5:55 PM [employer] Gender Identity Not on file Sexual Orientation [...] 8:52 PM Narrative 12/27/2024 9:06 PM CDT [place] [id number] [place] [address] EXAMINATION: CT Abdomen and Pelvis with intravenous [...] Procedure Note Tatyana Rand MD - 12/27/2024 [place] [id number] [place] [address] EXAMINATION: CT Abdomen and Pelvis with intravenous [...] Tiny amount of free fluid in the [id number], likely physiological ruptured ovarian follicle or cyst. [...] - 145 MMOL/L 12/27/2024 8:15 PM CDT [facility] POTASSIUM S/P/B 3.8 3.5 - 5.1 MMOL/L 12/27/2024 8:15 PM CDT [facility] CHLORIDE S/P/B 102 98 - 107 MMOL/L 12/27/2024 8:15 PM CDT [facility] CO2 27.0 21.0 - 32.0 MMOL/L 12/27/2024 8:15 PM CDT [facility] GLUCOSE 73 70 - 99 MG/DL 12/27/2024 8:15 PM [facility] Comment: FASTING GLUCOSE 100 TO 125 MG/DL IS CONSISTENT WITH IMPAIRED FASTING GLUCOSE. FASTING GLUCOSE >125 MG/DL IS CONSISTENT WITH DIABETES. RANDOM GLUCOSE >200 MG/DL WITH HYPERGLYCEMIC SYMPTOMS IS CONSISTENT WITH DIABETES. PER ADA GUIDELINES BUN 12 6 - 24 MG/DL 12/27/2024 8:15 PM T [facility] CREATININE S/P/B 0.87 0.55 - 1.02 MG/DL 12/27/2024 8:15 PM T [facility] CALCIUM S/P/B 9.3 8.4 - 10.5 MG/DL 12/27/2024 8:15 PM [facility] BILIRUBIN TOTAL S/P/B 0.4 0.2 - 1.0 MG/DL 12/27/2024 8:15 PM [facility] Comment: THIS ASSAY IS NOT RECOMMENDED FOR PATIENTS UNDERGOING TREATMENT WITH ELTROMBOPAG DUE TO THE POTENTIAL FOR FALSELY ELEVATED RESULTS. ALKALINE PHOSPHATASE S/P/B 80 37 - 98 U/L 12/27/2024 8:15 PM [facility] AST 14(L) 15 - 37 U/L 12/27/2024 8:15 PM [facility] ALT 20 14 - 59 U/L 12/27/2024 8:15 PM [facility] TOTAL PROTEIN S/P/B 7.1 6.4 - 8.2 G/DL 12/27/2024 8:15 PM [facility] ALBUMIN S/P/B 3.6 3.4 - 5.0 G/DL 12/27/2024 8:15 PM [facility] ANION GAP 8.0 5.0 - 15.0 MMOL/L 12/27/2024 8:15 PM [facility] OSMOLALITY (CALC) 282 MOSM/KG 025 8:15 PM [facility] Comment:REFERENCE RANGE NOT ESTABLISHED GFR ESTIMATE >90 >89 ML/MIN/1. 73 M2 12/27/2024 8:15 PM CDT [facility] GFR NOTES GFR REFERENCE S: 12/27/2024 8:15 PM CDT [facility] Comment: THE ESTIMATED GFR IS CALCULATED [...] CDT Devonte Ennis MD LABORATORY Final Result [facility] [address] [place] [address], * CBC W/DIFF AUTOMATED (12/27/2024 7:32 PM CDT) WBC 9.68 4.00 - 10.80 x10'3/uL 12/27/2024 7:48 PM CDT [facility] RBC 4.79 4.10 - 5.40 x10'6/uL 12/27/2024 7:48 PM CDT [facility] HGB 14.5 12.0 - 16.0 G/DL 12/27/2024 7:48 PM CDT [facility] HCT 42.4 36.0 - 47.0 % 12/27/2024 7:48 PM CDT [facility] MCV 88.5 78.0 - 100.0 FL 12/27/2024 7:48 PM CDT [facility] MCH 30.3 27.0 - 31.0 PG 12/27/2024 7:48 PM CDT [facility] MCHC 34.2 33.0 - 36.0 G/DL 12/27/2024 7:48 PM CDT [facility] RDW 13.1 11.5 - 14.5 % 12/27/2024 7:48 PM CDT [facility] PLT 337 150 - 350 x10'3/uL 12/27/2024 7:48 PM CDT [facility] MPV 8.6 7.4 - 10.4 FL 12/27/2024 7:48 PM CDT [facility] CBC COMMENT NORMAL REFERENCE RANGE NOT ESTABLISHED FOR THE PROPORTIONAL LEUKOCYTE DIFFERENTIAL. 12/27/2024 7:48 PM CDT [facility] NEUTROPHILS % 57.3 % 12/27/2024 7:48 PM CDT [facility] LYMPHOCYTES % 35.5 % 12/27/2024 7:48 PM CDT [facility] MONOCYTES % 5.7 % 12/27/2024 7:48 PM CDT [facility] EOSINOPHILS % 0.9 % 12/27/2024 7:48 PM CDT [facility] BASOPHILS % 0.3 % 12/27/2024 7:48 PM CDT [facility] IMMATURE GRANS % 0.3 % 12/28/19 7:48 PM CDT [facility] NRBC % 0.0 % 12/27/2024 7:48 PM CDT [facility] ABS. NEUTROPHILS 5.54 1.60 - 8.30 x10'3/uL 12/27/2024 7:48 PM CDT [facility] ABS. LYMPHOCYTES 3.44 0.80 - 4.70 x10'3/uL 12/27/2024 7:48 PM CDT [facility] ABS. MONOCYTES 0.55 0.00 - 1.50 x10'3/uL 12/27/2024 7:48 PM CDT [facility] ABS. EOSINOPHILS 0.09 0.00 - 0.40 x10'3/uL 12/27/2024 7:48 PM CDT [facility] ABS. BASOPHILS 0.03 0.00 - 0.20 x10'3/uL 12/27/2024 7:48 PM CDT [facility] ABS. IMMATURE GRANULOCYTES 0.03 0.00 - 0.03 x10'3/uL 12/27/2024 7:48 PM CDT [facility] ABS. NUCLEATED RBC'S 0.00 0.00 - 0.01 x10'3/uL 12/27/2024 7:48 PM CDT [facility] 12/27/2024 7:32 PM CDT us Devonte Ennis MD LABORATORY Final Result [facility] [address] [place] [address], * TROPONIN, QUANT (12/27/2024 7:32 PM CDT) TROPONIN I HIGH SENSITIVITY <4 0 - 51 ng/L 12/27/2024 8:15 PM CDT [facility] 12/27/2024 7:32 PM CDT us Devonte Ennis MD LABORATORY Final Result Performing Organization Address [facility]/ZIP Co de Phone Number [facility] [address] [place] [address], [place] [phone] * LIPASE (12/27/2024 7:32 PM CDT) LIPASE 33 16 - 77 UNITS/L 12/27/2024 8:15 PM CDT [facility] 12/27/2024 7:32 PM CDT us Devonte Ennis MD LABORATORY Final Result Performing Organization Address City/[facility]/ZIP Co de Phone Number [facility] [address] [place], [place] [id number], [place] [phone] * ECG 12 lead (12/27/2024 7:25 PM CDT) 12/27/2024 7:25 PM CDT Narrative [facility] - 12/27/2024 9:40 PM CDT [address] 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: [facility] : 1990 Requested By: DEVONTE ENNIS Order Number: [id number] Reading MD: Missy Ricks Measurements Intervals [place] Rate: 71 P: 55 IA: 144 QRS: 45 QRSD: 106 T: 44 QT: 391 QTc: 426 Interpretive Statements SINUS RHYTHM WITH MARKED SINUS ARRHYTHMIA LOW QRS VOLTAGE IN PRECORDIAL LEADS INCOMPLETE RIGHT BUNDLE BRANCH BLOCK us Devonte Ennis MD ECG ORDERABLES Final Result [facility] Last 3 Months Insurance [address] [place] [address] [place] Care Teams Warper Tender Relationship Specialty Start Date End Date Danica Blair MD [address] [place] [address] PCP - General FAMILY PRACTICE 11/22/20
--- NOTE | 2025-02-16 18:51 | PC.NURSE ---
report to milad churchill
[2025-02-16 18:55] LABS: Alanine Aminotransferase 21 U/L (6-35); Albumin Level 4.2 g/dL (3.5-5.1); Alkaline Phosphatase 55 U/L (38-126); Anion Gap 4 mmol/L (4-12); Aspartate Amino Transferase 26 U/L (14-36); Bilirubin,Total 0.4 mg/dL (0.2-1.3); Blood Urea Nitrogen 5 mg/dL (7-17); Calcium 8.5 mg/dL (8.4-10.2); Carbon Dioxide 27 mmol/L (22-30); Chloride 107 mmol/L (98-107); Estimated CRCL calculation 98 ml/min; Estimated Glomerular Filt Rate > 60; Glucose 113 mg/dL (65-110); Osmolality Calculated 284 mOsm/kg (285-295); Potassium 3.8 mmol/L (3.4-5.0); Sodium 138 mmol/L (137-145); Total Protein 6.8 g/dL (6.3-8.2)
[2025-02-16 19:20] VITALS: BP 116/79; PULSE 87; RESP 18; TEMP 36.2; O2SAT 98
== END 2025-02-16 19:25 | disposition home or self-care (01) ==
PROVIDERS: Emergency Provider Internal Medicine Critical Care Medicine; PCP Family Medicine
DX: R19.7 Diarrhea, unspecified (principal); M54.6 Pain in thoracic spine; E11.9 Type 2 diabetes mellitus without complications
CPT/HCPCS: 36415; 72070; 80053; 82306; 83605; 85025; 99283